=== PATIENT | female | born 1985 | race Hispanic/Latino ===

== ENCOUNTER 2018-12-03 14:50 | Emergency (ER) | payer OTHER ==
[2018-12-03] MEDS ORDERED: KETOROLAC 30 MG/ML INJ ONE (15:43)
[2018-12-03] MEDS ORDERED: DEXAMETHASONE 10 MG/ML VIAL ONE (15:43)
[2018-12-03] MEDS ORDERED: DIAZEPAM 10 MG/2 ML INJ SYRINGE ONE ×2 (15:44→17:55)
--- NOTE | 2018-12-03 17:37 | RAD REPORT ---
EXAM DESCRIPTION: RAD - Lumbar Spine 3 Views - 12/03/2018 4:30 pm CLINICAL HISTORY: Back pain, radiculopathy COMPARISON: January 2010 FINDINGS: A three-view lumbar spine examination was performed. Lumbar bodies are normal in height an d alignment. No fracture or acute bony process seen. No disc space narrowing. No pars defects identif ied. Degenerative changes are present at the T11-12 disc space minimally progressive. Wedging of the T11 b oriana is not new but may have progressed slightly from prior imaging. Lap band is in place. IMPRESSION: No acute finding in the lumbar spine. Wedge compression of T11 may be fractionally progressive from 2010. Degenerative change at T11-12 dis c space has progressed.
--- NOTE | 2018-12-03 17:54 | ER ---
Nurse's Notes [facility] Name: Miranda Pacheco Age: 33 yrs Sex: Female : 1985 Arrival Date: 12/03/2018 Time: 14:52 Bed 28 Private MD: Ken Phillips F Diagnosis: Sciatica;Sprain of ligaments of lumbar spine Presentation: 12/03 14:56 Presenting complaint: Patient states: low back pain after bending down to get something sv off of the floor yesterday. Transition of care: patient was not received from another setting of care. Onset of symptoms was December 02, 2018. Care prior to arrival: Medication(s) given: Aleve taken this morning. 14:56 Method Of Arrival: Wheelchair sv 14:56 Acuity: LUCIAN 4 sv 14:59 Risk Assessment: Do you want to hurt yourself or someone else? Patient reports no tw2 desire to harm self or others. Initial Sepsis Screen: Does the patient meet any 2 criteria? No. Patient's initial sepsis screen is negative. Does the patient have a suspected source of infection? No. Patient's initial sepsis screen is negative. Triage Assessment: 14:57 General: Appears in no apparent distress. uncomfortable, Behavior is calm, cooperative, sv appropriate for age. Pain: Complains of pain in low back area Pain currently is 10 out of 10 on a pain scale. Neuro: Level of Consciousness is awake, alert, obeys commands, Oriented to person, place, time, situation. Respiratory: Respiratory effort is even, unlabored, Respiratory pattern is regular, symmetrical. Musculoskeletal: Range of motion: intact in all extremities. 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 tw2 Historical: - Allergies: 14:57 No Known Allergies; sv - PMHx: 14:57 None; sv - PSHx: 14:57 Hernia repair; lap band; sv - Immunization history:: Flu vaccine is up to date. - Social history:: Smoking status: Patient/guardian denies using tobacco. - Ebola Screening: : No symptoms or risks identified at this time. Screenin:59 Abuse screen: Denies threats or abuse. Nutritional screening: No deficits noted. tw2 Tuberculosis screening: No symptoms or risk factors identified. Fall Risk None identified. Assessment: 14:59 General: Appears in no apparent distress. Behavior is calm, cooperative, appropriate tw2 for age. Pain: Complains of pain in low back area. Neuro: Level of Consciousness is awake, alert, obeys commands, Oriented to person, place, time, situation. Cardiovascular: Patient's skin is warm and dry. Respiratory: Airway is patent Respiratory effort is even, unlabored, Respiratory pattern is regular, symmetrical. GI: No signs and/or symptoms were reported involving the gastrointestinal system. : No signs and/or symptoms were reported regarding the genitourinary system. Musculoskeletal: Reports pain in low back area. 15:55 Reassessment: Patient appears in no apparent distress at this time. Patient and/or tw2 family updated on plan of care and expected duration. Pain level reassessed. Patient is alert, oriented x 3, equal unlabored respirations, skin warm/dry/pink. 16:40 Reassessment: Patient appears in no apparent distress at this time. Patient and/or tw2 family updated on plan of care and expected duration. Pain level reassessed. Patient is alert, oriented x 3, equal unlabored respirations, skin warm/dry/pink. pt now states pain "8-8.5" Patient states symptoms have improved. 17:35 Reassessment: Patient appears in no apparent distress at this time. Patient and/or tw2 family updated on plan of care and expected duration. Pain level reassessed. Patient is alert, oriented x 3, equal unlabored respirations, skin warm/dry/pink. 17:55 Reassessment: Patient appears in no apparent distress at this time. Patient and/or tw2 family updated on plan of care and expected duration. Pain level reassessed. Patient is alert, oriented x 3, equal unlabored respirations, skin warm/dry/pink. 18:32 Reassessment: Patient appears in no apparent distress at this time. Patient and/or tw2 family updated on plan of care and expected duration. Pain level reassessed. Patient is alert, oriented x 3, equal unlabored respirations, skin warm/dry/pink. Patient states feeling better. Patient states symptoms have improved. Vital Signs: 14:57 BP 109 / 53; Pulse 72; Resp 18; Temp 98.8; Pulse Ox 100% ; Weight 73.48 kg; Height 5 sv ft. 9 in. (175.26 cm); Pain 10/10; 15:54 BP 100 / 79; Pulse 63; Resp 17; Pulse Ox 100% on R/A; tw2 16:40 BP 104 / 64; Pulse 60; Resp 18; Pulse Ox 98% on R/A; Pain 8/10; tw2 17:55 BP 103 / 61; Pulse 57; Resp 18; Pulse Ox 99% on R/A; Pain 8/10; tw2 18:17 BP 105 / 69; Pulse 51; Resp 17; Pulse Ox 100% on R/A; tw2 18:32 BP 105 / 62; Pulse 58; Resp 17; Pulse Ox 100% on R/A; Pain 7/10; tw2 14:57 Body Mass Index 23.92 (73.48 kg, 175.26 cm) sv ED Course: 14:52 Patient arrived in ED. as 14:52 Ken Phillips MD is Private Physician. as 14:56 Triage completed. sv 14:57 Arm band placed on Patient placed in an exam room, on a stretcher. sv 14:58 Irma Berger RN is Primary Nurse. tw2 14:59 Bed in low position. Call light in reach. Pulse ox on. NIBP on. tw2 15:00 Agusto Gomez PA is PHCP. [facility] 15:00 Cliff Britton MD is Attending Physician. jmm 15:40 Inserted saline lock: 22 gauge in left forearm, using aseptic technique. tw2 16:25 Lumbar Spine (3 Views) XRAY In Process Unspecified. EDMS 17:54 Giuliano Alvarez DO is Referral Physician. jmm 17:56 Awaiting transportation, Awaiting: and results from provider PRIOR to discharge, pt tw2 unable to drive at this time d/t pain and medication given. 18:16 Awaiting transportation, Awaiting: pt unable to drive at this time, states her mom is tw2 on her way here but it may be another 30 minutes. 18:17 No provider procedures requiring assistance completed. tw2 18:32 IV discontinued, intact, bleeding controlled, No redness/swelling at site. Pressure tw2 dressing applied. Administered Medications: 15:40 Drug: Ketorolac 30 mg Route: IVP; Site: left forearm; tw2 17:43 Follow up: Response: No adverse reaction tw2 15:45 Drug: Valium 2 mg Route: IVP; Site: left forearm; tw2 16:00 Follow up: Response: No adverse reaction; Pain is decreased tw2 15:50 Drug: Decadron - Dexamethasone 10 mg Route: IVP; Site: left forearm; tw2 17:43 Follow up: Response: No adverse reaction tw2 17:45 Drug: Zofran 4 mg Route: IVP; Site: left forearm; tw2 18:32 Follow up: Response: No adverse reaction tw2 17:48 Drug: morphine 4 mg Route: IVP; Site: left forearm; tw2 18:32 Follow up: Response: No adverse reaction; Pain is decreased tw2 17:52 Drug: Valium 2 mg Route: IVP; Site: left forearm; tw2 18:32 Follow up: Response: No adverse reaction tw2 Outcome: 17:54 Discharge ordered by . poornima 18:32 Patient left the ED. tw2 18:32 Discharged to home via wheelchair, with friend. tw2 18:32 Condition: stable 18:32 Discharge instructions given to patient, friend, Instructed on discharge instructions, follow up and referral plans. no drinking with medication, no driving heavy equipment, medication usage, Demonstrated understanding of instructions, follow-up care, medications, Prescriptions given X 2. Signatures: Dispatcher [employer] Mimi Silverio RN Agusto Foreman PA PA jmm Martinez, Amelia as Wise, Tara, RN RN tw2 Corrections: (The following items were deleted from the chart) 18:39 17:35 BP 103 / 61; Pulse 57bpm; Resp 17bpm; Pulse Ox 100% RA; tw2 tw2
--- NOTE | 2018-12-03 17:55 | EDPHYS ---
Physician Documentation [facility] Name: Miranda Pacheco Age: 33 yrs Sex: Female : 1985 Arrival Date: 12/03/2018 Time: 14:52 Bed 28 Private MD: Ken Phillips F ED Physician Cliff Britton HPI: 12/03 15:06 This 33 yrs old Female presents to ER via Wheelchair with complaints of Back jmm Pain. 15:06 The patient presents with pain that is acute. Onset: The symptoms/episode jmm began/occurred acutely, 1 day(s) ago. The pain radiates to the right leg and left leg. Associated signs and symptoms: Pertinent negatives: abdominal pain, fever, hematuria, incontinence, weakness. This is a 33 year old female with a history of scoliosis and chronic back pain that presents to the ED with lower back pain radiating to her legs beginning after bending over yesterday. Patient states the pain radiates down both legs, more so on the left. Patient denies numbness to her legs, denies urinary retention or fecal incontinence. Patient states the pain also radiates up her back. . 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 tw2 Historical: - Allergies: 14:57 No Known Allergies; sv - PMHx: 14:57 None; sv - PSHx: 14:57 Hernia repair; lap band; sv - Immunization history:: Flu vaccine is up to date. - Social history:: Smoking status: Patient/guardian denies using tobacco. - Ebola Screening: : No symptoms or risks identified at this time. ROS: 15:06 Constitutional: Negative for fever, chills, and weight loss, Cardiovascular: Negative jmm for chest pain, palpitations, and edema, Respiratory: Negative for shortness of breath, cough, wheezing, and pleuritic chest pain. 15:06 Back: Positive for pain at rest, pain with movement. 15:06 All other systems are negative. Exam: 15:06 Constitutional: This is a well developed, well nourished patient who is awake, alert, jmm and in no acute distress. Head/Face: atraumatic. Eyes: EOMI, no conjunctival erythema appreciated ENT: Moist Mucus Membranes Neck: Trachea midline, Supple Chest/axilla: Normal chest wall appearance and motion. Cardiovascular: Regular rate and rhythm. No edema appreciated Respiratory: Normal respirations, no respiratory distress appreciated Abdomen/GI: Non distended, soft 15:06 Back: ROM is painful. 15:06 Back: lower lumbar vert pt tenderness is appreciated. 15:06 Musculoskeletal/extremity: ROM: intact in all extremities. 15:06 Neuro: extensor hallucis longus intact bilaterally. 15:06 Psych: Behavior/mood is pleasant, cooperative. Vital Signs: 14:57 BP 109 / 53; Pulse 72; Resp 18; Temp 98.8; Pulse Ox 100% ; Weight 73.48 kg; Height 5 sv ft. 9 in. (175.26 cm); Pain 10/10; 15:54 BP 100 / 79; Pulse 63; Resp 17; Pulse Ox 100% on R/A; tw2 16:40 BP 104 / 64; Pulse 60; Resp 18; Pulse Ox 98% on R/A; Pain 8/10; tw2 17:55 BP 103 / 61; Pulse 57; Resp 18; Pulse Ox 99% on R/A; Pain 8/10; tw2 18:17 BP 105 / 69; Pulse 51; Resp 17; Pulse Ox 100% on R/A; tw2 18:32 BP 105 / 62; Pulse 58; Resp 17; Pulse Ox 100% on R/A; Pain 7/10; tw2 14:57 Body Mass Index 23.92 (73.48 kg, 175.26 cm) sv MDM: 15:06 Patient medically screened. [facility] 17:52 Data reviewed: vital signs, nurses notes. Counseling: I had a detailed discussion with [facility] the patient and/or guardian regarding: the historical points, exam findings, and any diagnostic results supporting the discharge/admit diagnosis, radiology results, the need for outpatient follow up, to return to the emergency department if symptoms worsen or persist or if there are any questions or concerns that arise at home. 17:52 ED course: Imaging studies show no acute findings. Symptoms and PE findings are not [facility] consistent with cauda equina. Patient is advised to follow up with pain management or spine for further evaluation. . 12/03 15:42 Order name: Urine Dipstick--Ancillary (enter results) bd 12/03 15:42 Order name: Urine --Ancillary (enter results) bd 12/03 15:28 Order name: Lumbar Spine (3 Views) XRAY; Complete Time: 17:41 [facility] 12/03 15:28 Order name: Urine Test (obtain specimen); Complete Time: 15:40 [facility] 12/03 15:28 Order name: Saline Lock; Complete Time: 15:54 [facility] Administered Medications: 15:40 Drug: Ketorolac 30 mg Route: IVP; Site: left forearm; tw2 17:43 Follow up: Response: No adverse reaction tw2 15:45 Drug: Valium 2 mg Route: IVP; Site: left forearm; tw2 16:00 Follow up: Response: No adverse reaction; Pain is decreased tw2 15:50 Drug: Decadron - Dexamethasone 10 mg Route: IVP; Site: left forearm; tw2 17:43 Follow up: Response: No adverse reaction tw2 17:45 Drug: Zofran 4 mg Route: IVP; Site: left forearm; tw2 18:32 Follow up: Response: No adverse reaction tw2 17:48 Drug: morphine 4 mg Route: IVP; Site: left forearm; tw2 18:32 Follow up: Response: No adverse reaction; Pain is decreased tw2 17:52 Drug: Valium 2 mg Route: IVP; Site: left forearm; tw2 18:32 Follow up: Response: No adverse reaction tw2 Disposition: 12/03/18 17:54 Discharged to Home. Impression: Sciatica, Sprain of ligaments of lumbar spine. - Condition is Stable. - Discharge Instructions: Back Pain, Adult. - Prescriptions for Ultracet 37.5- 325 mg Oral Tablet - take 1 tablet by ORAL route every 6 hours - for up to 5 days; do not exceed 8 tablets per day.; 20 tablet. Zanaflex 4 mg Oral Tablet - take 1 tablet by ORAL route every 8 hours As needed; 20 tablet. - Medication Reconciliation Form, Thank You Letter, Antibiotic Education, Prescription Opioid Use, Work release form form. - Follow up: Giuliano Alvarez DO; When: 2 - 3 days; Reason: Recheck today's complaints, Continuance of care, Re-evaluation by your physician. Addendum: 12/06/2018 10:17 Co-signature as Attending Physician, Cliff Britton MD. g s Signatures: Dispatcher [employer] Mimi Silverio RN RN sv Agusto Gomez PA PA jmm Wise, Tara, NENA RN tw2 Cliff Britton MD MD gs Corrections: (The following items were deleted from the chart) 12/03 18:32 17:54 12/03/2018 17:54 Discharged to Home. Impression: Sciatica; Sprain of ligaments of tw2 lumbar spine. Condition is Stable. Forms are Work release form, Medication Reconciliation Form, Thank You Letter, Antibiotic Education, Prescription Opioid Use. Follow up: Giuliano Alvarez; When: 2 - 3 days; Reason: Recheck today's complaints, Continuance of care, Re-evaluation by your physician. poornima
[2018-12-03] MEDS ORDERED: MORPHINE 4 MG/ML SYR ONE (17:56)
[2018-12-03] MEDS ORDERED: ONDANSETRON 4 MG/2 ML VIAL ONE (17:56)
[2018-12-03 18:36] VITALS: TEMP 98.8
[2018-12-03 18:43] VITALS: BP 105/69; O2SAT 100
[2018-12-03 19:01] LABS: Urine Blood TRACE (NEG); Urine Glucose NEGATIVE (NEG); Urine Protein NEGATIVE (NEG); Urine pH 5.5 (5.0-7.0)
== END 2018-12-03 18:32 | disposition home or self-care (01) ==
LOC: ER 14:50
DX: M54.30 Sciatica, unspecified side (principal); S13.4XXA Sprain of ligaments of cervical spine, initial encounter
CPT/HCPCS: 72100; 81003; 81025; 96374; 96375; 99284; J1100; J2405; J3360 ×2

== ENCOUNTER 2020-10-23 11:30 | Emergency (ER) | payer OTHER ==
[2012-05-13 11:42] VITALS: BP 117/74
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
--- OUTSIDE RECORDS SUMMARY | 2020-10-23 11:32 | XMS REPORT | Summary of Care ---
:1985 Author Organization [facility] - Health Address [address] [place] [address] Care Team Providers Name Role Phone Pcp, Does Not Have A Primary Care Provider Encounter Details Date Type Department Care Team Description 10/07/2020 Orders Only [facility] Doctor Unassigned, [address] [facility] Name [place] [id number] [place] [address] Allergies No Known Allergiesdocumented as of this [...] Overview: Rule out PTSD ICD10 Diagnosis Term Furnace Process Supervisor Utility Panic disorder without agoraphobia 10/09/2006 documented [...] Influenza Virus Vaccine Quad .5 mL IM 6+ MO 10/04/2019, 10/0 01/201808/24/2019 Influenza Virus Vaccine Quad IM 3+ YRS 09/03/2015 TDAP 01/21/2016 documented as of this encounter Social History Tobacco Use Types Packs/Day Years Used Date Former Smoker Smokeless Tobacco: Never Used Alcohol Use Drinks/Week oz/Week Comments No 0 Standard drinks or equivalent 0.0 social Sex Assigned at Date Recorded Not on file COVID-19 Exposure Response Date Recorded In the last month, have you been in contact with No / Unsure 10/07/2020 10:38 AM CONTOUR PATH 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 documented as of this encounter Last Filed Vital Signs Not on filedocumented in this encounter Plan of Treatment Date Type Specialty Care Team Description 10/07/2020 Office Visit Obstetrics & Gynecology Fernanda Jones PA-C [address] [phone] Health Maintenance Due Date Last Done Comments PNEUMOCOCCAL 0-64 YEARS COMBINED 1991 SERIES (1 of 1 - PPSV23) PAP SMEAR 09/03/2018 09/03/2015, 01/26/2006 INFLUENZA VACCINE (#1) 2020 10/04/2019, 08/24/2018, 09/03/2015 Depression Screening 01/24/2021 01/25/2020 DTaP,Tdap,and Td Vaccines (2 - Td) 01/20/2026 01/21/2016 documented as of this encounter Procedures Procedure Name Priority Date/Time Associated Diagnosis Comme nts ASSIGNMENT OF BENEFITS Routine 10/07/2020 10:39 AM CONTOUR PATH TAPE MILL OPERATOR documented in this encounter Results Not on filedocumented in this encounter Insurance Payer Benefit Plan / Subscriber ID Effective Dates Phone Addre ss Type Group MEDICARE MEDICARE PART [id number] 2009-Presserg [phone] [address] Medicare A & B t 2 [id number] KEN RONQUILLO [id number] [facility] MEDICAID OF [id number] 2014-[place]pr[place] [phone] Medicaid [facility] [id number] [place] [address] documented as of this encounter
--- OUTSIDE RECORDS SUMMARY | 2020-10-23 11:32 | XMS REPORT | Continuity of Care Document ---
:1985 Author Organization [facility] t Address [address] [place] [address] Care Team Providers Name Role Phone Robert QUESADA Attending Clinician Problems This patient has no known problems. Allergies, Adverse Reactions, Alerts This patient has no known allergies or adverse reactions. Medications This patient has no known medications. Procedures This patient has no known procedures. Encounters Start End Encounter Admission Attending Care Care Encounter Source Date/Time Date/Time Type Type Clinicians Facility Department ID 2020-10-08 2020-10-08 Case HELGA Jones [id number] 00:00:00 00:00:00 Management Fernanda Leo [id number] Ana [id number] Profd[address]io [phone] [address] 2020-10-07 2020-10-07 Office HELGA Jones [id number] 10:40:17 11:56:46 Visit Fernanda Leo [id number] Ana [id number] Professio [phone] [address] [facility] Results This patient has no known results.
--- OUTSIDE RECORDS SUMMARY | 2020-10-23 11:33 | XMS REPORT | Summary of Care ---
:1985 Author Organization [facility] Address [address] [place] [address] Care Team Providers Name Role Phone Pcp, Does Not Have A Primary Care Provider Reason for Referral Radiology Services (Routine) Status Reason Specialty Diagnoses / Referred By Referred To Procedures Contact Contact New Request Diagnostic Diagnoses Screening breast examination Lump or mass in breast Vanaphan, Radiology Procedures BI ULTRASOUND BREAST COMPLETE BILATERAL SANGITA [facility] [address] [address] Reason for Visit Reason Comments Well Woman Exam Encounter Details Date Type Department Care Team Description 10/07/2020 Office Visit [facility] Women's Fernanda Jones Well woman exam with routine gynecological exam (Primary Dx); Yolande QUESADA Screening breast examination; [address] Screening examination for ve nereal disease; [address] [place] [address] Screening for human immunodeficiency vir us; Drive, [address] [address] Needs flu shot; [place], [place] Screening for v iral disease; [id number] Lump or mass in breast; [phone] Hair loss; [phone] Acne, unspecifi ed acne type; (Fax) Encounter [...] Overview: Rule out PTSD ICD10 Diagnosis 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 documented as of this encounter Last Filed Vital Signs Vital Sign Reading Time Taken Comments Blood Pressure 107/67 10/07/2020 11:12 AM ULTRASOUND MANAGER Pulse 51 10/07/2020 11:12 AM ULTRASOUND MANAGER Temperature 36.8 C (98.3 F) 10/07/2020 11:12 AM ULTRASOUND MANAGER Respiratory Rate 18 10/07/2020 11:12 AM ULTRASOUND MANAGER Oxygen Saturation - - Inhaled Oxygen Concentration - - Weight 76.7 kg (169 lb) 10/07/2020 11:12 AM ULTRASOUND MANAGER Height 175.3 cm (5' 9") 10/07/2020 11:12 AM ULTRASOUND MANAGER Body Mass Index 24.96 10/07/2020 11:12 AM ULTRASOUND MANAGER documented in this encounter Progress Notes Fernanda [...] N/A 03/29/2016 Surgeon: Dolores Louis MD; Location: [facility] OR Location COLONOSCOPY 2009 [...] file Gets together: Not on file Attends hindu service: Not on file Active member of [...] Feels safe at home Pt states her hindu preference is Confucianism Social History Substance and Sexual Activity Sexual [...] ANTIGEN, HIV 1/2 AG-AB WITH REFLEX, FLU VACC(7868-6148), 6+ MONTHS, IM, QUAD (FLUZONE/FLULAVAL/FLUARIX), PAP Smear-Liquid Based, HIGH RISK HPV-THIN PREP, GC & CHLAMYDIA AMPLIFIED ASSAY, GALV ONLY - VAGINAL PATHOGENS BY NUCLEIC ACID TESTING, CBC WITH DIFF, COMP. METABOLIC PANEL (68180), LIPID PANEL (55748)(TOTAL CHOLESTEROL, TRIGLYCERIDES, HDL), THYROID STIMULATING HORMONE, CANCELED: [...] WITH REFLEX Needs flu shot Plan: FLU VACC(2900-0200), 6+ MONTHS, IM, QUAD (FLUZONE/FLULAVAL/FLUARIX) Screening for viral disease Plan: HEPATITIS B SURFACE ANTIGEN, GALV ONLY - VAGINAL PATHOGENS BY NUCLEIC ACID TESTING Lump or mass in breast Plan: BI ULTRASOUND BREAST COMPLETE BILATERAL Hair loss Plan: CBC WITH DIFF, COMP. METABOLIC PANEL (19614), LIPID PANEL (81618)(TOTAL CHOLESTEROL, TRIGLYCERIDES, HDL), THYROID STIMULATING HORMONE Acne, unspecified acne type Plan: CBC WITH DIFF, COMP. METABOLIC PANEL (04817), LIPID PANEL (90660)(TOTAL CHOLESTEROL, TRIGLYCERIDES, HDL), THYROID STIMULATING HORMONE Encounter for screening for cardiovascular disorders Plan: LIPID PANEL (31593)(TOTAL CHOLESTEROL, TRIGLYCERIDES, HDL) Return to clinic in 1 yr WWE Discussed treatment options. Reviewed patient instructions and provided printed copy. This visit did not involve counseling and coordination that comprised more than 50% of the visit time. 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 exam ACID TESTING Screening examination for [...] Routine Well woman exam wit h Expected: (79739) routine gynecolo gical exam 10/07/2020, Hair loss Expires: 10/07/2021 Acne, unspecified acne type LIPID PANEL LAB Routine Encounter for screening for Expected: ([id number])(TOTAL cardiovascular d isorders 10/07/2020, CHOLESTEROL, Well woman [...] Date/Time Associated Diagnosis Comme nts FLU VACC (2650-7496), Routine 10/07/2020 11:23 AM Well woman e xam with 6+ MONTHS, IM, QUAD ULTRASOUND MANAGER routine gynecological exam Needs flu shot documented [...] Addre ss Type Group MEDICARE MEDICARE PART [id number] 2009-Aditi [phone] [address] [facility] Medicare A & B t 2 [id number] KEN RONQUILLO [address] [facility] MEDICAID OF [id number] 2014-Prese [phone] [address] Medicaid [facility] [address] [place] [address] documented as of this encounter
--- OUTSIDE RECORDS SUMMARY | 2020-10-23 11:33 | XMS REPORT | Summary of Care ---
:1985 Author Organization [facility] Address [address] [place] [address] Care Team Providers Name Role Phone Pcp, Does Not Have A Primary Care Provider Reason for Visit Reason Comments New Medication Encounter Details Date Type Department Care Team Description 10/08/2020 Case Management [facility] Women's Fernanda Jones N ew Medication Healthcare- [facility]-[address], [address] [place] [address] [address] [address] [place] [address] [phone] Allergies No Known Allergiesdocumented as of this encounter (statuses as of 10/08/2020) Medications Medication Sig Dispensed Refills Start Date End Date Status metroNIDAZOLE 500 Take 1 14 tablet 0 10/08/2020 A ctive mg tablet by tabletIndications: mouth every BV (bacterial 12 (twelve) vaginosis) hours. metroNIDAZOLE 500 Take 1 14 tablet 0 10/05/2019 D iscontinued mg tablet by 0 (Patient tabletIndications: mouth every Reported) BV (bacterial 12 (twelve) vaginosis) hours. 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 documented as of this encounter Last Filed Vital Signs Not on filedocumented in this encounter Plan of Treatment Date Type Specialty Care Team Description 10/22/2020 Appointment Radiology Fernanda Jones PA-C [address] [place] [phone] 10/07/2021 Office Visit Obstetrics & Gynecology Fernanda Jones PA-C [address] [place] [phone] Health Maintenance Due Date Last Done Comments PNEUMOCOCCAL 0-64 YEARS COMBINED 1991 SERIES (1 of 1 - PPSV23) PAP SMEAR 09/03/2018 09/03/2015, 01/26/2006 Depression Screening 01/24/2021 01/25/2020 DTaP,Tdap,and Td Vaccines (2 - Td) 01/20/2026 01/21/2016 INFLUENZA VACCINE Completed 10/07/2020, 10/04/2019, 08/24/2018, Additional history exists documented as of this encounter Results Not on filedocumented in this encounter Visit Diagnoses Diagnosis BV (bacterial vaginosis) - Primary Vaginitis and vulvovaginitis, unspecifie d documented in this encounter Insurance Payer Benefit Plan / Subscriber ID Effective Dates Phone Addre ss Type Group MEDICARE MEDICARE PART [id number] 2009-Aditi [phone] [address] Medicare A & B t 2 [id number] K[place] [address] [facility] MEDICAID OF [id number] 2014-Bry [phone] [address] [facility] [id number] [place] [address] documented as of this encounter
[2020-10-23] MEDS ORDERED: DIAZEPAM 5 MG TABLET ONE (12:49)
[2020-10-23] MEDS ORDERED: HYDROCODONE/APAP 10/325 TAB ONE (12:49)
[2020-10-23] MEDS ORDERED: KETOROLAC 30 MG/ML INJ ONE (12:50)
[2020-10-23] MEDS ORDERED: dexAMETHasone 10 MG/ML VIAL ONE (12:50)
[2020-10-23] MEDS ORDERED: FENTANYL CITR 100 MCG/2 ML ONE (14:34)
--- NOTE | 2020-10-23 15:15 | EDPHYS ---
Physician Documentation [facility] Name: Miranad Pacheco Age: 35 yrs Sex: Female : 1985 Arrival Date: 10/23/2020 Time: 11:32 Bed 14 Private MD: Ken Phillips F ED Physician Esvin Puga HPI: 10/23 12:25 This 35 yrs old Female presents to ER via Wheelchair with complaints of Low jmm Back Pain. 12:25 The patient presents with pain that is acute. Onset: The symptoms/episode jmm began/occurred acutely, yesterday. Modifying factors: The patient symptoms are alleviated by lying still, the patient symptoms are aggravated by movement. Associated signs and symptoms: Pertinent negatives: dysuria, headache, hematuria, incontinence, tingling, urinary retention, vomiting, weakness. This is a 35 year old female with no chronic medical conditions that presents to the ED with complaints of lower back pain beginning yesterday while picking up a car seat/stroller attachment. Pain radiates down the left leg. Denies bowel or bladder issues. . 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 - Social history:: Smoking status: Patient/guardian denies using tobacco, the patient reports quitting approximately 8 years ago. ROS: 12:25 Constitutional: Negative for fever, chills, and weight loss, Cardiovascular: Negative jmm for chest pain, palpitations, and edema, Respiratory: Negative for shortness of breath, cough, wheezing, and pleuritic chest pain. 12:25 MS/Extremity: Negative for injury and deformity, Skin: Negative for injury, rash, and discoloration, Neuro: Negative for headache, weakness, numbness, tingling, and seizure, Psych: Negative for depression, anxiety, suicide ideation, homicidal ideation, and hallucinations. 12:25 Back: Positive for pain with movement. 12:25 All other systems are negative. Exam: 12:25 Constitutional: This is a well developed, well nourished patient who is awake, alert, jmm and in no acute distress. Head/Face: atraumatic. Eyes: EOMI, no conjunctival erythema appreciated ENT: Moist Mucus Membranes Neck: Trachea midline, Supple Chest/axilla: Normal chest wall appearance and motion. Cardiovascular: Regular rate and rhythm. No edema appreciated Respiratory: Normal respirations, no respiratory distress appreciated Abdomen/GI: Non distended, soft 12:25 Back: painful rom noted to the left lower lumbar spine, no midline tenderness, from appreciated/painful, . 12:25 Musculoskeletal/extremity: ROM: intact in all extremities. 12:25 Neuro: Orientation: is normal, Mentation: is normal, Memory: is normal. 12:25 Psych: Behavior/mood is pleasant, cooperative. Vital Signs: 12:10 BP 106 / 73; Pulse 76; Resp 18 S; Temp 99.3; Pulse Ox 99% on R/A; Weight 77.11 kg (R); ca1 Height 5 ft. 9 in. (175.26 cm) (R); Pain 9/10; 13:08 BP 97 / 56; Pulse 59; Resp 17 S; Pulse Ox 100% on R/A; jd3 14:29 BP 95 / 46; Pulse 62; Resp 18; Pulse Ox 100% on R/A; zb 12:10 Body Mass Index 25.10 (77.11 kg, 175.26 cm) ca1 MDM: 12:25 Patient medically screened. [facility] 15:11 Data reviewed: vital signs, nurses notes. Counseling: I had a detailed discussion with poornima the patient and/or guardian regarding: the historical points, exam findings, and any diagnostic results supporting the discharge/admit diagnosis, radiology results, the need for outpatient follow up, to return to the emergency department if symptoms worsen or persist or if there are any questions or concerns that arise at home. ED course: Patient is alert and non toxic in appearance in the ED. Pain has decreased in the ED. I do not suspect cord compression or cauda equina. Patient advised to follow up with pcp and otherwise given strict return precautions. Patient understood and agrees with the plan of care. . Administered Medications: 12:46 Drug: Ketorolac 30 mg Route: IM; Site: left gluteus; zb 13:32 Follow up: Response: No adverse reaction; No change in condition zb 12:46 Drug: Decadron 10 mg Route: IM; Site: left gluteus; zb 13:32 Follow up: Response: No adverse reaction; Marked relief of symptoms zb 12:46 Drug: [place] 10 mg-325 mg 1 tabs {Note: RASS 0.} Route: PO; zb 13:32 Follow up: Response: No adverse reaction; RASS: Alert and Calm (0) zb 12:47 Drug: Valium 5 mg Route: PO; zb 13:32 Follow up: Response: No adverse reaction; Marked relief of symptoms zb 14:28 Drug: fentaNYL (PF) 50 mcg Route: IM; Site: left deltoid; zb 15:20 Follow up: Response: No adverse reaction; Pain is decreased; RASS: Alert and Calm (0) zb Disposition: 16:11 Co-signature as Attending Physician, Esvin Puga MD I agree with the assessment and kdr plan of care. Disposition: 10/23/20 15:15 Discharged to Home. Impression: Low back pain. - Condition is Stable. - Discharge Instructions: Back Pain, Adult. - Prescriptions for Ultracet 37.5- 325 mg Oral Tablet - take 1 tablet by ORAL route every 6 hours - for up to 5 days; do not exceed 8 tablets per day.; 12 tablet. orphenadrine citrate 100 mg Oral Tablet Sustained Release - take 1 tablet by ORAL route 2 times per day As needed; 20 tablet. - Medication Reconciliation Form, Thank You Letter, Antibiotic Education, Prescription Opioid Use form. - Follow up: Ken Phillips MD; When: 2 - 3 days; Reason: Recheck today's complaints, Continuance of care, Re-evaluation by your physician. Signatures: Esvin Puga MD MD kdr Mickail, Joel, PA PA jmm Davies, Jonathon, RN RN jd3 Acob, Cheryl, RN RN ca1 Brown, Zipporah, RN RN zb Corrections: (The following items were deleted from the chart) 15:56 15:15 10/23/2020 15:15 Discharged to Home. Impression: Low back pain. Condition is zb Stable. Forms are Medication Reconciliation Form, Thank You Letter, Antibiotic Education, Prescription Opioid Use. Follow up: Ken Phillips; When: 2 - 3 days; Reason: Recheck today's complaints, Continuance of care, Re-evaluation by your physician. poornima
--- NOTE | 2020-10-23 15:15 | ER ---
Nurse's Notes [facility] Name: Miranda Pacheco Age: 35 yrs Sex: Female : 1985 Arrival Date: 10/23/2020 Time: 11:32 Bed 14 Private MD: Ken Phillips F Diagnosis: Low back pain Presentation: 10/23 12:10 Chief complaint: Patient states: Low back pain since 0700 this morning. It started on ca1 the L side, now across. Denies urinary symptoms. Denies fever. Denies injury to the back. Has Hx of mild scoliosis and herniated discs. states, "this kind of pain happens once or twice a year". Coronavirus screen: Client denies travel out of the [place] in the last 14 days. At this time, the client does not indicate any symptoms associated with coronavirus-19. Ebola Screen: Patient negative for fever greater than or equal to 101.5 degrees Fahrenheit, and additional compatible Ebola Virus Disease symptoms Patient denies exposure to infectious person. Patient denies travel to an Ebola-affected area in the 21 days before illness onset. No symptoms or risks identified at this time. Initial Sepsis Screen: Does the patient meet any 2 criteria? No. Patient's initial sepsis screen is negative. Does the patient have a suspected source of infection? No. Patient's initial sepsis screen is negative. Risk Assessment: Do you want to hurt yourself or someone else? Patient reports no desire to harm self or others. Onset of symptoms was October 23, 2020 at 07:00. 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 - Social history:: Smoking status: Patient/guardian denies using tobacco, the patient reports quitting approximately 8 years ago. Screenin:55 Abuse screen: Denies threats or abuse. Denies injuries from another. Nutritional zb screening: No deficits noted. Tuberculosis screening: No symptoms or risk factors identified. Fall Risk None identified. Assessment: 12:47 General: Appears in no apparent distress. uncomfortable, Behavior is calm, cooperative, zb appropriate for age. Pain: Complains of pain in lumbar area, left low back and right low back Pain does not radiate. Pain currently is 10 out of 10 on a pain scale. Quality of pain is described as burning, Pain began Today Is continuous, Alleviated by repositioning. Neuro: Level of Consciousness is awake, obeys commands, Oriented to person, place, time, situation. Cardiovascular: Capillary refill < 3 seconds in bilateral fingers Patient's skin is warm and dry. Respiratory: Airway is patent Respiratory effort is even, unlabored. GI: Abdomen is flat, non-distended. : No signs and/or symptoms were reported regarding the genitourinary system. : Denies burning with urination, urinary frequency. EENT: No signs and/or symptoms were reported regarding the EENT system. Derm: Skin is intact, Skin is normal. Musculoskeletal: Circulation, motion, and sensation intact. Range of motion: limited in bilateral legs. 13:38 Reassessment: Patient appears in no apparent distress at this time. Patient and/or zb family updated on plan of care and expected duration. Pain level reassessed. Patient is alert, oriented x 3, equal unlabored respirations, skin warm/dry/pink. pt was able to ambulate to restroom, with minimal discomfort Patient states feeling better. Patient states symptoms have improved. 14:28 Reassessment: Patient appears in no apparent distress at this time. Patient and/or zb family updated on plan of care and expected duration. Pain level reassessed. Patient is alert, oriented x 3, equal unlabored respirations, skin warm/dry/pink. pt still in pain given medication, reposition to more comfortable position. 15:30 Reassessment: Patient appears in no apparent distress at this time. Patient and/or zb family updated on plan of care and expected duration. Pain level reassessed. Patient is alert, oriented x 3, equal unlabored respirations, skin warm/dry/pink. pt states she is feeling better. appears more comfortable Patient states symptoms have improved. Vital Signs: 12:10 BP 106 / 73; Pulse 76; Resp 18 S; Temp 99.3; Pulse Ox 99% on R/A; Weight 77.11 kg (R); ca1 Height 5 ft. 9 in. (175.26 cm) (R); Pain 9/10; 13:08 BP 97 / 56; Pulse 59; Resp 17 S; Pulse Ox 100% on R/A; jd3 14:29 BP 95 / 46; Pulse 62; Resp 18; Pulse Ox 100% on R/A; zb 12:10 Body Mass Index 25.10 (77.11 kg, 175.26 cm) ca1 ED Course: 11:32 Patient arrived in ED. ag5 11:32 Ken Phillips MD is Private Physician. ag5 12:13 Triage completed. ca1 12:14 Arm band placed on right wrist. ca1 12:17 Agusto Gomez PA is PHCP. jmm 12:17 Esvin Puga MD is Attending Physician. jmm 12:24 Christiana Rene RN is Primary Nurse. zb 12:24 Nurse Practitioner and/or Physician Bench Loom Weaver to see patient. zb 14:00 Patient has correct armband on for positive identification. Call light in reach. zb 15:14 Ken Phillips MD is Referral Physician. jmm 15:55 No provider procedures requiring assistance completed. Patient did not have IV access zb during this emergency room visit. Administered Medications: 12:46 Drug: Ketorolac 30 mg Route: IM; Site: left gluteus; zb 13:32 Follow up: Response: No adverse reaction; No change in condition zb 12:46 Drug: Decadron 10 mg Route: IM; Site: left gluteus; zb 13:32 Follow up: Response: No adverse reaction; Marked relief of symptoms zb 12:46 Drug: [place] 10 mg-325 mg 1 tabs {Note: RASS 0.} Route: PO; zb 13:32 Follow up: Response: No adverse reaction; RASS: Alert and Calm (0) zb 12:47 Drug: Valium 5 mg Route: PO; zb 13:32 Follow up: Response: No adverse reaction; Marked relief of symptoms zb 14:28 Drug: fentaNYL (PF) 50 mcg Route: IM; Site: left deltoid; zb 15:20 Follow up: Response: No adverse reaction; Pain is decreased; RASS: Alert and Calm (0) zb Outcome: 15:15 Discharge ordered by . poornima 15:55 Discharged to home via wheelchair. zb 15:55 Condition: good 15:55 Discharge instructions given to patient, Instructed on discharge instructions, follow up and referral plans. medication usage, Demonstrated understanding of instructions, follow-up care, medications, Prescriptions given X 2. 15:56 Patient left the ED. zb Signatures: Agusto Gomez PA PA jmm Davies, Jonathon, RN RN jd3 Graciela Holley RN RN ca1 Gaskin, Ajare agChristiana Monzon RN RN zyuliana
== END 2020-10-23 15:56 | disposition home or self-care (01) ==
LOC: ER 11:30
DX: M54.5 Low back pain (principal)
CPT/HCPCS: 96372; 99283; J3010; J1100

== ENCOUNTER 2020-11-26 15:51 | Emergency (ER) | payer OTHER ==
--- OUTSIDE RECORDS SUMMARY | 2020-11-26 15:53 | XMS REPORT | Continuity of Care Document ---
:1985 Author Organization [facility] t Address [address] [place] [address] Care Team Providers Name Role Phone Robert QUESADA Attending Clinician Problems This patient has no known problems. Allergies, Adverse Reactions, Alerts This patient has no known allergies or adverse reactions. Medications This patient has no known medications. Procedures This patient has no known procedures. Encounters Start End Encounter Admission Attending Care Care Encounter Source Date/Time Date/Time Type Type Clinicians Facility Department ID 2020-11-19 2020-11-19 [facility] [id number] 10:00:00 23:59:00 Encounter Fernanda Ahmet [id number] [place] [id number] [place] [id number] 2020-10-07 2020-10-07 [facility] [id number] 10:40:17 11:56:46 Visit Fernanda Ahmet [id number] [place] [id number] [place] [id number] [facility] [address] [facility] Results This patient has no known results.
--- OUTSIDE RECORDS SUMMARY | 2020-11-26 15:54 | XMS REPORT | Summary of Care ---
:1985 Author Organization [facility] - Health Address [address] [place] [address] Care Team Providers Name Role Phone Yoel Phillips Primary Care Provider Encounter Details Date Type Department Care Team Description 11/19/2020 Orders Only [facility] Doctor Unassigned, No [address] [facility] [place] [address] [address] [place] [address] Allergies No Known Allergiesdocumented as of this encounter (statuses as of 11/19/2020) Medications Medication Sig Dispensed Refills Start Date End Date Status metroNIDAZOLE 500 mg Take 1 tablet by 14 tablet 0 10/08/2020 Active tabletIndications: BV mouth every 12 (bacterial vaginosis) (twelve) hours. 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 Panic disorder without agoraphobia 10/09/2006 documented as of this encounter (statuses as of 11/19/2020) Resolved Problems Problem Noted Date Resolved Date Active labor at term 03/29/2016 05/06/2016 37 weeks gestation of 03/29/2016 04/03/20 16 Transverse lie of fetus 03/29/2016 04/03/2016 Liveborn , of tapia , born in hospital by 03/29/2016 04/03/2016 delivery [place] breech presentation, fetus 1 03/18/2016 High-risk , third trimester 01/21/2016 High-risk supervision, second trimester 11/26/2015 01/21/2016 Supervision of high-risk with insufficient 015 09/19/2015 care, unspecified trimester History of maternal vaginal laceration, currently 1 04/03/2016 Lactating mother 09/19/2015 03/04/2016 documented as of this encounter (statuses as of 11/19/2020) Immunizations Name Administration Dates Next Due Influenza [...] Assigned at Date Recorded Not on file documented as of this encounter Last Filed Vital Signs Not on filedocumented in this encounter Plan of Treatment Date Type Specialty Care Team Description 10/07/2021 Office Visit Obstetrics & Gynecology Fernanda Jones PA-C [address] [id number] [phone] Health Maintenance Due Date Last Done Comments PNEUMOCOCCAL 0-64 YEARS COMBINED 1991 SERIES (1 of 1 - PPSV23) Depression Screening 01/24/2021 01/25/2020 PAP SMEAR 10/07/2023 10/07/2020, 09/03/2015, 01/26/2006 DTaP,Tdap,and Td Vaccines (2 - Td) 01/20/2026 01/21/2016 INFLUENZA VACCINE Completed 10/07/2020, 10/04/2019, 08/24/2018, Additional history exists documented as of this encounter Procedures Procedure Name Priority Date/Time Associated Diagnosis Comme nts CONSENT/REFUSAL FOR Routine 11/19/2020 10:05 AM DIAGNOSIS AND 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 Medicare A & B t 2 [id number] K[place]O [address] [facility] MEDICAID OF [id number] 2014-Bry [phone] Medicaid [place] 0 [id number] [place] [address] documented as of this encounter
--- OUTSIDE RECORDS SUMMARY | 2020-11-26 15:54 | XMS REPORT | Summary of Care ---
:1985 Author Organization [facility] Address [address] [id number] Care Team Providers Name Role Phone Yoel Phillips Primary Care Provider Reason for Visit Reason Comments LAB WORK Auth/Cert Status Reason Specialty Diagnoses / Procedures Referred By Ese johnson Referred To Contact Phlebotomy Procedures Adc Pob Lab Draw LIPID PANEL Professional Office ([id number])(TOTAL [facility] CHOLESTEROL, [address] [place] [address] pitoh TRIGLYCERIDES, HDL) , [address] [place] [address] Phone: Fax: Encounter Details Date Type Department Care Team Description 11/19/2020 Adjuster Piano Action Visit [facility] Dolores Louis MD [address] [place] [address] [address] [place] [address] Well woman exam with routine gynecologic al exam; Professional Office Pob, Adc Lab Main Screening examination for venereal disea se; [facility] Phlebotomy Screenin g for viral disease; Lab Screening for human immunode ficiency virus; Professional Office Hair los s; [facility] Acne, unspecified acne type; [address] [place] [address] Encounter for screening for cardiovascular disorders , [address] [place] [address] Allergies No Known Allergiesdocumented as of this [...] Overview: Rule out PTSD ICD10 Diagnosis 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 documented as of this encounter Last Filed Vital Signs Not on filedocumented in this encounter Nursing Notes Santos Hidalgo - 11/19/2020 9:45 AM CST Venipuncture collection performed by clean technique on the left anticubitus. Total of 1 attempts were made. Slight pressure and a bandage/dressing were applied to the site(s). The patient experienced no complications. The following specimens were processed according to instructions and sent to [facility] laboratories per lab order on today: LT BLUE SST 2 RED 1 LAV 1 PPT DK GREEN (LiHep) DK GREEN (SodH) BERMEO DK BLUE (K2) DK BLUE (S) ACD Blood Culture NIPT/NTD documented in this encounter Plan of Treatment Date Type Specialty Care Team Description 10/07/2021 Office Visit Obstetrics & Gynecology Fernanda Jones PA-C [address] [place] [address] [phone] Name Type Priority Associated Diagnoses Date/Ti hi ADC OR DANIA ONLY - LAB Routine Well woman exam wit h routine 11/19/2020 10:59 AM RPR gynecological ex am FIRER BOILER Screening examination for venereal disease HCV ANTIBODY LAB Routine Well woman exam with routine 11/19/2020 10:59 AM gynecological ex am FIRER BOILER Screening examination for venereal disease HEPATITIS B SURFACE LAB Routine Well woman exam with routine 11/19/2020 10:59 AM ANTIGEN gynecological ex am FIRER BOILER Screening examination for venereal disease Screening for viral disease HIV 1/2 AG-AB WITH LAB Routine Well woman exam with r outine 11/19/2020 10:59 AM REFLEX gynecological ex am FIRER BOILER Screening examination for venereal disease Screening for human immunodeficiency virus CBC WITH DIFF LAB Routine Well woman exam with routin e 11/19/2020 10:59 AM gynecological ex am FIRER BOILER Hair loss Acne, unspecified acne type COMP. METABOLIC PANEL LAB Routine Well woman exam wit h routine 11/19/2020 10:59 AM ([id number]) gynecological ex am FIRER BOILER Hair loss Acne, unspecified acne type LIPID PANEL LAB Routine Encounter for screening for 11/19/2020 10:59 AM ([id number])(TOTAL cardiovascular d isorders FIRER BOILER CHOLESTEROL, Well woman exam with routine TRIGLYCERIDES, HDL) gynecologica l exam Hair loss Acne, unspecified acne type THYROID STIMULATING LAB Routine Well woman exam with routine 11/19/2020 10:59 AM HORMONE gynecological ex am FIRER BOILER Hair loss Acne, unspecified acne type Health Maintenance Due [...] woman exam with routine gynecologic al exam Routine gynecological examination Screening examination for venereal disea se Screening for viral disease Special screening examination for unspec ified viral disease Screening for human immunodeficiency vir us Special screening examination for other specified viral diseases Hair loss Alopecia, unspecified Acne, unspecified acne type Encounter for screening for cardiovascul ar disorders Screening for other and unspecified card iovascular conditions documented in this encounter Insurance Payer Benefit Plan / Subscriber ID Effective Dates Phone Addre ss Type Group MEDICARE MEDICARE PART [id number] 2009-Presen [phone] Medicare A & B t 2 [id number] [place] [id number] [facility] MEDICAID OF [id number] 2014-Prese [phone] Medicaid [facility] [id number] [place] [address] documented as of this encounter
--- OUTSIDE RECORDS SUMMARY | 2020-11-26 15:54 | XMS REPORT | Summary of Care ---
:1985 Author Organization [facility] Address [address] [place] [address] Care Team Providers Name Role Phone Pcp, Does Not Have A Primary Care Provider Yoel Phillips Primary Care Provider Reason for Referral Radiology Services (Routine) Status Reason Specialty Diagnoses / Referred By Referred To Procedures Contact Contact New Request Diagnostic Diagnoses Mastodynia Screening breast examination Lump or mass in breast Edgaraphkimberlyn, Radiology Procedures BI DIAGNOSTIC MAMMOGRAM BILATERAL SANGITA Michael [address] [facility] [address] [place] [address] Radiology Services (Routine) Status Reason Specialty Diagnoses / Referred By Referred To Procedures Contact Contact Authorized Diagnostic Diagnoses Screening breast examination Lump or mass in breast Fernanda Jones, Radiology Procedures BI ULTRASOUND BREAST COMPLETE BILATERAL PA-C [facility] [address] [place] [address] Reason for Visit Reason Comments Well Woman Exam Encounter Details Date Type Department Care Team Description 10/07/2020 Office Visit [facility] Women's Fernanda Jones Well woman exam with routine gynecological exam (Primary Dx); Healthcare- PA-C Screening breast examination; [address] Screening examination for ve nereal disease; 146 [facility] Screening for human immunodeficiency vir us; Drive, [address] Needs flu shot; [place], [place] Screening for v iral disease; [phone] Lump or mass in breast; [phone] Hair loss; [phone] Acne, unspecifi ed acne type; (Fax) Encounter for s creening for cardiovascular disorders ; Mastodynia Allergies No Known Allergiesdocumented as of this [...] Overview: Rule out PTSD ICD10 Diagnosis Term Medical Records Director Utility Panic disorder without agoraphobia 10/09/2006 documented [...] with No / Unsure 11/19/2020 10:06 AM RADIOLOGY SERVICES MANAGER someone who was confirmed or suspected to have Coronavirus / COVID-19? documented as of this encounter Last Filed Vital Signs Vital Sign Reading Time Taken Comments Blood Pressure 107/67 10/07/2020 11:12 AM RADIOLOGY SERVICES MANAGER Pulse 51 10/07/2020 11:12 AM RADIOLOGY SERVICES MANAGER Temperature 36.8 C (98.3 F) 10/07/2020 11:12 AM RADIOLOGY SERVICES MANAGER Respiratory Rate 18 10/07/2020 11:12 AM RADIOLOGY SERVICES MANAGER Oxygen Saturation - - Inhaled Oxygen Concentration - - Weight 76.7 kg (169 lb) 10/07/2020 11:12 AM RADIOLOGY SERVICES MANAGER Height 175.3 cm (5' 9") 10/07/2020 11:12 AM RADIOLOGY SERVICES MANAGER Body Mass Index 24.96 10/07/2020 11:12 AM RADIOLOGY SERVICES MANAGER documented in this encounter Progress Notes [...] N/A 03/29/2016 Surgeon: Dolores Louis MD; Location: [facility] Delivery OR Location COLONOSCOPY [...] file Gets together: Not on file Attends adventism service: Not on file Active member of [...] Feels safe at home Pt states her adventism preference is Jew Social History Substance and Sexual Activity Sexual [...] ANTIGEN, HIV 1/2 AG-AB WITH REFLEX, FLU VACC(), 6+ MONTHS, IM, QUAD (FLUZONE/FLULAVAL/FLUARIX), PAP Smear-Liquid Based, HIGH RISK HPV-THIN PREP, GC & CHLAMYDIA AMPLIFIED ASSAY, GALV ONLY - VAGINAL PATHOGENS BY NUCLEIC ACID TESTING, CBC WITH DIFF, COMP. METABOLIC PANEL (18559), LIPID PANEL (27906)(TOTAL CHOLESTEROL, TRIGLYCERIDES, HDL), THYROID STIMULATING HORMONE, CANCELED: [...] WITH REFLEX Needs flu shot Plan: FLU VACC(), 6+ MONTHS, IM, QUAD (FLUZONE/FLULAVAL/FLUARIX) Screening for viral disease Plan: HEPATITIS B SURFACE ANTIGEN, GALV ONLY - VAGINAL PATHOGENS BY NUCLEIC ACID TESTING Lump or mass in breast Plan: BI ULTRASOUND BREAST COMPLETE BILATERAL Hair loss Plan: CBC WITH DIFF, COMP. METABOLIC PANEL (69083), LIPID PANEL (16457)(TOTAL CHOLESTEROL, TRIGLYCERIDES, HDL), THYROID STIMULATING HORMONE Acne, unspecified acne type Plan: CBC WITH DIFF, COMP. METABOLIC PANEL (96515), LIPID PANEL (95485)(TOTAL CHOLESTEROL, TRIGLYCERIDES, HDL), THYROID STIMULATING HORMONE Encounter for screening for cardiovascular disorders Plan: LIPID PANEL (34234)(TOTAL CHOLESTEROL, TRIGLYCERIDES, HDL) Return to clinic in 1 yr WWE Discussed treatment options. Reviewed patient instructions and provided printed copy. This visit did not involve counseling and coordination that comprised more than 50% of the visit time. Fernanda Jones PA-C 10/07/2020 2:02 PM OLOGY SERVICES MANAGER documented in this encounter Miscellaneous Notes Addendum Note - Fernanda Jones PA-C - 10/07/2020 1:30 PM RADIOLOGY SERVICES MANAGER Addended by: FERNANDA JONES on: 11/19/2020 01:09 PM Modules accepted: Orders OLOGY SERVICES MANAGER documented in this encounter Plan of Treatment Date Type Specialty Care Team Description 10/07/2021 Office Visit Obstetrics & Gynecology Fernanda Jones PA-C [address] [place] [address] [phone] Name Type Priority Associated Diagnoses Date/Ti me ADC OR DANIA ONLY - LAB Routine Well woman exam wit h 11/19/2020 10:59 AM RPR routine gynecolo gical exam RADIOLOGY SERVICES MANAGER Screening examination for venereal disease HCV ANTIBODY LAB Routine Well woman exam with 10:59 AM routine gynecolo gical exam RADIOLOGY SERVICES MANAGER Screening examination for venereal disease HEPATITIS B SURFACE LAB Routine Well woman exam with 11/19/2020 10:59 AM ANTIGEN routine gynecolo gical exam RADIOLOGY SERVICES MANAGER Screening examination for venereal disease Screening for viral disease Name Type Priority Associated Diagnoses Order S chedule ADC OR DANIA ONLY - LAB Routine Well woman exam wit h Expected: RPR routine gynecological 2019, Expires: exam 01/07/2021 Screening examination for venereal disease HCV ANTIBODY LAB Routine Well woman exam with Expecte d: routine gynecological 2019, Expires: exam 01/07/2021 Screening examination for venereal disease HEPATITIS B SURFACE LAB Routine Well woman exam with Expected: ANTIGEN routine gynecological 2019, Expires: exam 01/07/2021 Screening examination for venereal disease Screening for viral disease BI ULTRASOUND BREAST IMAGING Routine Screening breast Exp ected: COMPLETE BILATERAL examination 10/07/2020, Expires: Lump or mass in breast 12/07 BI DIAGNOSTIC MAMMOGRAM IMAGING Routine Mastodyn ia Expected: BILATERAL Screening breast 11/19/2020, Expires: examination 01/19/2022 Lump or mass in breast Health Maintenance Due Date Last Done Comments PNEUMOCOCCAL 0-64 YEARS COMBINED 1991 SERIES (1 of 1 - PPSV23) Depression Screening 01/24/2021 01/25/2020 PAP SMEAR 10/07/2023 10/07/2020, 09/03/2015, 01/26/2006 DTaP,Tdap,and Td Vaccines (2 - Td) 01/20/2026 01/21/2016 INFLUENZA VACCINE Completed 10/07/2020, 10/04/2019, 08/24/2018, Additional history exists documented as of this encounter Procedures Procedure Name Priority Date/Time Associated Diagnosis Comme nts GALV ONLY - Routine 10/07/2020 11:53 Well woman exam with Res ults for this VAGINAL PATHOGENS AM RADIOLOGY SERVICES MANAGER routine gynecological p rocedure are in BY NUCLEIC ACID exam the results TESTING Screening examination sectio n. for venereal dis ease Screening for viral disease PAP SMEAR-LIQUID Routine 10/07/2020 11:52 Well woman exam with BASED-CP AM RADIOLOGY SERVICES MANAGER routine gynecological exam HIGH RISK HPV-THIN Routine 10/07/2020 11:52 Well woman exam wi th Results for this PREP AM RADIOLOGY SERVICES MANAGER routine gynecological proced ure are in exam the results section. LAB ONLY PAP Routine 10/07/2020 11:52 Well woman exam with Res ults for this SMEAR-LIQUID BASED AM RADIOLOGY SERVICES MANAGER routine gynecological procedure are in exam the results section. GC & CHLAMYDIA Routine 10/07/2020 11:52 Well woman exam with R esults for this AMPLIFIED ASSAY AM RADIOLOGY SERVICES MANAGER routine gynecological pro cedure are in exam the results Screening examination sectio n. for venereal disease FLU VACC Routine 10/07/2020 11:23 Well woman exam with ([id number]), 6+ AM RADIOLOGY SERVICES MANAGER routine gynecological MONTHS, IM, QUAD exam Needs flu shot documented in this encounter Results THYROID STIMULATING HORMONE (11/19/2020 10:59 AM RADIOLOGY SERVICES MANAGER) Pathologist Sig nature TSH 1.98 0.45 - 4.70 mIU/L [facility] Specimen Blood Performing Organization Address City/[facility]/Zipcode Phone Number [facility] CLIA: [id number] [place] [address] LABORATORY [address] [facility] LIPID PANEL (57656)(TOTAL CHOLESTEROL, TRIGLYCERIDES, HDL) (11/19/2020 10:59 AM RADIOLOGY SERVICES MANAGER) Pathologist Sig nature CHOL 161 120 - 200 mg/dL [facility] HDL 55 >50 mg/dL [facility] HDLC RATIO 2.9 <=4.5 [facility] TRIG 81 30 - 170 mg/dL [facility] LDL CHOL 90 <=160 mg/dL [facility] VLDL 16 5 - 60 mg/dL [facility] Specimen Blood Performing Organization Address [facility] Phone Number [facility] CLIA: [id number] [place] [address] LABORATORY [address] [facility] COMP. METABOLIC PANEL (86966) (11/19/2020 10:59 AM RADIOLOGY SERVICES MANAGER) Pathologist Sig nature NA 139 135 - 145 mmol/L [facility] K 4.3 3.5 - 5.0 mmol/L [facility] CL 105 98 - 108 mmol/L [facility] CO2 TOTAL 27 23 - 31 mmol/L [facility] AGAP 7 2 - 16 [facility] BUN 8 7 - 23 mg/dL [facility] GLUCOSE 83 70 - 110 mg/dL [facility] CREATININE 0.61 0.50 - 1.04 [facility] mg/ HOSPITAL LABORATORY TOTAL BILI 0.6 0.1 - 1.1 mg/dL [facility] CALCIUM 9.1 8.6 - 10.6 mg/dL [facility] T PROTEIN 7.1 6.3 - 8.2 g/dL [facility] ALBUMIN 4.2 3.5 - 5.0 g/dL [facility]ORY ALK PHOS 43 34 - 122 U/L [facility] ALTv 9 5 - 35 U/L [facility] AST(SGOT) 25 13 - 40 U/L [facility] eGFR Calculation 111.6 mL/min/1.73m2 [facility] (Non-) [facility] Y eGFR Calculation 135.3 mL/min/1.73m2 [facility] () [facility] Specimen Blood Narrative Performed At Association of Glomerular Filtration Rate (GFR) [facility] and Staging of Kidney Disease* + + +- + | GFR (mL/min/1.73 m2) | With Kidney Damage | Without Kidney Damage + + +- + | >90 | Stage one | Normal + + +- + | 60-89 | Stage two | Decreased GFR + + +- + | 30-59 | Stage three | Stage three + + +- + | 15-29 | Stage four | Stage four + + +- + | <15 (or dialysis) | Stage five | Stage five + + +- + *Each stage assumes the associated GFR level has been in effect for at least three months. Stages 1 to 5, with or without kidney disease, indicate chronic kidney disease. Notes: Determination of stages one and two (with eGFR >59mL/min/1.73 m2) requires estimation of kidney damage for at least three months as defined by structural or functional abnormalities of the kidney, manifested by either: Pathological abnormalities or Markers of kidney damage (including abnormalities in the composition of the blood or urine or abnormalities in imaging tests). Performing Organization Address City/State/Zipcode Phone Number [facility] CLIA: [id number] [place] [address] CBC WITH DIFF (11/19/2020 10:59 AM RADIOLOGY SERVICES MANAGER) Pathologist Sig nature WBC 5.10 4.30 - 11.10 [facility] 10*3/L [facility] RBC 4.45 3.93 - 5.25 [facility] 10*6/L [facility] HGB 12.7 11.6 - 15.0 [facility] g/dL [facility] HCT 38.2 35.7 - 45.2 % [facility]ORY MCV 85.8 80.6 - 95.5 fL [facility]ORY MCH 28.5 25.9 - 32.8 pg [facility] MCHC 33.2 31.6 - 35.1 [facility] g/dL [facility] RDW-SD 40.5 39.0 - 49.9 fL [facility]ORY RDW-CV 13.0 12.0 - 15.5 % [facility]OR[facility]ORY PLT 339 166 - 358 [facility] 10*3/L HOSPITAL LABORATORY MPV 9.8 9.5 - 12.9 fL [facility] NRBC/100 WBC 0.0 0.0 - 10.0 /100 [facility] WBCs [facility] NRBC x10^3 <0.01 10*3/L [facility]ORY GRAN MAT (NEUT) % 69.8 % [facility] IMM GRAN % 0.20 % [facility] LYMPH % 20.8 % [facility] LAB[facility] MONO % 4.7 % [facility] EOS % 3.9 % [facility] LABOR[facility]ORY BASO % 0.6 % [facility]ORY GRAN MAT x10^3(ANC) 3.56 1.88 - 7.09 [facility] 10*3/uL [facility] IMM GRAN x10^3 <0.03 0.00 - 0.06 [facility] 10*3/uL [facility] LYMPH x10^3 1.06 (L) 1.32 - 3.29 [facility] 10*3/uL [facility] MONO x10^3 0.24 (L) 0.33 - 0.92 [facility] 10*3/uL [facility] EOS x10^3 0.20 0.03 - 0.39 [facility] 10*3/uL [facility] BASO x10^3 0.03 0.01 - 0.07 [facility] 10*3/uL [facility] Specimen Blood Performing Organization Address City/State/Zipcode Phone Number [facility] CLIA: [id number] [place] [address] HIV 1/2 AG-AB WITH REFLEX (11/19/2020 10:59 AM RADIOLOGY SERVICES MANAGER) Pathologist Sig nature HIV 1/2 Ag-Ab with Negative Negative [facility] HOSPITAL LABORATORY HIV Semi-quantitative 0.16 [facility] Specimen Blood Narrative Performed At Non-reactive for HIV-1 antigen and HIV-1/HIV-2 [facility] LAB[facility] antibodies. No laboratory evidence of HIV infection. Repeat in 2-4 weeks if acute HIV infection is suspected. Performing Organization Address City/State/Zipcode Phone Number [facility] CLIA: [id number] [place] [address] [place] [address] Drive DO ONLY - VAGINAL PATHOGENS BY NUCLEIC ACID TESTING (10/07/2020 11:53 AM RADIOLOGY SERVICES MANAGER) Pathologist Sig nature Trichomonas vaginalis Negative Negative [facility] Susy species Negative Negative [facility] Susy glabrata Negative Negative [facility] Bacterial Vaginosis Positive (A) Negative [facility] SERVICES Specimen Fluid - VAGINA Narrative Performed At [facility] results are dependent on adequate specimen [facility] SERVICES collection. This test detects Trichomonas vaginalis, Susy glabr jimy, and other Susy species (C. albicans, C. parapsilosi s, C. dubliniensis, and C. tropicalis). The assay does not differentiate among organisms in the [place] dida species group. The Bacterial Vaginosis result is determined based on relative amounts of the following target organisms: Lactobacillus (L. gasseri, L. crispatus, and L. moore ii), Gardnerella vaginalis, and Atopobium vaginae. A sing le qualitative result is generated. This assay does not report individual organisms. A positive result obtained from a patient after therap eutic treatment cannot be interpreted as indicating the pres ence of viable organisms. For patients on whom a false po sitive result may have adverse psychosocial impact, retesting is advised. Indeterminate: Unable to generate a valid test result on this specimen. Please submit a new specimen for repe at testing if clinically indicated. This testing has not been validated for medico-legal purposes (sexual abuse in [place]rica-pubertal and pre-pubert al children, sexual assault, and legal case s). Results from this testing should be interpreted in conjunction with other laboratory and clinical data available to the clinician. Performing Organization Address City/State/Zipcode Phone Number [facility] CLIA: [id number] [place] [address] [place] [address] LAB ONLY PAP SMEAR-LIQUID BASED (10/07/2020 11:52 AM RADIOLOGY SERVICES MANAGER) Case Report Gynecologic Cytology Case: [id number] [facility] Authorizing Provider: Fernanda Truong PA-C Collected: 10/07/2020 1152 SERVICES Ordering Location: [facility] Women[facility] Received: 10/08/2020 0145 [facility] First Screen: Fredi Kala C Specimen: Liquid Based Pap Preparation, CERVIX Clinical Information History of +HPV >10 [facility] RY years ago SERVICES Specimen Adequacy Satisfactory for [facility] Evaluation(Endocervic SERVICES al/Transformation Zone Component Present) Interpretation Negative for [facility] Electronic ally intraepithelial SERVICES signed by Miguel wers, lesion or malignancy Kala Mulligan on 10/21/2020 at 2:28 PM Comments [facility] SERVICES Performed and verified by Cy totechnologist at [facility], [address] [place] [address], [place] [address] LMP LMP (specify date in [facility] Comments)Comment: SERVICES 09/27/2020 Educational Note Cervical cytology [facility] (Pap Test) is a SERVICES screening test primarily for squamous cancers and precursors. The test has an inherent, but low, probability of false-negative and false-positive results. Regular sampling and follow-up of unexplained clinical signs and symptoms are recommended to minimize the effect of false negative results. Your patient should be reminded to consult you immediately if she experiences any unexplained clinical signs and symptoms, regardless of any Pap Test result. Embedded Images [facility] SERVICES Specimen Swab - CERVIX Performing Organization Address City/State/Zipcode Phone Number [facility] CLIA: [id number] [place] [address] [place] [address] GC & CHLAMYDIA AMPLIFIED ASSAY (10/07/2020 11:52 AM RADIOLOGY SERVICES MANAGER) Pathologist Sig nature C. trachomatis Nucleic Negative Negative [facility] Acid SERVICES N. gonorrhoeae Nucleic Negative Negative [facility] Acid SERVICES Specimen Swab - CERVIX Narrative Performed At [facility] results are dependent on adequate specimen [facility] SERVICES collection. A positive result obtained from a patient after therap eutic treatment cannot be interpreted as indicating the pres ence of viable organisms. For patients on whom a false po sitive result may have adverse psychosocial impact, retesting is advised. Indeterminate: Unable to generate a valid test result on this specimen. Please submit a new specimen for repe at testing if clinically indicated. Chlamydia trachomatis/Neisseria gonorrhoeae nucleic ac id amplification testing (NAAT) has not been validated fo r medico-legal specimens (sexual abuse in [place]-pubertal and pre-pubertal children, sexual assault, and legal cases ). Culture for Chlamydia trachomatis and/or Neisseria gonorrhoeae from clinically appropriate sites is the m ethod of choice in these cases. Results from this testing should be interpreted in conjunction with other laboratory and clinical data available to the clinician. Performing Organization Address City/State/Zipcode Phone Number [facility] CLIA: [id number] [place] [address] [place] [address] HIGH RISK HPV-THIN PREP (10/07/2020 11:52 AM RADIOLOGY SERVICES MANAGER) Pathologist Sig nature High Risk HPV Negative Negative [facility] SERVICES Specimen Swab - CERVIX Narrative Performed At A positive result indicates the presence of viral mess enger [facility] SERVICES RNA (mRNA) from 14 high-risk types of human papillomav irus (HPV Genotype 16, 18, 31, 33, 35, 39, 45, 51, 52, 56, 58, 59, 66, 68). False-positive results may occur with t his test when mRNA of low-risk HPV genotypes 26, 67, 70, a nd 82 is present. A negative result of this assay does not exclude the possibility of cytologic abnormalities or of future or underlying CIN2-3, or cancer. Sensitivity of this te st may be affected by specimen collection methods, stage of infection, and the presence of interfering substances. Results should be interpreted in conjunction with ot her available laboratory and clinical data. Performing Organization Address City/[facility] Phone Number [facility] CLIA: [id number] [place] [address] [place] [address] PAP Smear-Liquid Based (10/07/2020 11:52 AM RADIOLOGY SERVICES MANAGER) Specimen Swab - CERVIX Performing Organization Address City/State/Zipcode Phone Number [facility] CLIA: [id number] [place] [address] [place] [address] documented in this encounter Visit Diagnoses Diagnosis Well [...] for other and unspecified card iovascular conditions Mastodynia Mastodynia documented in this encounter Insurance Payer Benefit Plan / Subscriber ID Effective Dates Phone Addre ss Type Group MEDICARE MEDICARE PART [id number] 2009-Aditi [phone] Medicare A & B t 2 [id number] [place] [address] [employer] MEDICAID OF [id number] 2014-Bry [phone] Medicaid [place] 0 [id number] [place] [address] documented as of this encounter
--- OUTSIDE RECORDS SUMMARY | 2020-11-26 15:54 | XMS REPORT | Summary of Care ---
:1985 Author Organization [facility] Address [address] [place] [id number] Care Team Providers Name Role Phone Yoel Phillips Primary Care Provider Reason for Referral Radiology Services (Routine) Status Reason Specialty Diagnoses / Referred By Referred To Procedures Contact Contact Authorized Diagnostic Diagnoses Screening breast examination Lump or mass in breast Fernanda Jones, Radiology Procedures BI ULTRASOUND BREAST COMPLETE BILATERAL PA-[facility] [address] [place] [address] Reason for Visit Auth/Cert Status Reason Specialty Diagnoses / Procedures Referred By C ontact Referred To Contact Phlebotomy Procedures Adc Pob Lab Draw LIPID PANEL Professional Office ([id number])([facility] CHOLESTEROL, [address], HDL) , [address] [place] [address] Phone: Fax: Encounter Details Date Type Department Care Team Description 11/19/2020 Hospital Encounter [facility] Fernanda Jones Cance led (SCHEDULE [facility] PA-C ORDER ERROR) [facility] [address] [facility] [address] [place] [phone] Allergies No Known Allergiesdocumented as of this encounter (statuses as of 11/20/2020) Medications Medication Sig Dispensed Refills Start Date End Date Status metroNIDAZOLE 500 mg Take 1 tablet by 14 tablet 0 10/08/2020 Active tabletIndications: BV mouth every 12 (bacterial vaginosis) (twelve) hours. documented as of this encounter (statuses as of 11/20/2020) Active Problems Problem Noted Date History of [...] Overview: Rule out PTSD ICD10 Diagnosis Term Wedding Planner Utility Panic disorder without agoraphobia 10/09/2006 documented as of this encounter (statuses as of 11/20/2020) Resolved Problems Problem Noted Date Resolved Date [...] as of this encounter (statuses as of 11/20/2020) Immunizations Name Administration Dates Next Due Influenza [...] with No / Unsure 11/19/2020 10:06 AM ANDROID PROGRAMMER someone who was confirmed or suspected to have Coronavirus / COVID-19? documented as of this encounter Last Filed Vital Signs Not on filedocumented in this encounter Plan of Treatment Date Type Specialty Care Team Description 10/07/2021 Office Visit Obstetrics & Gynecology Fernanda Jones PA-C [address] [place], [place] [id number] [phone] Name Type Priority Associated Diagnoses Order S chedule BI ULTRASOUND BREAST IMAGING Routine Screening breast ONC E for 1 Occurrences COMPLETE BILATERAL examination starting 11/19/2020 Lump or mass in breast until 11/19/2020 Health Maintenance Due Date Last Done Comments PNEUMOCOCCAL 0-64 YEARS COMBINED 1991 SERIES (1 of 1 - PPSV23) Depression Screening 01/24/2021 01/25/2020 PAP SMEAR 10/07/2023 10/07/2020, 09/03/2015, 01/26/2006 DTaP,Tdap,and Td Vaccines (2 - Td) 01/20/2026 01/21/2016 INFLUENZA VACCINE Completed 10/07/2020, 10/04/2019, 08/24/2018, Additional history exists documented as of this encounter Results Not on filedocumented in this encounter Visit Diagnoses Diagnosis Screening breast examination Other screening breast examination Lump or mass in breast documented in this encounter Insurance Payer Benefit Plan / Subscriber ID Effective Dates Phone Addre ss Type Group MEDICARE MEDICARE PART [id number] 2009-Aditi [phone] Medicare A & B t 2 [id number] K[place] RONQU[place]O [phone] [facility] MEDICAID OF [id number] 2014-Bry [phone] [address] Medicaid [facility] [id number] [place] [address] documented as of this encounter
[2020-11-26] MEDS ORDERED: KETOROLAC 30 MG/ML INJ ONE (17:43)
[2020-11-26] MEDS ORDERED: dexAMETHasone 10 MG/ML VIAL ONE (17:43)
[2020-11-26] MEDS ORDERED: LIDOCAINE 4% PATCH ONE (17:43)
[2020-11-26] MEDS ORDERED: FENTANYL CITR 100 MCG/2 ML ONE (18:49)
[2020-11-26] MEDS ORDERED: HYDROCODONE/APAP 10/325 TAB ONE (18:49)
--- NOTE | 2020-11-26 19:08 | ER ---
Nurse's Notes [facility] Name: Miranda Pacheco Age: 35 yrs Sex: Female : 1985 Arrival Date: 11/26/2020 Time: 15:53 Bed 24 Private MD: Diagnosis: Low back pain Presentation: 11/26 16:30 Chief complaint: Patient states: my back hurts, about 11 am today my lower middle back tw2 hurts, i was closing the refrigerator door. Coronavirus screen: At this time, the client does not indicate any symptoms associated with coronavirus-19. Ebola Screen: Patient denies travel to an Ebola-affected area in the 21 days before illness onset. Initial Sepsis Screen: Does the patient meet any 2 criteria? No. Patient's initial sepsis screen is negative. Does the patient have a suspected source of infection? No. Patient's initial sepsis screen is negative. Risk Assessment: Do you want to hurt yourself or someone else? Patient reports no desire to harm self or others. Onset of symptoms was November 26, 2020. 16:30 Method Of Arrival: Wheelchair tw2 16:30 Acuity: LUCIAN 4 tw2 Triage Assessment: 16:31 General: Appears in no apparent distress. uncomfortable, Behavior is calm, cooperative, tw2 appropriate for age. Pain: Complains of pain in back. Musculoskeletal: Circulation, motion, and sensation intact. 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 - Social history:: Smoking status: . Screenin:50 Abuse screen: Denies threats or abuse. Denies injuries from another. Nutritional zb screening: No deficits noted. Tuberculosis screening: No symptoms or risk factors identified. Fall Risk None identified. Assessment: 16:30 General: Appears in no apparent distress. uncomfortable, Behavior is calm, cooperative, zb appropriate for age. Pain: Complains of pain in back Pain radiates to bilateral legs Pain currently is 10 out of 10 on a pain scale. Quality of pain is described as sharp, throbbing, Pain began today at 1100 Is continuous. Neuro: Level of Consciousness is awake, alert, obeys commands, Oriented to person, place, time, situation. Cardiovascular: Capillary refill < 3 seconds in bilateral fingers Patient's skin is warm and dry. Pulses are all present. Respiratory: Airway is patent Respiratory effort is even, unlabored, Respiratory pattern is regular, symmetrical. GI: Abdomen is flat, non-distended, Bowel sounds present X 4 quads. : No signs and/or symptoms were reported regarding the genitourinary system. EENT: No signs and/or symptoms were reported regarding the EENT system. Derm: Skin is intact, is healthy with good turgor, Skin is dry, Skin is normal, Skin temperature is warm. Musculoskeletal: Circulation, motion, and sensation intact. Capillary refill < 3 seconds, in bilateral fingers. Range of motion: intact in all extremities. 17:30 Reassessment: Patient appears in no apparent distress at this time. Patient and/or zb family updated on plan of care and expected duration. Pain level reassessed. Patient is alert, oriented x 3, equal unlabored respirations, skin warm/dry/pink. pt unrelieved notified ECP. 18:30 Reassessment: Patient appears in no apparent distress at this time. Patient and/or zb family updated on plan of care and expected duration. Pain level reassessed. Patient is alert, oriented x 3, equal unlabored respirations, skin warm/dry/pink. pain medication given at this time. lying in bed. Vital Signs: 16:30 BP 120 / 57; Pulse 66; Resp 18; Temp 98.4(TE); Pulse Ox 99% on R/A; Weight 74.84 kg tw2 (R); Height 5 ft. 9 in. (175.26 cm); Pain 10/10; 17:30 BP 116 / 53; Pulse 57; Resp 18; Pulse Ox 100% on R/A; zb 18:30 BP 110 / 62; Pulse 59; Resp 16; Pulse Ox 100% on R/A; zb 16:30 Body Mass Index 24.37 (74.84 kg, 175.26 cm) tw2 ED Course: 15:53 Patient arrived in ED. ag3 16:31 Triage completed. tw2 16:31 Arm band placed on. tw2 16:50 Patient has correct armband on for positive identification. Bed in low position. Call zb light in reach. Side rails up X 1. Pulse ox on. NIBP on. Door closed. Noise minimized. Warm blanket given. 17:11 Roberto Martini NP is PHCP. pm1 17:11 Alfredo Keyes MD is Attending Physician. pm1 17:25 Christiana Rene RN is Primary Nurse. zb 18:51 No provider procedures requiring assistance completed. zb 19:29 Patient did not have IV access during this emergency room visit. zb Administered Medications: 17:30 Drug: Ketorolac 60 mg Route: IM; Site: left gluteus; zb 17:30 Drug: Decadron 10 mg Route: IM; Site: left gluteus; zb 17:30 Drug: Lidoderm 5 % (700 mg/patch) 1 patches Route: Topical; Site: affected area; zb 18:41 Drug: fentaNYL (PF) 50 mcg {Note: RASS0.} Route: IM; Site: right deltoid; zb 18:43 Drug: [place] 10 mg-325 mg 1 tabs {Note: RASS 0.} Route: PO; zb Outcome: 19:07 Discharge ordered by MD. pm1 19:29 Discharged to home via wheelchair. zb 19:29 Condition: stable 19:29 Discharge instructions given to patient, Instructed on discharge instructions, follow up and referral plans. medication usage, Demonstrated understanding of instructions, follow-up care, medications, Prescriptions given X 3. 19:29 Patient left the ED. zb Signatures: Roberto Martini NP FORENSIC DOCUMENT EXAMINER pm1 Irma Berger RN RN tw2 Helena Winter ag3 Christiana Rene RN RN zb Corrections: (The following items were deleted from the chart) 18:43 18:41 fentaNYL (PF) 50 mcg IM in right deltoid zb zb 18:44 18:43 [place] 10 mg-325 mg 1 tabs PO zb zb
--- NOTE | 2020-11-26 19:08 | EDPHYS ---
Physician Documentation [facility] Name: Miranda Pacheco Age: 35 yrs Sex: Female : 1985 Arrival Date: 11/26/2020 Time: 15:53 Bed 24 Private MD: ED Physician Alfredo Keyes HPI: 11/26 17:42 This 35 yrs old Female presents to ER via Wheelchair with complaints of Back pm1 Pain. 17:42 The patient presents with pain that is acute. The symptoms are located in the low back. pm1 Onset: The symptoms/episode began/occurred this morning. The pain does not radiate. Associated signs and symptoms: Pertinent negatives: abdominal pain, dysuria, fever, headache, incontinence, nausea, numbness, tingling, vomiting. The problem was sustained cooking breakfast. Modifying factors: The patient symptoms are alleviated by remaining still, specific position, the patient symptoms are aggravated by movement. Severity of symptoms: in the emergency department the symptoms are unchanged. The patient has experienced similar episodes in the past, multiple times, and the symptoms today are exactly the same, Patient with a bad back due to scoliosis. Goes to chiropractor for adjustments typically but he is currently out with covid. 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 - Social history:: Smoking status: . ROS: 17:48 Constitutional: Negative for fever, chills, and weight loss. pm1 20:54 Cardiovascular: Negative for chest pain, palpitations, and edema, Respiratory: Negative pm1 for shortness of breath, cough, wheezing, and pleuritic chest pain, Abdomen/GI: Negative for abdominal pain, nausea, vomiting, diarrhea, and constipation. 20:54 : Negative for injury, bleeding, discharge, and swelling, MS/Extremity: Negative for injury and deformity, Skin: Negative for injury, rash, and discoloration, Neuro: Negative for headache, weakness, numbness, tingling, and seizure. 20:54 Back: Positive for of the low back area, pain. Exam: 20:54 Constitutional: This is a well developed, well nourished patient who is awake, alert, pm1 and in no acute distress. Head/Face: Normocephalic, atraumatic. 20:54 Neck: Trachea midline, no thyromegaly or masses palpated, and no cervical lymphadenopathy. Supple, full range of motion without nuchal rigidity, or vertebral point tenderness. No Meningismus. 20:54 Skin: Warm, dry with normal turgor. Normal color with no rashes, no lesions, and no evidence of cellulitis. MS/ Extremity: Pulses equal, no cyanosis. Neurovascular intact. Full, normal range of motion. 20:54 Cardiovascular: Exam negative for acute changes, Rate: normal, Rhythm: regular, Pulses: no pulse deficits are appreciated. 20:54 Respiratory: Exam negative for acute changes, respiratory distress, shortness of breath. 20:54 Back: scoliosis muscle spasm, is appreciated in the left low back and right low back. 20:54 Neuro: Exam negative for acute changes, Orientation: is normal, Mentation: is normal, Motor: is normal, moves all fours, Sensation: is normal, no obvious gross deficits. Vital Signs: 16:30 BP 120 / 57; Pulse 66; Resp 18; Temp 98.4(TE); Pulse Ox 99% on R/A; Weight 74.84 kg tw2 (R); Height 5 ft. 9 in. (175.26 cm); Pain 10/10; 17:30 BP 116 / 53; Pulse 57; Resp 18; Pulse Ox 100% on R/A; zb 18:30 BP 110 / 62; Pulse 59; Resp 16; Pulse Ox 100% on R/A; zb 16:30 Body Mass Index 24.37 (74.84 kg, 175.26 cm) tw2 MDM: 17:19 Patient medically screened. pm1 17:42 Data reviewed: vital signs. pm1 19:06 Counseling: I had a detailed discussion with the patient and/or guardian regarding: the pm1 historical points, exam findings, and any diagnostic results supporting the discharge/admit diagnosis, the need for outpatient follow up, to return to the emergency department if symptoms worsen or persist or if there are any questions or concerns that arise at home. Administered Medications: 17:30 Drug: Ketorolac 60 mg Route: IM; Site: left gluteus; zb 17:30 Drug: Decadron 10 mg Route: IM; Site: left gluteus; zb 17:30 Drug: Lidoderm 5 % (700 mg/patch) 1 patches Route: Topical; Site: affected area; zb 18:41 Drug: fentaNYL (PF) 50 mcg {Note: RASS0.} Route: IM; Site: right deltoid; zb 18:43 Drug: [place] 10 mg-325 mg 1 tabs {Note: RASS 0.} Route: PO; zb Disposition: 11/27 06:54 Co-signature as Attending Physician, Alfredo Keyes MD I agree with the assessment and ambika plan of care. Disposition: 11/26/20 19:07 Discharged to Home. Impression: Low back pain. - Condition is Stable. - Discharge Instructions: Back Pain, Adult, Back Injury Prevention, [id number]. - Prescriptions for Lidoderm 5 % Topical adhesive patch,medicated - apply 1 patch by TRANSDERMAL route once daily As needed; 30 Transdermal Patch. Tylenol- Codeine #3 300-30 mg Oral Tablet - take 2 tablets by ORAL route every 6 hours As needed; 20 tablet. Cyclobenzaprine 10 mg Oral Tablet - take 1 tablet by ORAL route every 8 hours As needed; 30 tablet. - Medication Reconciliation Form, Thank You Letter, Antibiotic Education, Prescription Opioid Use form. - Follow up: Emergency Department; When: As needed; Reason: Worsening of condition. Follow up: Private Physician; When: 2 - 3 days; Reason: Recheck today's complaints, Continuance of care, Re-evaluation by your physician. - Problem is new. - Symptoms have improved. Signatures: Alfredo Keyes MD MD cha Marinas, Patrick, NP DATA REPORTING ANALYST pm1 Irma Berger RN RN tw2 Christiana Rene RN RN zb Corrections: (The following items were deleted from the chart) 11/26 19:29 19:07 11/26/2020 19:07 Discharged to Home. Impression: Low back pain. Condition is zb Stable. Forms are Medication Reconciliation Form, Thank You Letter, Antibiotic Education, Prescription Opioid Use. Follow up: Emergency Department; When: As needed; Reason: Worsening of condition. Follow up: Private Physician; When: 2 - 3 days; Reason: Recheck today's complaints, Continuance of care, Re-evaluation by your physician. Problem is new. Symptoms have improved. pm1
[2020-11-26 19:46] VITALS: TEMP 98.4
[2020-11-26 19:47] VITALS: O2SAT 100
[2020-11-26 19:48] VITALS: BP 110/62
[2020-12-10] MEDS ORDERED: MEPERIDINE HCL 50 MG/ML ONE (23:54)
[2020-12-12] MEDS ORDERED: LIDOCAINE VISCOUS 2% SOLN 15 ML UDC ONE (05:44)
== END 2020-11-26 19:29 | disposition home or self-care (01) ==
LOC: ER 15:51
DX: M54.5 Low back pain (principal)
CPT/HCPCS: 96372; 99283; J3010; J1100

== ENCOUNTER 2022-02-02 23:00 | Emergency (ER) | payer OTHER ==
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
[2022-02-03] MEDS ORDERED: MORPHINE 4 MG/ML SYR ONE (00:53)
[2022-02-03] MEDS ORDERED: METHOCARBAMOL 1,000 MG/10 ML VIAL IV ONE (00:53)
[2022-02-03] MEDS ORDERED: dexAMETHasone 10 MG/ML VIAL ONE (00:53)
[2022-02-03] MEDS ORDERED: NA CHLORIDE 0.9% 100 ML IV ONE (00:54)
[2022-02-03] MEDS ORDERED: ONDANSETRON 4 MG/2 ML VIAL ONE (00:54)
[2022-02-03] MEDS ORDERED: KETOROLAC 30 MG/ML INJ ONE (00:54)
--- NOTE | 2022-02-03 02:50 | EDPHYS ---
Physician Documentation [facility] Name: Miranda Pacheco Age: 36 yrs Sex: Female : 1985 Arrival Date: 02/02/2022 Time: 23:05 Bed 13 Private MD: ED Physician Luis Alberto Becerra HPI: 02/03 00:47 This 36 yrs old Female presents to ER via Wheelchair with complaints of Back jr8 Injury, Back Pain. 00:47 The patient presents with pain that is acute. The symptoms are located in the low back. jr8 Onset: The symptoms/episode began/occurred acutely, today. The pain does not radiate. Associated signs and symptoms: The patient has no apparent associated signs or symptoms. The problem was sustained from unknown cause. Modifying factors: The patient symptoms are alleviated by nothing, the patient symptoms are aggravated by any movement. Severity of symptoms: At their worst the symptoms were moderate, in the emergency department the symptoms are unchanged. The patient has experienced similar episodes in the past, a few times. The patient has not recently seen a physician. Patient stated that she has history of scoliosis and every so often throws her back out. Stated that she started with pain the other day and then had immediate pain today when preparing to grill. 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 - Social history:: Smoking status: Patient denies any tobacco usage or history of. ROS: 02/03 00:53 Eyes: Negative for injury, pain, redness, and discharge, ENT: Negative for injury, jr8 pain, and discharge, Neck: Negative for injury, pain, and swelling, Cardiovascular: Negative for chest pain, palpitations, and edema, Respiratory: Negative for shortness of breath, cough, wheezing, and pleuritic chest pain, Abdomen/GI: Negative for abdominal pain, nausea, vomiting, diarrhea, and constipation, MS/Extremity: Negative for injury and deformity, Skin: Negative for injury, rash, and discoloration, Neuro: Negative for headache, weakness, numbness, tingling, and seizure. Back: Positive for decreased range of motion, pain at rest, pain with movement, Negative for radiated pain. Exam: 00:53 Constitutional: This is a well developed, well nourished patient who is awake, alert, jr8 and in no acute distress. Cardiovascular: Regular rate and rhythm with a normal S1 and S2. No gallops, murmurs, or rubs. Normal PMI, no JVD. No pulse deficits. Respiratory: Lungs have equal breath sounds bilaterally, clear to auscultation and percussion. No rales, rhonchi or wheezes noted. No increased work of breathing, no retractions or nasal flaring. Abdomen/GI: Soft, non-tender, with normal bowel sounds. No distension or tympany. No guarding or rebound. No evidence of tenderness throughout. Skin: Warm, dry with normal turgor. Normal color with no rashes, no lesions, and no evidence of cellulitis. MS/ Extremity: Pulses equal, no cyanosis. Neurovascular intact. Full, normal range of motion. Neuro: Awake and alert, GCS 15, oriented to person, place, time, and situation. Cranial nerves II-XII grossly intact. Motor strength 5/5 in all extremities. Sensory grossly intact. 00:53 Back: pain, that is moderate, of the low back area, ROM is painful, normal spinal alignment noted. Vital Signs: 02/02 23:39 BP 101 / 55; Pulse 78; Resp 18 S; Temp 98.8(TE); Pulse Ox 100% on R/A; Weight 92.99 kg as6 (R); Height 5 ft. 9 in. (175.26 cm) (R); Pain 08/31; 02/03 01:40 BP 118 / 72; Pulse 70; Resp 16 S; Pulse Ox 100% on R/A; lg3 03:11 BP 116 / 68; Pulse 72; Resp 17 S; Pulse Ox 100% on R/A; lg3 02/02 23:39 Body Mass Index 30.27 (92.99 kg, 175.26 cm) as6 MDM: 00:25 Patient medically screened. jr8 02:48 Data reviewed: vital signs, nurses notes, and as a result, I will discharge patient. jr8 Data interpreted: Pulse oximetry: on room air is 100 %. Interpretation: normal. Counseling: I had a detailed discussion with the patient and/or guardian regarding: the historical points, exam findings, and any diagnostic results supporting the discharge/admit diagnosis, the need for outpatient follow up, a family practitioner, to return to the emergency department if symptoms worsen or persist or if there are any questions or concerns that arise at home. Response to treatment: the patient's symptoms have mildly improved after treatment. ED course: Patient able to walk but with pain. No saddle anesthesia or radicular pain. No focal weakness or hyporeflexia. Will d/c home on meds and to continue to rest for next several days. If worse to come back to ED. Patient good with plan at this time . 02/03 00:42 Order name: IV; Complete Time: 01:12 jr8 Administered Medications: 01:11 Drug: Robaxin (methocarbamol) 1 grams Route: IVPB; Rate: 100 ml/hr; Infused Over: 1 lg3 hrs; Site: right hand; 03:13 Follow up: Response: No adverse reaction; IV Status: Completed infusion; IV Intake: lg3 100ml 01:11 Drug: morphine 4 mg Route: IVP; Site: right hand; lg3 01:11 Follow up: Response: No adverse reaction; RASS: Alert and Calm (0) lg3 01:11 Drug: Zofran (Ondansetron) 4 mg Route: IVP; Site: right hand; lg3 01:11 Follow up: Response: No adverse reaction lg3 01:12 Drug: Decadron - Dexamethasone 10 mg Route: IVP; Site: right hand; lg3 01:12 Follow up: Response: No adverse reaction lg3 01:12 Drug: Ketorolac 30 mg Route: IVP; Site: right hand; lg3 01:12 Follow up: Response: No adverse reaction lg3 03:09 Drug: Dilaudid (HYDROmorphone) 0.5 mg Route: IVP; Site: right hand; lg3 03:09 Follow up: Response: No adverse reaction; RASS: Alert and Calm (0) lg3 Disposition: 06:00 Co-signature as Attending Physician, Luis Alberto Becerra MD. 7 Disposition Summary: 02/03/22 02:49 Discharge Ordered Location: Home jr8 Problem: new jr8 Symptoms: have improved jr8 Condition: Stable jr8 Diagnosis - Low back pain jr8 Followup: jr8 - With: Private Physician - When: 2 - 3 days - Reason: Recheck today's complaints, Continuance of care, Re-evaluation by your physician Discharge Instructions: - Discharge Summary Sheet jr8 - Acute Back Pain, Adult jr8 - Musculoskeletal Pain jr8 - Heat Therapy jr8 Forms: - Medication Reconciliation Form jr8 - Thank You Letter jr8 - Antibiotic Education jr8 - Prescription Opioid Use jr8 Prescriptions: - Ibuprofen 800 mg Oral Tablet - take 1 tablet by ORAL route every 12 hours As needed take with food; 20 tablet; jr8 Refills: 0, Product Selection Permitted - Lidoderm 5 % Topical adhesive patch,medicated - apply 2 patch by TRANSDERMAL route once daily; 10 patch; Refills: 0, Product jr8 Selection Permitted - Zanaflex 4 mg Oral Tablet - take 1 tablet by ORAL route every 8 hours As needed; 20 tablet; Refills: 0, jr8 Product Selection Permitted - Medrol (Tad) 4 mg Oral Tablets, Dose Pack - take 1 tablet by ORAL route as directed - follow package instructions; 1 jr8 packet; Refills: 0, Product Selection Permitted Signatures: Richard De La Garza PA PA jr8 Ligia Cisneros RN RN lg3 Luis Alberto Becerra MD MD 7 Nacho Esparza RN RN as6 Corrections: (The following items were deleted from the chart) 00:53 00:47 The problem was sustained when lifting jr8 jr8 00:53 00:47 Patient stated that she has history of scoliosis and every so often throws her jr8 back out. Stated that she started with pain the other day and then picked up object today causing immediate pain . jr8
--- NOTE | 2022-02-03 02:50 | ER ---
Nurse's Notes [facility] Name: Miranda Pacheco Age: 36 yrs Sex: Female : 1985 Arrival Date: 02/02/2022 Time: 23:05 Bed 13 Private MD: Diagnosis: Low back pain Presentation: 02/02 23:39 Chief complaint: Patient states: "I threw my back out. I walked a lot on Wednesday and as6 on Wednesday I was sore. then today I was getting ready to grill and I just felt a shooting pain and fell to the ground. This happens about once a year. I have a bad back". Coronavirus screen: At this time, the client does not indicate any symptoms associated with coronavirus-19. Ebola Screen: No symptoms or risks identified at this time. Initial Sepsis Screen: Does the patient meet any 2 criteria? No. Patient's initial sepsis screen is negative. Does the patient have a suspected source of infection? No. Patient's initial sepsis screen is negative. Risk Assessment: Do you want to hurt yourself or someone else? Patient reports no desire to harm self or others. Onset of symptoms was January 31, 2022. 23:39 Method Of Arrival: Wheelchair as6 23:39 Acuity: LUCIAN 3 as6 Triage Assessment: 23:48 General: Appears uncomfortable, Behavior is cooperative, quiet. Pain: Complains of pain as6 in back. PHD INTERNSHIP: 23:48 LMP 02/01/2022 as6 Historical: - Allergies: 23:44 No Known Allergies; as6 - Home Meds: 23:44 Prozac Oral 2 times per day [Active]; lithium carbonate 300 mg oral tab 1 tab 2 times as6 per day [Active]; Lamictal Oral once daily [Active]; Omeprazole Oral once daily [Active]; - PMHx: 23:44 gerd; Depressive disorder; Anxiety; as6 - PSHx: 23:44 lap band; section; hernia; as6 - Immunization history:: Client reports having NOT received the Covid vaccine. - Social history:: Smoking status: Patient denies any tobacco usage or history of. Screenin/15 00:34 Abuse screen: Denies threats or abuse. Denies injuries from another. Nutritional lg3 screening: No deficits noted. Tuberculosis screening: No symptoms or risk factors identified. Fall Risk None identified. Assessment: 00:33 General: Appears in no apparent distress. uncomfortable, Behavior is calm, cooperative. lg3 Pain: Complains of pain in back Pain radiates to left leg. Neuro: No deficits noted. Level of Consciousness is awake, alert, obeys commands, Oriented to person, place, time, situation. Cardiovascular: No deficits noted. Denies chest pain, shortness of breath. Respiratory: No deficits noted. Airway is patent Trachea midline Respiratory effort is even, unlabored, Respiratory pattern is regular, symmetrical. GI: No deficits noted. No signs and/or symptoms were reported involving the gastrointestinal system. Abdomen is round non-distended. : No deficits noted. No signs and/or symptoms were reported regarding the genitourinary system. EENT: No deficits noted. No signs and/or symptoms were reported regarding the EENT system. Derm: No deficits noted. No signs and/or symptoms reported regarding the dermatologic system. Skin is intact, is healthy with good turgor, Skin is dry. Musculoskeletal: Circulation, motion, and sensation intact. Range of motion: intact in all extremities, Reports weakness in left leg. 02:04 Reassessment: Patient appears in no apparent distress at this time. Patient and/or lg3 family updated on plan of care and expected duration. Pain level reassessed. Patient is alert, oriented x 3, equal unlabored respirations, skin warm/dry/pink. Patient states symptoms have improved. Vital Signs: 02/02 23:39 BP 101 / 55; Pulse 78; Resp 18 S; Temp 98.8(TE); Pulse Ox 100% on R/A; Weight 92.99 kg as6 (R); Height 5 ft. 9 in. (175.26 cm) (R); Pain 10; 02/03 01:40 BP 118 / 72; Pulse 70; Resp 16 S; Pulse Ox 100% on R/A; lg3 03:11 BP 116 / 68; Pulse 72; Resp 17 S; Pulse Ox 100% on R/A; lg3 02/02 23:39 Body Mass Index 30.27 (92.99 kg, 175.26 cm) as6 ED Course: 02/02 23:05 Patient arrived in ED. jj6 23:44 Triage completed. as6 23:48 Arm band placed on. as6 03 00:24 [facility] jr8 00:24 Luis Alberto Becerra MD is Attending Physician. jr8 00:32 Ligia Cisneros, NENA is Primary Nurse. lg3 00:34 Patient has correct armband on for positive identification. Bed in low position. Call lg3 light in reach. Side rails up X 1. Pulse ox on. NIBP on. Door closed. Noise minimized. Warm blanket given. 01:12 Inserted saline lock: 20 gauge in right hand, using aseptic technique. lg3 03:10 No provider procedures requiring assistance completed. IV discontinued, intact, lg3 bleeding controlled, No redness/swelling at site. Pressure dressing applied. Administered Medications: 01:11 Drug: Robaxin (methocarbamol) 1 grams Route: IVPB; Rate: 100 ml/hr; Infused Over: 1 lg3 hrs; Site: right hand; 03:13 Follow up: Response: No adverse reaction; IV Status: Completed infusion; IV Intake: lg3 100ml 01:11 Drug: morphine 4 mg Route: IVP; Site: right hand; lg3 01:11 Follow up: Response: No adverse reaction; RASS: Alert and Calm (0) lg3 01:11 Drug: Zofran (Ondansetron) 4 mg Route: IVP; Site: right hand; lg3 01:11 Follow up: Response: No adverse reaction lg3 01:12 Drug: Decadron - Dexamethasone 10 mg Route: IVP; Site: right hand; lg3 01:12 Follow up: Response: No adverse reaction lg3 01:12 Drug: Ketorolac 30 mg Route: IVP; Site: right hand; lg3 01:12 Follow up: Response: No adverse reaction lg3 03:09 Drug: Dilaudid (HYDROmorphone) 0.5 mg Route: IVP; Site: right hand; lg3 03:09 Follow up: Response: No adverse reaction; RASS: Alert and Calm (0) lg3 Intake: 03:13 IV: 100ml; Total: 100ml. lg3 Outcome: 02:49 Discharge ordered by . jr8 03:10 Discharged to home ambulatory. lg3 03:10 Condition: stable 03:10 Discharge instructions given to patient, Instructed on discharge instructions, follow up and referral plans. medication usage, Demonstrated understanding of instructions, medications, Prescriptions given X 4. 03:14 Patient left the ED. lg3 Signatures: Richard De La Garza PA PA jr8 Ligia Cisneros, RN RN lg3 Mirta Huerta jj6 Nacho Esparza RN RN as6
[2022-02-03] MEDS ORDERED: HYDROMORPHONE HCL 0.5 MG/0.5 ML INJ ONE (02:58)
[2022-02-03 03:30] VITALS: TEMP 98.8; O2SAT 100
[2022-02-03 03:32] VITALS: BP 116/68
== END 2022-02-03 03:14 | disposition home or self-care (01) ==
LOC: ER 23:00
DX: M54.50 Low back pain, unspecified (principal); K21.9 Gastro-esophageal reflux disease without esophagitis; F32.A Depression, unspecified
CPT/HCPCS: 96365; 96375; 99284; 96366; J1100; J1170; J2405; J2800

== ENCOUNTER 2022-05-27 00:09 | Emergency (ER) | payer OTHER ==
[2022-05-27] MEDS ORDERED: IBUPROFEN 400 MG TAB ONE (00:41)
[2022-05-27] MEDS ORDERED: HYDROCODONE/APAP 10/325 TAB ONE (00:41)
--- NOTE | 2022-05-27 03:20 | EDPHYS ---
Physician Documentation [facility] Name: Miranda Pacheco Age: 37 yrs Sex: Female : 1985 Arrival Date: 05/27/2022 Time: 00:12 Bed 5 Private MD: ED Physician Niles Baker HPI: 05/27 00:34 This 37 yrs old Female presents to ER via Ambulatory with complaints of Toe rn Injury. 00:34 The patient presents with an injury, pain. The complaints affect the right foot. Onset: rn The symptoms/episode began/occurred just prior to arrival. Modifying factors: The symptoms are alleviated by nothing, the symptoms are aggravated by weight bearing, movement. Associated signs and symptoms: Pertinent negatives: warmth, weakness. Severity of symptoms: At their worst the symptoms were moderate, in the emergency department the symptoms are unchanged. The patient has not experienced similar symptoms in the past. The patient has not recently seen a physician. Pt reports cooking barefoot, wooden rolling pin fell on right 1st toe. Reports pain is throbbing and not letting her sleep. No other injury. . Historical: - Allergies: 00:19 No Known Allergies; jb4 - PMHx: 00:19 Anxiety; depressive disorder; GERD; jb4 - PSHx: 00:19 section; hernia; lap band; jb4 - Immunization history:: Adult Immunizations up to date. - Social history:: Smoking status: Patient reports the use of cigarette tobacco products, denies chronic smoking, but will smoke occasionally. - Family history:: not pertinent. - Hospitalizations: : No recent hospitalization is reported. ROS: 00:34 Constitutional: Negative for fever, chills, and weight loss, MS/Extremity: + right rn great toe injury and pain Skin: Negative for injury, rash, and discoloration. Exam: 00:34 Constitutional: This is a well developed, well nourished patient who is awake, alert, rn and in no acute distress. MS/ Extremity: Pulses equal, no cyanosis. Neurovascular intact. + tenderness to distal 1st toe of right foot with subungual hematoma that is only about 20% of nail. No open wounds. Vital Signs: 00:17 BP 119 / 74; Pulse 79; Resp 16; Temp 98.2(TE); Pulse Ox 100% ; Weight 89.81 kg (R); jb4 Height 5 ft. 9 in. (175.26 cm) (R); Pain 9/10; 02:02 BP 108 / 61; Pulse 51; Resp 16 S; Pulse Ox 100% on R/A; as6 03:19 BP 95 / 68; Pulse 59; Resp 16 S; Pulse Ox 100% on R/A; as6 00:17 Body Mass Index 29.24 (89.81 kg, 175.26 cm) jb4 MDM: 00:17 Patient medically screened. rn 03:18 Differential diagnosis: fracture, contusion, subungual hematoma. Data reviewed: vital rn signs, nurses notes, radiologic studies, plain films, and as a result, I will discharge patient. Counseling: I had a detailed discussion with the patient and/or guardian regarding: the historical points, exam findings, and any diagnostic results supporting the discharge/admit diagnosis, radiology results, the need for outpatient follow up, to return to the emergency department if symptoms worsen or persist or if there are any questions or concerns that arise at home. Response to treatment: the patient's symptoms have mildly improved after treatment, and as a result, I will discharge patient. Special discussion: I discussed with the patient/guardian in detail that at this point there is no indication for admission to the hospital. It is understood, however, that if the symptoms persist or worsen the patient needs to return immediately for re-evaluation. ED course: Small subungual hematoma, < 1/3 of nail, no fracture on xray, will dc home with return precautions.. 05/27 00:30 Order name: XRAY Foot RIGHT 3 View rn Administered Medications: 00:37 Drug: Hydrocodone-Acetaminophen (10 mg-500 mg) 1 tabs Route: PO; as6 03:19 Follow up: Response: No adverse reaction; RASS: Alert and Calm (0) as6 00:37 Drug: Motrin (ibuprofen) 800 mg Route: PO; as6 03:20 Follow up: Response: No adverse reaction as6 Disposition Summary: 05/27/22 03:19 Discharge Ordered Location: Home rn Problem: new rn Symptoms: have improved rn Condition: Stable rn Diagnosis - Displaced fracture of distal phalanx of right great toe, initial encounter for rn closed fracture Followup: rn - With: Private Physician - When: As needed - Reason: Recheck today's complaints, Re-evaluation by your physician Discharge Instructions: - Discharge Summary Sheet rn - Subungual Hematoma rn Forms: - Medication Reconciliation Form rn - Thank You Letter rn - 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
--- NOTE | 2022-05-27 03:20 | ER ---
Nurse's Notes [facility] Name: Miranda Pacheco Age: 37 yrs Sex: Female : 1985 Arrival Date: 05/27/2022 Time: 00:12 Bed 5 Private MD: Diagnosis: Displaced fracture of distal phalanx of right great toe, initial encounter for closed fracture Presentation: 05/27 00:17 Chief complaint: Patient states: I was cooking and a rolling pin fell from the top jb4 shelf about 10-12 feet and fell on my big toe on my right foot. Coronavirus screen: At this time, the client does not indicate any symptoms associated with coronavirus-19. Ebola Screen: No symptoms or risks identified at this time. Initial Sepsis Screen: Does the patient meet any 2 criteria? No. Patient's initial sepsis screen is negative. Does the patient have a suspected source of infection? No. Patient's initial sepsis screen is negative. Risk Assessment: Do you want to hurt yourself or someone else? Patient reports no desire to harm self or others. Onset of symptoms was May 27, 2022. Transition of care: patient was not received from another setting of care. 00:17 Method Of Arrival: Ambulatory jb4 00:17 Acuity: LUCIAN 4 jb4 Historical: - Allergies: 00:19 No Known Allergies; jb4 - PMHx: 00:19 Anxiety; depressive disorder; GERD; jb4 - PSHx: 00:19 section; hernia; lap band; jb4 - Immunization history:: Adult Immunizations up to date. - Social history:: Smoking status: Patient reports the use of cigarette tobacco products, denies chronic smoking, but will smoke occasionally. - Family history:: not pertinent. - Hospitalizations: : No recent hospitalization is reported. Screenin:01 Abuse screen: Denies threats or abuse. Denies injuries from another. Nutritional as6 screening: No deficits noted. Tuberculosis screening: No symptoms or risk factors identified. Fall Risk None identified. Assessment: 00:30 General: Appears in no apparent distress. Behavior is calm, cooperative. Pain: as6 Complains of pain in right first toe. Neuro: Level of Consciousness is awake, alert. Respiratory: Respiratory effort is even, unlabored. Musculoskeletal: Swelling present in right first toe Reports pain in right first toe. Vital Signs: 00:17 BP 119 / 74; Pulse 79; Resp 16; Temp 98.2(TE); Pulse Ox 100% ; Weight 89.81 kg (R); jb4 Height 5 ft. 9 in. (175.26 cm) (R); Pain 9/10; 02:02 BP 108 / 61; Pulse 51; Resp 16 S; Pulse Ox 100% on R/A; as6 03:19 BP 95 / 68; Pulse 59; Resp 16 S; Pulse Ox 100% on R/A; as6 00:17 Body Mass Index 29.24 (89.81 kg, 175.26 cm) jb4 ED Course: 00:12 Patient arrived in ED. ag3 00:17 Niles Baker MD is Attending Physician. rn 00:19 Triage completed. jb4 00:19 Arm band placed on right wrist. jb4 00:28 Nacho Esparza, NENA is Primary Nurse. as6 01:00 XRAY Foot RIGHT 3 View In Process Unspecified. EDMS 02:01 Bed in low position. Call light in reach. Side rails up X2. as6 03:20 No provider procedures requiring assistance completed. Patient did not have IV access as6 during this emergency room visit. Administered Medications: 00:37 Drug: Hydrocodone-Acetaminophen (10 mg-500 mg) 1 tabs Route: PO; as6 03:19 Follow up: Response: No adverse reaction; RASS: Alert and Calm (0) as6 00:37 Drug: Motrin (ibuprofen) 800 mg Route: PO; as6 03:20 Follow up: Response: No adverse reaction as6 Medication: 03:20 VIS not applicable for this client. as6 Outcome: 03:19 Discharge ordered by . rn 03:20 Condition: stable as6 03:32 Discharged to home ambulatory. as6 03:32 Discharge instructions given to patient. 03:32 Patient left the ED. as6 Signatures: Dispatcher [employer] EDMS Niles Baker MD MD rn Bryson, James, RN RN 4 Helena Winter ag3 Nacho Esparza, NENA RN as6 Corrections: (The following items were deleted from the chart) 00:20 00:17 Pulse 79bpm; Resp 16bpm; Pulse Ox 100%; Temp 98.2F Temporal; 89.81 kg Reported; jb4 Height 5 ft. 9 in. Reported; BMI: 29.2; Pain 08/01; jb4
[2022-05-27 03:38] VITALS: TEMP 98.2; O2SAT 100
[2022-05-27 03:41] VITALS: BP 95/68
--- NOTE | 2022-05-27 09:55 | RAD REPORT ---
EXAM DESCRIPTION: RAD - Foot Right 3 View - 05/27/2022 12:58 am CLINICAL HISTORY: 37 years Female 1st toe injury, possible fracture TECHNIQUE: Three x-ray views of the right foot were performed on 05/27/2022 at 12:53 AM. COMPARISON: None FINDINGS: There is no evidence of fracture or dislocation. There is no significant arthritis or dege nerative change. No focal lytic or sclerotic bone lesions are seen. There is a small plantar calcan eal spur. Bone mineralization is normal. No acute soft tissue abnormalities are identified. IMPRESSION: No evidence of acute osseous injury involving the right foot. There is a small plantar c alcaneal spur. Electronically signed by: Chastity Copeland DO 05/27/2022 3:06 AM CDT Due to temporary technical issues with the PACS/Fluency reporting system, reports are being signed by the in house radiologists without review as a courtesy to insure prompt reporting. The interpreting radiologist is fully responsible for the content of the report.
== END 2022-05-27 03:32 | disposition home or self-care (01) ==
LOC: ER 00:09
DX: S92.421A Displaced fracture of distal phalanx of right great toe, initial encounter for closed fracture (principal); F17.210 Nicotine dependence, cigarettes, uncomplicated

== ENCOUNTER 2022-09-15 17:00 | Emergency (ER) | payer OTHER ==
--- OUTSIDE RECORDS SUMMARY | 2022-09-15 17:07 | XMS REPORT | Continuity of Care Document ---
:1985 Author Organization [facility] t Address [address] [place] [address] Care Team Providers Name Role Phone ATUL HICKS Primary Care Physician Unavailable GIULIANO ALEMAN Attending Clinician Unavailable ANTHONY MCKEE Attending Clinician Unavailable MAX FORD Attending Clinician Unavailable Only, Oscar Db Test Attending Clinician Unavailable Unknown, Attending Attending Clinician Unavailable Inder Conrad MD Attending Clinician Only, Pcp Test Attending Clinician Unavailable Bala Phelan MD Attending Clinician BALA PHELAN Attending Clinician Unavailable Brown Correa RN Attending Clinician Unavailable Only, Adc Test Attending Clinician Unavailable Giuliano Aleman MD Attending Clinician Doctor Unassigned, [place] Attending Clinician Unavailable DINORAH TURNER Attending Clinician Unavailable Remedios Steiner MD Attending Clinician Dinorah Estrada Attending Clinician Pob, Adc Lab Main Attending Clinician Unavailable Randell Chávez MD Attending Clinician RANDELL CHÁVEZ Attending Clinician Unavailable Leon Ya MD Attending Clinician Lab, Ang - Db Attending Clinician Unavailable Fernanda Madden PA-C Attending Clinician FERNANDA MADDEN Attending Clinician Unavailable Andrea Kasper CRNA Attending Clinician Thomas MD, Bryan S Attending Clinician Gigi Bonner DO Attending Clinician Heriberto LOPEZ, Dolores Das Attending Clinician GIULIANO ALEMAN Admitting Clinician Unavailable Giuliano Aleman MD Admitting Clinician Payers Payer Name Policy Type Policy Number Effective Date Expiration Date Koby degroot MEDICARE PART A \T\ [id number] 2009 B 00:00:00 FORMERLY [facility] [id number] 2022 MEDICAID 00:00:00 MEDICAID [facility] [id number] Problems Condition Condition Condition Status Onset Resolution Last Treating Co mments Source Name Details Category Date Date Treatment Clinician Date History of History of Disease Active U nivers classical classical 6-15 ity of 00:00: [place] section section 00 [facility] Family Family Disease Active Univers history of history of 6-15 it y of blood blood 00:00: [place] clots clots [facility] Bad odor Bad odor Disease Active Unive rs of urine of urine 6-15 ity of 00:00: [place] 00 [facility] Dry scalp Dry scalp Disease Active 2014-11 Uni vers 2-04 ity of 00:00: [place] 00 [facility] 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 0-29 it y of nt asthma nt asthma 00:[place] without without 00 Medical complicati complicati Br anch on on Nausea and Nausea and Disease Active 2014-11 U nivers vomiting vomiting 0-29 ity of during during 00:00: [place] 00 Medi jacqueline prior to prior to Branch 22 weeks 22 weeks gestation gestation Endometrio Endometrio Disease Active 2014-11 U nivers sis sis 0-29 ity of 00:00: [place] 00 Medical Branch History of History of Disease Active 2014-11 U nivers abuse abuse 0-29 ity of 00:00: [place] 00 [facility] History of History of Disease Active 2014-11 U nivers laparoscop laparoscop 0-29 it y of ic ic 00:00: [place] adjustable adjustable 00 Me dical gastric gastric Branch banding banding History of History of Disease Active 2014-11 U nivers inguinal inguinal 0-29 ity of hernia hernia 00:00: [place] repair repair 00 [facility] 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 Rule out [id number] Diagnosis Term Tso Utility Panic Panic Disease Active 2005-11 Univers disorder disorder -18 ity of without without 00:00: [place] agoraphobi agoraphobi 00 Me dical a a Branch No known No known Disease Metho di active active st problems problems Hospit a l Allergies, Adverse Reactions, Alerts Allergy Allergy Status Severity Reaction(s) Onset Inactive Treating Comm ents Source Name Type Date Date Clinician NO KNOWN Drug Active Univers ALLERGIE Class ity of S [facility] Family History Family Member Diagnosis Comments Start Date Stop Date Source Natural father No Known Problems Met [facility] Maternal grandfather Diabetes [facility] Maternal grandfather Hypertension [facility] Maternal grandmother Liver cancer [facility] Natural mother Arthritis [facility] Natural mother Hypertension [facility] Paternal grandfather [facility] Paternal grandmother [facility] Natural sister Diabetes [facility] Social History Social Habit Start Date Stop Date Quantity Comments Source History of tobacco Current smoker [facility] Exposure to 2022-07-10 2022-07-20 Not sure University of SARS-CoV-2 (event) 00:00:00 15:48:00 [facility] Alcohol intake 2022-05-18 2022-05-18 Current drinker Metho dist 00:00:00 00:00:00 of alcohol Hospital (finding) Cigarettes smoked 2021-10-20 2021-10-[address] current (pack per 00:00:00 00:00:00 Hospita l day) - Reported Cigarette 2021-10-20 2021-10-20 [facility] pack-years 00:00:00 00:00:00 Hospital Tobacco use and 2021-10-20 2021-10-20 Smokeless [facility] exposure 00:00:00 00:00:00 tobacco non-user Hospital Alcohol Comment 2021-08-11 2021-08-[address] 00:00:00 00:00:00 week Hospital History SDOH 2020-10-07 2020-10-07 99 University o f Alcohol Frequency 00:00:00 00:00:00 [place] M edical Branch History [facility] 2020-10-07 2020-10-07 99 [place] o f Alcohol Std Drinks 00:00:00 00:00:00 [place] [facility] History SDKS 2020-10-07 2020-10-07 99 [place] o f Alcohol Binge 00:00:00 00:00:00 [facility] al Branch Sex [birth year] At [birth year] [facility] 00:00:00 00:00:00 Hospital Smoking Status Start Date Stop Date Source Ex-smoker 2021-10-20 00:00:00 2021-10-20 00:00:00 [facility] Medications Ordered Filled Start Stop Current Ordering Indication Dosage Frequency Signature Comments Components Source Medication Medication Date Date Medication? Clinician (SIG) Name Name lithium 150 Yes 150mg Q.5D Take 150 M ethodi MG capsule 5-[address] 10:34: mouth 2 Hospita 32 (two) l times a day with meals. docosahexae Yes Take by Met hodi noic 5-[address] acid/epa 10:34: Hospita (FISH OIL 32 l ORAL) multivit-mi Yes Take by Met hodi nerals/foli 5-[address] c acid 10:34: Hospita (ADULT 32 l MULTIVITAMI N GUMMIES ORAL) FLUoxetine Yes 10mg QD Take 10 mg M ethodi (PROzac) 10 5-[address] MG capsule 10:34: daily. Hospi ta 32 l multivitami Yes 1{tbl} QD Take 1 Me thodi n tablet 5-[address] 10:34: mouth Hospita 32 daily. l calcium Yes 1{tbl} QD Take 1 Method i citrate/vit 5-[address] [place] D3 10:34: mouth Hospita (CITRACAL + 32 daily. l D ORAL) triamcinolo Yes PRN, Univer s ne 03-09 Starting ity of acetonide 12:16: on Wed (KENALOG) 00 03/09/22 at [facility] jacqueline injection 0716, Branch Until Discontinu ed, Routine, Intra-op triamcinolo 2022-0 2022- No PRN, Unive rs ne 03-09 Starting ity of acetonide 12:16: 15:33 on [facility] (KENALOG) 00 :08 03/09/22 at [facility] injection 0716, Branch Until Wed03/09/22 at 1033, Routine, Intra-op lidocaine Yes PRN, Univers 1% 03-09 Starting ity of (XYLOCAINE) 12:11: [place] 10 mg/mL (1 00 03/09/22 at Id dical %) 710, Branch injection Until Discontinu ed, Routine, Intra-op iohexoL Yes PRN, Univers (OMNIPAQUE 18 Starting ity o f 300-50 mL)) 12:11: on Wed [place] injection 00 03/09/22 at [facility] 0711, Branch Until Discontinu ed, Routine, Intra-op bupivacaine Yes PRN, Univer s (preserv 18 Starting ity of free) 12:11: on [facility] (SENSORCAIN 00 03/09/22 at Id dicar E MPF) 0.25 0711, Branch % (2.5 Until mg/mL) Discontinu injection ed, Routine, Intra-op lidocaine 2021- No PRN, Univers 1% 03-09 Starting ity of (XYLOCAINE) 12:11: 15:33 on Wed [place] 10 mg/mL (1 00 :08 03/09/22 at Id dical %) 710, Branch injection Until Wed03/09/22 at 1033, Routine, Intra-op iohexoL 2021-2021- No PRN, Univers (OMNIPAQUE 03-09 Starting ity of 300-50 mL)) 12:11: 15:33 on [facility] Antoine as injection 00 :08 03/09/22 at [facility] 0711, Branch Until Wed03/09/22 at 1033, Routine, Intra-op bupivacaine 2021-0 2021- No PRN, Unive rs (preserv 03-0918 Starting ity of free) 12:11: 15:33 on [facility] (SENSORCAIN 00 :08 03/09/22 at Id dical E MPF) 0.25 0711, Branch % (2.5 Until Mon mg/mL) 4/18/22 at injection 1033, Routine, Intra-op lactated 2021-0 2021- No 1000mL at 42 Unive rs ringers IV 4-18 04-18 mL/hr, ity of infusion 12:00: 11:59 1,000 mL, [place] 1,000 mL 00 :00 IV Medical Infusion, Branch ONCE, 1 dose, On Wed03/09/22 at 0700, Routine, DSU Pre-op lactated 2021-0 2022- No 1000mL at 42 Unive rs ringers IV 4-18 04-18 mL/hr, ity of infusion 12:00: 11:59 1,000 mL, [place] 1,000 mL 00 :00 IV Medical Infusion, Branch ONCE, 1 dose, On Wed03/09/22 at 0700, Routine, DSU Pre-op FLUoxetine 2021-0 Yes 10mg Take 10 mg U nivers 10 mg 4-18 by mouth 2 ity of capsule 08:33: (two) [place] 08 times Medical daily. Branch multivitami 2021-0 Yes 1{tbl} Take 1 Un padmini n tablet 4-18 tablet by ity of 08:33: mouth [place] 08 every Medical morning. Branch FLUoxetine 2-0 Yes 10mg Take 10 mg U nivers 10 mg 4-18 by mouth 2 ity of capsule 08:33: (two) [place] 08 times Medical daily. Branch multivitami 2021-0 Yes 1{tbl} Take 1 Un padmini n tablet 4-18 tablet by ity of 08:33: mouth [place] 08 every Medical morning. Branch FLUoxetine 2-0 Yes 10mg Take 10 mg U nivers 10 mg 4-18 by mouth 2 ity of capsule 08:33: (two) [place] 08 times Medical daily. Branch multivitami 2022-0 Yes 1{tbl} Take 1 Un padmini n tablet 4-18 tablet by ity of 08:33: mouth [place] 08 every Medical morning. Branch FLUoxetine 2022-0 Yes 10mg Take 10 mg U nivers 10 mg 4-18 by mouth 2 ity of capsule 08:33: (two) [place] 08 times Medical daily. Branch multivitami 2022-0 Yes 1{tbl} Take 1 Un padmini n tablet 4-18 tablet by ity of 08:33: mouth [place] 08 every Medical morning. Branch FLUoxetine 2022-0 Yes 10mg Take 10 mg U nivers 10 mg 4-18 by mouth 2 ity of capsule 08:33: (two) [place] 08 times Medical daily. Branch multivitami 2022-0 Yes 1{tbl} Take 1 Un padmini n tablet 4-18 tablet by ity of 08:33: mouth [place] 08 every Medical morning. Branch FLUoxetine 2022-0 Yes 10mg Take 10 mg U nivers 10 mg 4-18 by mouth 2 ity of capsule 08:33: (two) [place] 08 times Medical daily. Branch multivitami 2022-0 Yes 1{tbl} Take 1 Un padmini n tablet 4-18 tablet by ity of 08:33: mouth [place] 08 every Medical morning. Branch FLUoxetine 2022-0 Yes 10mg Take 10 mg U nivers 10 mg 4-18 by mouth 2 ity of capsule 08:33: (two) [place] 08 times Medical daily. Branch multivitami 2022-0 Yes 1{tbl} Take 1 Un padmini n tablet 4-18 tablet by ity of 08:33: mouth [place] 08 every Medical morning. Branch FLUoxetine 2-0 Yes 10mg Take 10 mg U nivers 10 mg 4-18 by mouth 2 ity of capsule 08:33: (two) [place] 08 times Medical daily. Branch multivitami 2021-0 Yes 1{tbl} Take 1 Un padmini n tablet 4-18 tablet by ity of 08:33: mouth [place] 08 every Medical morning. Branch FLUoxetine 2022-0 Yes 10mg Take 10 mg U nivers 10 mg 4-12 by mouth 2 ity of capsule 15:46: (two) [place] 22 times Medical daily. Branch multivitami 202-0 Yes 1{tbl} Take 1 Un padmini n tablet 4-12 tablet by ity of 15:46: mouth [place] 22 every Medical morning. Branch FLUoxetine 2022-0 Yes 10mg Take 10 mg U nivers 10 mg 4-12 by mouth 2 ity of capsule 15:46: (two) [place] 22 times Medical daily. Branch multivitami 2022-0 Yes 1{tbl} Take 1 Un padmini n tablet 4-12 tablet by ity of 15:46: mouth [place] 22 every Medical morning. Branch bromphenira 2022-0 Yes [id number] 5mL Take 5 mL Univers mine-pseudo 4-11 by mouth 4 it y of ephedrine-D 00:00: (four) [place] M (BROMFED 00 times Medical DM) 2-30-10 daily as Bran ch mg/5 mL needed for syrup Congestion /Allergies . bromphenira 2021-0 Yes [id number] 5mL Take 5 mL Univers mine-pseudo 4-11 by mouth 4 it y of ephedrine-D 00:00: (four) [place] M (BROMFED 00 times Medical DM) 2-30-10 daily as Bran ch mg/5 mL needed for syrup Congestion /Allergies . bromphenira 2021-0 Yes [id number] 5mL Take 5 mL Univers mine-pseudo 4-11 by mouth 4 it y of ephedrine-D 00:00: (four) [place] M (BROMFED 00 times Medical DM) 2-30-10 daily as Bran ch mg/5 mL needed for syrup Congestion /Allergies . bromphenira 2021-0 Yes [id number] 5mL Take 5 mL Univers mine-pseudo 4-11 by mouth 4 it y of ephedrine-D 00:00: (four) [place] M (BROMFED 00 times Medical DM) 2-30-10 daily as Bran ch mg/5 mL needed for syrup Congestion /Allergies . bromphenira 2021-0 Yes [id number] 5mL Take 5 mL Univers mine-pseudo 4-11 by mouth 4 it y of ephedrine-D 00:00: (four) [place] M (BROMFED 00 times Medical DM) 2-30-10 daily as Bran ch mg/5 mL needed for syrup Congestion /Allergies . bromphenira 2021-0 Yes [id number] 5mL Take 5 mL Univers mine-pseudo 4-11 by mouth 4 it y of ephedrine-D 00:00: (four) [place] M (BROMFED 00 times Medical DM) 2-30-10 daily as Bran ch mg/5 mL needed for syrup Congestion /Allergies . bromphenira 2021-0 Yes [id number] 5mL Take 5 mL Univers mine-pseudo 4-11 by mouth 4 it y of ephedrine-D 00:00: (four) [place] M (BROMFED 00 times Medical DM) 2-30-10 daily as Bran ch mg/5 mL needed for syrup Congestion /Allergies . bromphenira 0 Yes [id number] 5mL Take 5 mL Univers mine-pseudo 4-11 by mouth 4 it y of ephedrine-D 00:00: (four) [place] M (BROMFED 00 times Medical DM) 2-30-10 daily as Bran ch mg/5 mL needed for syrup Congestion /Allergies . bromphenira 0 Yes [id number] 5mL Take 5 mL Univers mine-pseudo 4-11 by mouth 4 it y of ephedrine-D 00:00: (four) [place] M (BROMFED 00 times Medical DM) 2-30-10 daily as Bran ch mg/5 mL needed for syrup Congestion /Allergies . oseltamivir 2021- No [id number] 75mg Take 1 Univers 75 mg 4-11 04-17 capsule by ity of capsule 00:00: 04:59 mouth 2 [place] 00 :00 (two) Medical times Bowler daily for 5 days. oseltamivir 2021- No [id number] 75mg Take 1 Univers 75 mg 4-11 04-17 capsule by ity of capsule 00:00: 04:59 mouth 2 [place] 00 :00 (two) Medical times [place] daily for 5 days. oseltamivir 0 2021- No [id number] 75mg Take 1 Univers 75 mg 4-11 04-17 capsule by ity of capsule 00:00: 04:59 mouth 2 [place] 00 :00 (two) Medical times [place] daily for 5 days. FLUoxetine Yes 10mg Take 10 mg U nivers 10 mg 4-05 by mouth 2 ity of capsule 21:42: (two) [place] 05 times Medical daily. Branch multivitami Yes 1{tbl} Take 1 Un padmini n tablet 4-05 tablet by ity of 21:42: mouth [place] 05 every Medical morning. Branch lactated Yes 1000mL at 50 Univer s ringers IV 4-04 mL/hr, ity of infusion 14:00: 1,000 mL, [place] 1,000 mL 00 IV Medical Infusion, Branch CONTINUOUS , Starting on Wed02/23/22 at 0900, Until Discontinu ed, Routine, PACU lactated 2021- No 1000mL at 50 Unive rs ringers IV 4-04 04-04 mL/hr, ity of infusion 14:00: 17:17 1,000 mL, [place] as 1,000 mL 00 :04 IV Medical Infusion, Branch CONTINUOUS , Starting on Wed02/23/22 at 0900, Until Wed02/23/22 at 1217, Routine, PACU ondansetron 2022-0 Yes 4mg 4 mg, Slow Univers (ZOFRAN 4-04 IV Push, ity of (PF)) 13:46: PRN, 1 [place] injection 4 43 dose, Medical mg Starting Branch on Wed02/23/22 at 0846, Until Discontinu ed, Routine, Nausea and Vomiting (N/V), PACU ondansetron 2021-0 2022- No 4mg 4 mg, Slow Univers (ZOFRAN 4-04 04-04 IV Push, ity of (PF)) 13:46: 17:17 PRN, 1 [place] injection 4 43 :04 dose, Medical mg Starting Branch on Wed02/23/22 at 0846, Until Wed02/23/22 at 1217, Routine, Nausea and Vomiting (N/V), PACU lidocaine 2022-0 Yes PRN, Univers 1% 4-04 Starting ity of (XYLOCAINE) 13:05: on Wed [place] 10 mg/mL (1 02/23/22 at Med ical %) 0805, Branch injection Until Discontinu ed, Routine, Intra-op lidocaine 2022-0 2022- No PRN, Univers 1% 4-04 04-04 Starting ity of (XYLOCAINE) 13:05: 17:17 on Wed [place] 10 mg/mL (1 00 :04 02/23/22 at Med ical %) 0805, Branch injection Until Wed02/23/22 at 1217, Routine, Intra-op triamcinolo 2022-0 Yes PRN, Univer s ne 4-04 Starting ity of acetonide 13:04: on Wed [place] (KENALOG) 00 02/23/22 at Medic al injection 0804, Branch Until Discontinu ed, Routine, Intra-op iohexoL 2022-0 Yes PRN, Univers (OMNIPAQUE 4-04 Starting ity o f 300-50 mL)) 13:04: on Wed [place] injection 00 02/23/22 at Medic al 0804, Branch Until Discontinu ed, Routine, Intra-op bupivacaine Yes PRN, Univer s (preserv 4-04 Starting ity of free) 13:04: on [facility] (SENSORCAIN 00 02/23/22 at [facility]) 0.25 0804, Branch % (2.5 Until mg/mL) Discontinu injection ed, Routine, Intra-op triamcinolo 2021- No PRN, Unive rs ne 02-23 Starting ity of acetonide 13:04: 17:17 on [facility] (KENALOG) 00 :04 02/23/22 at Medic al injection 0804, Branch Until Wed02/23/22 at 1217, Routine, Intra-op iohexoL 2021- No PRN, Univers (OMNIPAQUE 02-23 Starting ity of 300-50 mL)) 13:04: 17:17 on Wed [place] as injection 00 :04 02/23/22 at Medic al 0804, Branch Until Wed02/23/22 at 1217, Routine, Intra-op bupivacaine 2021- No PRN, Unive rs (preserv 02-23 Starting ity of free) 13:04: 17:17 on [facility] (SENSORCAIN 00 :04 02/23/22 at [facility]) 0.25 0804, Branch % (2.5 Until Mon mg/mL) 02/23/22 at injection 1217, Routine, Intra-op lactated 2021- No 1000mL at 42 [facility] rs ringers IV 02-23 04-04 mL/hr, ity of infusion 12:15: 13:05 1,000 mL, [place] as 1,000 mL 00 :00 IV Medical Infusion, Branch ONCE, 1 dose, On Wed02/23/22 at 0715, Routine, DSU Pre-op lactated 2021- No 1000mL at 42 [facility] rs ringers IV - 04-04 mL/hr, ity of infusion 12:15: 13:05 1,000 mL, [place] as 1,000 mL 00 :00 IV Medical Infusion, Branch ONCE, 1 dose, On Wed02/23/22 at 0715, Routine, DSU Pre-op ceFAZolin 2021-0 Yes 1000mg 1,000 mg, U nivers (ANCEF) 4-04 Intravenou ity of injection 12:07: s, ONCE [place] 1,000 mg 15 INTRA Medical PROCEDURE, Branch Starting on Wed02/23/22 at 0707, Until Discontinu ed, Intra-op<b r>Reason for Anti-Infec tive: Surgical Prophylaxi s
Surgi jacqueline Prophylaxi s: Other (see Comments)< br>Duratio n of therapy: within 24 hours of surgery ceFAZolin 2-0 202- No 1000mg 1,000 mg, Univers (ANCEF) 4-04 04-04 Intravenou ity o f injection 12:07: 17:17 s, ONCE [place] 1,000 mg 15 :04 INTRA Medical PROCEDURE, Branch Starting on Wed02/23/22 at 0707, Until Wed02/23/22 at 1217, Intra-op<b r>Reason for Anti-Infec tive: Surgical Prophylaxi s
Surgi jacqueline Prophylaxi s: Other (see Comments)< br>Duratio n of therapy: within 24 hours of surgery FLUoxetine 2021-0 Yes 10mg Take 10 mg U nivers 10 mg 4-04 by mouth 2 ity of capsule 10:11: (two) [place] 57 times Medical daily. Branch multivitami 2021-0 Yes 1{tbl} Take 1 Un padmini n tablet 4-04 tablet by ity of 10:11: mouth [place] 57 every Medical morning. Branch FLUoxetine 2021-0 Yes 10mg Take 10 mg U nivers 10 mg 4-04 by mouth 2 ity of capsule 10:11: (two) [place] 57 times Medical daily. Branch multivitami 2021-0 Yes 1{tbl} Take 1 Un padmini n tablet 4-04 tablet by ity of 10:11: mouth [place] 57 every Medical morning. Branch FLUoxetine 2022-0 Yes 10mg Take 10 mg U nivers 10 mg 4-04 by mouth 2 ity of capsule 10:11: (two) [place] 57 times Medical daily. Branch multivitami 2021-0 Yes 1{tbl} Take 1 Un padmini n tablet 4-04 tablet by ity of 10:11: mouth [place] 57 every Medical morning. Branch FLUoxetine Yes 10mg Take 10 mg U nivers 10 mg 3-31 by mouth 2 ity of capsule 15:31: (two) [place] 56 times Medical daily. Branch multivitami Yes 1{tbl} Take 1 Un padmini n tablet 3-31 tablet by ity of 15:31: mouth [place] 56 every Medical morning. Branch FLUoxetine Yes 10mg Take 10 mg U nivers 10 mg 3-31 by mouth 2 ity of capsule 15:31: (two) [place] 56 times Medical daily. Branch multivitami Yes 1{tbl} Take 1 Un padmini n tablet 3-31 tablet by ity of 15:31: mouth [place] 56 every Medical morning. Branch prazosin Yes 1{capsu Take 1 Un padmini mg capsule 3-29 le} capsule by ity of 00:00: mouth [place] 00 daily. Medical Branch lithium Yes 1{capsu Take 1 Unive rs carbonate 3-29 le} capsule by ity of 300 mg 00:00: mouth 2 [place] capsule 00 (two) Medical times Branch daily. prazosin Yes 1{capsu Take 1 Un padmini mg capsule 3-29 le} capsule by ity of 00:00: mouth [place] 00 daily. Medical Branch lithium Yes 1{capsu Take 1 Unive rs carbonate 3-29 le} capsule by ity of 300 mg 00:00: mouth 2 [place] capsule 00 (two) Medical times Branch daily. prazosin Yes 1{capsu Take 1 Un padmini mg capsule 3-29 le} capsule by ity of 00:00: mouth [place] 00 daily. Medical Branch lithium Yes 1{capsu Take 1 Unive rs carbonate 3-29 le} capsule by ity of 300 mg 00:00: mouth [place] capsule 00 daily. Medical Branch prazosin Yes 1{capsu Take 1 Un padmini mg capsule 3-29 le} capsule by ity of 00:00: mouth [place] 00 daily. Medical Branch lithium Yes 1{capsu Take 1 Unive rs carbonate 3-29 le} capsule by ity of 300 mg 00:00: mouth [place] capsule 00 daily. Medical Branch prazosin Yes 1{capsu Take 1 Un padmini mg capsule 3-29 le} capsule by ity of 00:00: mouth [place] 00 daily. Medical Branch lithium Yes 1{capsu Take 1 Unive rs carbonate 3-29 le} capsule by ity of 300 mg 00:00: mouth [place] capsule 00 daily. Medical Branch prazosin Yes 1{capsu Take 1 Un padmini mg capsule 3-29 le} capsule by ity of 00:00: mouth [place] 00 daily. Medical Branch lithium Yes 1{capsu Take 1 Unive rs carbonate 3-29 le} capsule by ity of 300 mg 00:00: mouth [place] capsule 00 daily. Medical Branch prazosin Yes 1{capsu Take 1 Un padmini mg capsule 3-29 le} capsule by ity of 00:00: mouth [place] 00 daily. Medical Branch lithium Yes 1{capsu Take 1 Unive rs carbonate 3-29 le} capsule by ity of 300 mg 00:00: mouth [place] capsule 00 daily. Medical Branch prazosin Yes 1{capsu Take 1 Un padmini mg capsule 3-29 le} capsule by ity of 00:00: mouth [place] 00 daily. Medical Branch lithium Yes 1{capsu Take 1 Unive rs carbonate 3-29 le} capsule by ity of 300 mg 00:00: mouth [place] capsule 00 daily. Medical Branch prazosin Yes 1{capsu Take 1 Un padmini mg capsule 3-29 le} capsule by ity of 00:00: mouth [place] 00 daily. Medical Branch lithium Yes 1{capsu Take 1 Unive rs carbonate 3-29 le} capsule by ity of 300 mg 00:00: mouth 2 [place] capsule 00 (two) Medical times Branch daily. prazosin Yes 1{capsu Take 1 Un padmini mg capsule 3-29 le} capsule by ity of 00:00: mouth [place] 00 daily. Medical Branch lithium Yes 1{capsu Take 1 Unive rs carbonate 3-29 le} capsule by ity of 300 mg 00:00: mouth 2 [place] capsule 00 (two) Medical times Branch daily. prazosin Yes 1{capsu Take 1 Un padmini mg capsule 3-29 le} capsule by ity of 00:00: mouth [place] 00 daily. Medical Branch lithium Yes 1{capsu Take 1 Unive rs carbonate 3-29 le} capsule by ity of 300 mg 00:00: mouth 2 [place] capsule 00 (two) Medical times Branch daily. prazosin 1 Yes 1{capsu Take 1 Un padmini mg capsule 3-29 le} capsule by ity of 00:00: mouth [place] 00 daily. Medical Branch lithium Yes 1{capsu Take 1 Unive rs carbonate 3-29 le} capsule by ity of 300 mg 00:00: mouth 2 [place] capsule 00 (two) Medical times Branch daily. prazosin 1 Yes 1{capsu Take 1 Un padmini mg capsule 3-29 le} capsule by ity of 00:00: mouth [place] 00 daily. Medical Branch lithium Yes 1{capsu Take 1 Unive rs carbonate 3-29 le} capsule by ity of 300 mg 00:00: mouth 2 [place] capsule 00 (two) Medical times Branch daily. prazosin 1 Yes 1{capsu Take 1 Un padmini mg capsule 3-29 le} capsule by ity of 00:00: mouth [place] 00 daily. Medical Branch lithium Yes 1{capsu Take 1 Unive rs carbonate 3-29 le} capsule by ity of 300 mg 00:00: mouth 2 [place] capsule 00 (two) Medical times Branch daily. prazosin 1 Yes 1{capsu Take 1 Un padmini mg capsule 3-29 le} capsule by ity of 00:00: mouth [place] 00 daily. Medical Branch lithium Yes 1{capsu Take 1 Unive rs carbonate 3-29 le} capsule by ity of 300 mg 00:00: mouth 2 [place] capsule 00 (two) Medical times Branch daily. prazosin 1 Yes 1{capsu Take 1 Un padmini mg capsule 3-29 le} capsule by ity of 00:00: mouth [place] 00 daily. [facility] lithium Yes 1{capsu Take 1 Unive rs carbonate 3-29 le} capsule by ity of 300 mg 00:00: mouth 2 [place] capsule 00 (two) Medical times Branch daily. minocycline 2022-0 Yes 1{capsu Take 1 U nivers 100 mg 3-22 le} capsule by ity of capsule 00:00: mouth [place] 00 daily. [facility] minocycline 2022-0 Yes 1{capsu Take 1 U nivers 100 mg 3-22 le} capsule by ity of capsule 00:00: mouth [place] 00 daily. [facility] minocycline 2022-0 Yes 1{capsu Take 1 U nivers 100 mg 3-22 le} capsule by ity of capsule 00:00: mouth [place] 00 daily. [facility] minocycline 2-0 Yes 1{capsu Take 1 U nivers 100 mg 3-22 le} capsule by ity of capsule 00:00: mouth [place] 00 daily. [facility] minocycline 2-0 Yes 1{capsu Take 1 U nivers 100 mg 3-22 le} capsule by ity of capsule 00:00: mouth [place] 00 daily. [facility] minocycline 2022-0 Yes 1{capsu Take 1 U nivers 100 mg 3-22 le} capsule by ity of capsule 00:00: mouth [place] 00 daily. [facility] minocycline 2-0 Yes 1{capsu Take 1 U nivers 100 mg 3-22 le} capsule by ity of capsule 00:00: mouth [place] 00 daily. [facility] minocycline 2022-0 Yes 1{capsu Take 1 U nivers 100 mg 3-22 le} capsule by ity of capsule 00:00: mouth [place] 00 daily. [facility] minocycline 2022-0 Yes 1{capsu Take 1 U nivers 100 mg 3-22 le} capsule by ity of capsule 00:00: mouth [place] 00 daily. [facility] minocycline 2022-0 Yes 1{capsu Take 1 U nivers 100 mg 3-22 le} capsule by ity of capsule 00:00: mouth [place] 00 daily. [facility] minocycline 2022-0 Yes 1{capsu Take 1 U nivers 100 mg 3-22 le} capsule by ity of capsule 00:00: mouth [place] 00 daily. [facility] minocycline 2022-0 Yes 1{capsu Take 1 U nivers 100 mg 3-22 le} capsule by ity of capsule 00:00: mouth [place] 00 daily. [facility] minocycline 2022-0 Yes 1{capsu Take 1 U nivers 100 mg 3-22 le} capsule by ity of capsule 00:00: mouth [place] 00 daily. [facility] minocycline 2022-0 Yes 1{capsu Take 1 U nivers 100 mg 3-22 le} capsule by ity of capsule 00:00: mouth [place] 00 daily. [facility] minocycline 2022-0 Yes 1{capsu Take 1 U nivers 100 mg 3-22 le} capsule by ity of capsule 00:00: mouth [place] 00 daily. [facility] minocycline 2022-0 Yes 1{capsu Take 1 U nivers 100 mg 3-22 le} capsule by ity of capsule 00:00: mouth [place] 00 daily. [facility] tiZANidine 2022-0 Yes 4{tbl} Take 4 Uni vers 4 mg tablet 3-19 tablets by it y of 00:00: mouth as [place] 00 needed. [facility] ibuprofen 2022-0 Yes 800mg Take 800 Uni vers 800 mg 3-19 mg by ity of tablet 00:00: mouth as [place] 00 needed. [facility] tiZANidine 2022-0 Yes 4{tbl} Take 4 [facility] vers 4 mg tablet 3-19 tablets by it y of 00:00: mouth as [place] 00 needed. [facility] ibuprofen 2022-0 Yes 800mg Take 800 Uni vers 800 mg 3-19 mg by ity of tablet 00:00: mouth as [place] 00 needed. [facility] tiZANidine 2-0 Yes 4{tbl} Take 4 Uni vers 4 mg tablet 3-19 tablets by it y of 00:00: mouth as [place] 00 needed. [facility] ibuprofen 2022-0 Yes 800mg Take 800 [facility] vers 800 mg 3-19 mg by ity of tablet 00:00: mouth as [place] 00 needed. [facility] tiZANidine 2022-0 Yes 4{tbl} Take 4 [facility] vers 4 mg tablet 3-19 tablets by it y of 00:00: mouth as [place] 00 needed. [facility] ibuprofen 2022-0 Yes 800mg Take 800 [facility] vers 800 mg 3-19 mg by ity of tablet 00:00: mouth as [place] 00 needed. [facility] tiZANidine 2022-0 Yes 4{tbl} Take 4 [facility] vers 4 mg tablet 3-19 tablets by it y of 00:00: mouth as [place] 00 needed. [facility] ibuprofen 2022-0 Yes 800mg Take 800 [facility] vers 800 mg 3-19 mg by ity of tablet 00:00: mouth as [place] 00 needed. [facility] tiZANidine 2022-0 Yes 4{tbl} Take 4 Uni vers 4 mg tablet 3-19 tablets by it y of 00:00: mouth as [place] 00 needed. [facility] ibuprofen 2022-0 Yes 800mg Take 800 Uni vers 800 mg 3-19 mg by ity of tablet 00:00: mouth as [place] 00 needed. [facility] tiZANidine 2022-0 Yes 4{tbl} Take 4 [facility] vers 4 mg tablet 3-19 tablets by it y of 00:00: mouth as [place] 00 needed. [facility] ibuprofen 2022-0 Yes 800mg Take 800 [facility] vers 800 mg 3-19 mg by ity of tablet 00:00: mouth as [place] 00 needed. [facility] tiZANidine 2022-0 Yes 4{tbl} Take 4 Uni vers 4 mg tablet 3-19 tablets by it y of 00:00: mouth as [place] 00 needed. [facility] ibuprofen 2022-0 Yes 800mg Take 800 Uni vers 800 mg 3-19 mg by ity of tablet 00:00: mouth as [place] 00 needed. [facility] tiZANidine 2022-0 Yes 4{tbl} Take 4 Uni vers 4 mg tablet 3-19 tablets by it y of 00:00: mouth as [place] 00 needed. [facility] ibuprofen 2022-0 Yes 800mg Take 800 Uni vers 800 mg 3-19 mg by ity of tablet 00:00: mouth as [place] 00 needed. [facility] tiZANidine 2022-0 Yes 4{tbl} Take 4 Uni vers 4 mg tablet 3-19 tablets by it y of 00:00: mouth as [place] 00 needed. [facility] ibuprofen 2022-0 Yes 800mg Take 800 Uni vers 800 mg 3-19 mg by ity of tablet 00:00: mouth as [place] 00 needed. [facility] tiZANidine 2022-0 Yes 4{tbl} Take 4 Uni vers 4 mg tablet 3-19 tablets by it y of 00:00: mouth as [place] 00 needed. [facility] ibuprofen 2022-0 Yes 800mg Take 800 Uni vers 800 mg 3-19 mg by ity of tablet 00:00: mouth as [place] 00 needed. [facility] tiZANidine 2022-0 Yes 4{tbl} Take 4 [facility] vers 4 mg tablet 3-19 tablets by it y of 00:00: mouth as [place] 00 needed. [facility] ibuprofen 2022-0 Yes 800mg Take 800 Uni vers 800 mg 3-19 mg by ity of tablet 00:00: mouth as [place] 00 needed. [facility] tiZANidine 2-0 Yes 4{tbl} Take 4 Uni vers 4 mg tablet 3-19 tablets by it y of 00:00: mouth as [place] 00 needed. [facility] ibuprofen 2-0 Yes 800mg Take 800 Uni vers 800 mg 3-19 mg by ity of tablet 00:00: mouth as [place] 00 needed. [facility] tiZANidine 2-0 Yes 4{tbl} Take 4 Uni vers 4 mg tablet 3-19 tablets by it y of 00:00: mouth as [place] 00 needed. [facility] ibuprofen 2-0 Yes 800mg Take 800 Uni vers 800 mg 3-19 mg by ity of tablet 00:00: mouth as [place] 00 needed. [facility] tiZANidine 2-0 Yes 4{tbl} Take 4 Uni vers 4 mg tablet 3-19 tablets by it y of 00:00: mouth as [place] 00 needed. [facility] ibuprofen 2-0 Yes 800mg Take 800 Uni vers 800 mg 3-19 mg by ity of tablet 00:00: mouth as [place] 00 needed. [facility] tiZANidine 2-0 Yes 4{tbl} Take 4 Uni vers 4 mg tablet 3-19 tablets by it y of 00:00: mouth as [place] 00 needed. [facility] ibuprofen 2-0 Yes 800mg Take 800 Uni vers 800 mg 3-19 mg by ity of tablet 00:00: mouth as [place] 00 needed. [facility] omeprazole 2021-2021- No 40mg QD Take 40 mg [facility] (PriLOSEC) 2-28 - by mouth [facility] 40 MG 10:21: 00:00 [facility] capsule 01 :00 l omeprazole 2021-2021- No 40mg QD Take 1 Meth [facility] (PriLOSEC) 12-[address] 40 MG 00:00: 04:59 (40 mg [facility] capsule 00 :00 total) by l mouth daily for 180 days. venlafaxine 2020-11- No 75mg QD Take 75 mg [facility] XR 12-[address] (EFFEXOR-XR 10:04: 00:00 daily. [facility] ) 75 MG 24 44 :00 l hr capsule lithium 150 2020- Yes 300mg 300 mg. Un padmini mg capsule 11-23 ity of 00:00: [facility] lithium 150 2020- Yes Univer s mg capsule 11-23 ity of 00:00: [facility] lithium 150 2020- Yes Univer s mg capsule 11-23 ity of 00:00: [facility] lithium 150 2020- Yes Univer s mg capsule 11-23 ity of 00:00: [facility] lithium 150 2020- Yes Univer s mg capsule 11-23 ity of 00:00: [facility] lithium 150 2020- Yes 300mg 300 mg. Un padmini mg capsule 11-23 ity of 00:00: [facility] lithium 150 2020- Yes 300mg 300 mg. Un padmini mg capsule 11-23 ity of 00:00: [facility] lithium 150 2020- Yes 300mg 300 mg. Un padmini mg capsule 11-23 ity of 00:00: [facility] lithium 150 2020- Yes 300mg 300 mg. Un padmini mg capsule 11-23 ity of 00:00: [place] [facility] lithium 150 2020- Yes 300mg 300 mg. Un padmini mg capsule 11-23 ity of 00:00: [place] [facility] lithium 150 2020- Yes 300mg 300 mg. Un padmini mg capsule 11-23 ity of 00:00: [place] [facility] lithium 150 2020- Yes 300mg 300 mg. Un padmini mg capsule 11-23 ity of 00:00: [facility] lithium 150 2020- Yes 300mg 300 mg. Un padmini mg capsule 11-23 ity of 00:00: [place] [facility] lithium 150 2020- Yes 300mg 300 mg. Un padmini mg capsule 11-23 ity of 00:00: [facility] Branch lithium 150 2020- Yes 300mg 300 mg. Un padmini mg capsule 11-23 ity of 00:00: [place] [facility] lithium 150 2020- Yes 300mg 300 mg. Un padmini mg capsule 11-23 ity of 00:00: [facility] lithium 150 2020- Yes 300mg 300 mg. Un padmini mg capsule 11-23 ity of 00:00: [place] [facility] lithium 150 2020- Yes 300mg 300 mg. Un padmini mg capsule 11-23 ity of 00:00: [place] [facility] lithium 150 2020-11 Yes 300mg 300 mg. Un padmini mg capsule 11-23 ity of 00:00: [place] [facility] lithium 150 2020- Yes 300mg 300 mg. Un padmini mg capsule 11-23 ity of 00:00: [place] [facility] lamoTRIgine 2020-11 Yes [facility] ([facility]) 11-23 [facility] 100 MG 00:00: [facility] tablet 00 l lamoTRIgine 0 Yes 200mg Take 200 U nivers 100 mg 9-29 mg by ity of tablet 00:00: mouth daily. Medical Branch lamoTRIgine 2020-0 Yes Univer s 100 mg 9-29 ity of tablet 00:00: [place] 00 [facility] lamoTRIgine 2020-0 Yes Univer s 100 mg 9-29 ity of tablet 00:00: [place] [facility] lamoTRIgine 2020-0 Yes Univer s 100 mg 9-29 ity of tablet 00:00: [place] [facility] lamoTRIgine 2020-0 Yes Univer s 100 mg 9-29 ity of tablet 00:00: [place] 00 [facility] lamoTRIgine 2020-0 Yes Univer s 100 mg 9-29 ity of tablet 00:00: [place] 00 [facility] lamoTRIgine 2020-0 Yes Univer s 100 mg 9-29 ity of tablet 00:00: [place] 00 [facility] lamoTRIgine 2020-0 Yes Univer s 100 mg 9-29 ity of tablet 00:00: [place] 00 [facility] lamoTRIgine 2020-0 Yes Univer s 100 mg 9-29 ity of tablet 00:00: [place] 00 [facility] lamoTRIgine 2020-0 Yes Univer s 100 mg 9-29 ity of tablet 00:00: [place] 00 [facility] lamoTRIgine 2020-0 Yes Univer s 100 mg 9-29 ity of tablet 00:00: [place] 00 [facility] lamoTRIgine 2020-0 Yes 200mg Take 200 U nivers 100 mg 9-29 mg by ity of tablet 00:00: mouth [place] 00 daily. Medical Branch lamoTRIgine 2021-0 Yes 200mg Take 200 U nivers 100 mg 9-29 mg by ity of tablet 00:00: mouth 00 daily. Medical Branch lamoTRIgine 2021-0 Yes 200mg Take 200 U nivers 100 mg 9-29 mg by ity of tablet 00:00: mouth 00 daily. Medical Branch lamoTRIgine 2021-0 Yes 200mg Take 200 U nivers 100 mg 9-29 mg by ity of tablet 00:00: mouth 00 daily. Medical Branch lamoTRIgine 2021-0 Yes 200mg Take 200 U nivers 100 mg 9-29 mg by ity of tablet 00:00: mouth 00 daily. Medical Branch lamoTRIgine 1-0 Yes 200mg Take 200 U nivers 100 mg 9-29 mg by ity of tablet 00:00: mouth 00 daily. Medical Branch lamoTRIgine 1-0 Yes 200mg Take 200 U nivers 100 mg 9-29 mg by ity of tablet 00:00: mouth 00 daily. Medical Branch lamoTRIgine 1-0 Yes 200mg Take 200 U nivers 100 mg 9-29 mg by ity of tablet 00:00: mouth 00 daily. Medical Branch lamoTRIgine 2021-0 Yes 200mg Take 200 U nivers 100 mg 9-29 mg by ity of tablet 00:00: mouth [place] 00 daily. [facility] Branch omeprazole 2021-0 Yes Univers 40 mg 8-19 ity of capsule 00:00: [place] 00 [facility] omeprazole 2021-0 Yes Univers 40 mg 8-19 ity of capsule 00:00: [place] 00 [facility] omeprazole 2021-0 Yes Univers 40 mg 8-19 ity of capsule 00:00: [place] 00 [facility] omeprazole 2021-0 Yes Univers 40 mg 8-19 ity of capsule 00:00: [place] 00 [facility] omeprazole 2021-0 Yes Univers 40 mg 8-19 ity of capsule 00:00: [place] 00 [facility] omeprazole 2021-0 Yes Univers 40 mg 8-19 ity of capsule 00:00: [place] 00 [facility] omeprazole 2021-0 Yes Univers 40 mg 8-19 ity of capsule 00:00: [place] 00 [facility] omeprazole 2021-0 Yes Univers 40 mg 8-19 ity of capsule 00:00: [place] 00 [facility] omeprazole 2021-0 Yes Univers 40 mg 8-19 ity of capsule 00:00: [place] 00 [facility] omeprazole 2021-0 Yes Univers 40 mg 8-19 ity of capsule 00:00: [place] 00 [facility] omeprazole 2021-0 Yes Univers 40 mg 8-19 ity of capsule 00:00: [place] 00 [facility] omeprazole 2021-0 Yes Univers 40 mg 8-19 ity of capsule 00:00: [place] 00 [facility] omeprazole 2021-0 Yes Univers 40 mg 8-19 ity of capsule 00:00: [place] 00 [facility] omeprazole 2021-0 Yes Univers 40 mg 8-19 ity of capsule 00:00: [place] 00 [facility] omeprazole 2021-0 Yes Univers 40 mg 8-19 ity of capsule 00:00: [place] [facility] omeprazole 2021-0 Yes Univers 40 mg 8-19 ity of capsule 00:00: [place] 00 [facility] omeprazole 2021-0 Yes Univers 40 mg 8-19 ity of capsule 00:00: [place] 00 [facility] omeprazole 2021-0 Yes Univers 40 mg 8-19 ity of capsule 00:00: [place] 00 [facility] omeprazole 2021-0 Yes Univers 40 mg 8-19 ity of capsule 00:00: [place] 00 [facility] omeprazole 2021-0 Yes Univers 40 mg 8-19 ity of capsule 00:00: [place] 00 [facility] Branch metroNIDAZO 2020-1 Yes [id number] 500mg Take 1 Univers LE 500 mg 1-17 tablet by ity o f tablet 00:00: mouth [place] 00 every 12 Medical (twelve) Branch hours. metroNIDAZO 2020- Yes [id number] 500mg Take 1 Univers LE 500 mg 1-17 tablet by ity o f tablet 00:00: mouth [place] 00 every 12 Medical (twelve) Branch hours. metroNIDAZO 2020- Yes [id number] 500mg Take 1 Univers LE 500 mg 1-17 tablet by ity o f tablet 00:00: mouth [place] 00 every 12 Medical (twelve) Branch hours. metroNIDAZO 2020- Yes [id number] 500mg Take 1 Univers LE 500 mg 1-17 tablet by ity o f tablet 00:00: mouth [place] 00 every 12 Medical (twelve) Branch hours. metroNIDAZO 2020- Yes [id number] 500mg Take 1 Univers LE 500 mg 1-17 tablet by ity o f tablet 00:00: mouth [place] 00 every 12 Medical (twelve) Branch hours. metroNIDAZO 2020- Yes [id number] 500mg Take 1 Univers LE 500 mg 1-17 tablet by ity o f tablet 00:00: mouth [place] 00 every 12 Medical (twelve) Branch hours. metroNIDAZO 2019- Yes [id number] 500mg Take 1 Univers LE 500 mg 1-17 tablet by ity o f tablet 00:00: mouth [place] 00 every 12 Medical (twelve) Branch hours. metroNIDAZO 2019-11 Yes [id number] 500mg Take 1 Univers LE 500 mg 1-17 tablet by ity o f tablet 00:00: mouth [place] 00 every 12 Medical (twelve) Branch hours. metroNIDAZO 2019- Yes [id number] 500mg Take 1 Univers LE 500 mg 1-17 tablet by ity o f tablet 00:00: mouth [place] 00 every 12 Medical (twelve) Branch hours. metroNIDAZO 2019- Yes [id number] 500mg Take 1 Univers LE 500 mg 1-17 tablet by ity o f tablet 00:00: mouth [place] 00 every 12 Medical (twelve) Branch hours. metroNIDAZO 2019- Yes [id number] 500mg Take 1 Univers LE 500 mg 1-17 tablet by ity o f tablet 00:00: mouth [place] 00 every 12 Medical (twelve) Branch hours. metroNIDAZO 2019- Yes [id number] 500mg Take 1 Univers LE 500 mg 1-17 tablet by ity o f tablet 00:00: mouth [place] 00 every 12 Medical (twelve) Branch hours. metroNIDAZO 2019- Yes [id number] 500mg Take 1 Univers LE 500 mg 1-17 tablet by ity o f tablet 00:00: mouth [place] 00 every 12 Medical (twelve) Branch hours. metroNIDAZO 2019- Yes [id number] 500mg Take 1 Univers LE 500 mg 1-17 tablet by ity o f tablet 00:00: mouth [place] 00 every 12 Medical (twelve) Branch hours. metroNIDAZO 2020- Yes [id number] 500mg Take 1 Univers LE 500 mg 1-17 tablet by ity o f tablet 00:00: mouth [place] 00 every 12 Medical (twelve) Branch hours. metroNIDAZO 2019- Yes [id number] 500mg Take 1 [facility] LE 500 mg 1-17 tablet by ity o f tablet 00:00: mouth [place] 00 every 12 Medical (twelve) Branch hours. metroNIDAZO 2020- Yes [id number] 500mg Take 1 [facility] LE 500 mg 1-17 tablet by ity o f tablet 00:00: mouth [place] 00 every 12 Medical (twelve) Branch hours. metroNIDAZO 2020- Yes [id number] 500mg Take 1 [facility] LE 500 mg 1-17 tablet by ity o f tablet 00:00: mouth [place] 00 every 12 Medical (twelve) Branch hours. metroNIDAZO 2020- Yes [id number] 500mg Take 1 [facility] LE 500 mg 1-17 tablet by ity o f tablet 00:00: mouth [place] 00 every 12 Medical (twelve) Branch hours. metroNIDAZO 2020- Yes [id number] 500mg Take 1 Univers LE 500 mg 1-17 tablet by ity o f tablet 00:00: mouth [place] 00 every 12 Medical (twelve) Branch hours. Immunizations Ordered Filled Immunization Date Status Comments [facility] e Immunization Name Name Influenza Virus 2020-10-07 Completed [facility] y of Vaccine Quad .5 mL 00:00:00 [place] [facility] IM 6+ MO Branch Influenza Virus 2020-10-07 Completed [facility] y of Vaccine Quad .5 mL 00:00:00 [place] [facility] IM 6+ MO Branch Influenza Virus 2020-10-07 Completed [facility]it y of Vaccine Quad .5 mL 00:00:00 [place] [facility] IM 6+ MO Branch Influenza Virus 2020-10-07 Completed [facility]it y of Vaccine Quad .5 mL 00:00:00 [place] [facility] IM 6+ MO Branch Influenza Virus 2020-10-07 Completed Universit y of Vaccine Quad .5 mL 00:00:00 [place] [facility] IM 6+ MO Branch Influenza Virus 2020-10-07 Completed Universit y of Vaccine Quad .5 mL 00:00:00 [place] [facility] IM 6+ MO Branch Influenza Virus 2020-10-07 Completed Universit y of Vaccine Quad .5 mL 00:00:00 [place] [facility] IM 6+ MO Branch Influenza Virus 2020-10-07 Completed Universit y of Vaccine Quad .5 mL 00:00:00 [place] [facility] IM 6+ MO Branch Influenza Virus 2020-10-07 Completed Universit y of Vaccine Quad .5 mL 00:00:00 [place] [facility] IM 6+ MO Branch Influenza Virus 2020-10-07 Completed Universit y of Vaccine Quad .5 mL 00:00:00 [place] [facility] IM 6+ MO Branch Influenza Virus 2020-10-07 Completed Universit y of Vaccine Quad .5 mL 00:00:00 [place] [facility] IM 6+ MO Branch Influenza Virus 2020-10-07 Completed Universit y of Vaccine Quad .5 mL 00:00:00 [place] [facility] IM 6+ MO Branch Influenza Virus 2020-10-07 Completed Universit y of Vaccine Quad .5 mL 00:00:00 [place] [facility] IM 6+ MO Branch Influenza Virus 2020-10-07 Completed Universit y of Vaccine Quad .5 mL 00:00:00 [place] [facility] IM 6+ MO Branch Influenza Virus 2020-10-07 Completed Universit y of Vaccine Quad .5 mL 00:00:00 [place] [facility] IM 6+ MO Branch Influenza Virus 2020-10-07 Completed Universit y of Vaccine Quad .5 mL 00:00:00 [place] [facility] IM 6+ MO Branch Influenza Virus 2020-10-07 Completed Universit y of Vaccine Quad .5 mL 00:00:00 [place] [facility] IM 6+ MO Branch Influenza Virus 2020-10-07 Completed Universit y of Vaccine Quad .5 mL 00:00:00 [place] [facility] IM 6+ MO Branch Influenza Virus 2020-10-07 Completed [facility] y of Vaccine Quad .5 mL 00:00:00 [place] [facility] IM 6+ MO Branch Influenza Virus 2020-10-07 Completed [facility] y of Vaccine Quad .5 mL 00:00:00 [place] [facility] IM 6+ MO Branch Influenza Virus 2019-10-04 Completed [facility] y of Vaccine Quad .5 mL 00:00:00 [place] [facility] IM 6+ MO Branch Influenza Virus 2019-10-04 Completed [facility] y of Vaccine Quad .5 mL 00:00:00 [place] [facility] IM 6+ MO Branch Influenza Virus 2019-10-04 Completed Universit y of Vaccine Quad .5 mL 00:00:00 [place] [facility] IM 6+ MO Branch Influenza Virus 2019-10-04 Completed Universit y of Vaccine Quad .5 mL 00:00:00 [place] [facility] IM 6+ MO Branch Influenza Virus 2019-10-04 Completed [facility]it y of Vaccine Quad .5 mL 00:00:00 [place] [facility] IM 6+ MO Branch Influenza Virus 2019-10-04 Completed Universit y of Vaccine Quad .5 mL 00:00:00 [place] [facility] IM 6+ MO Branch Influenza Virus 2019-10-04 Completed Universit y of Vaccine Quad .5 mL 00:00:00 [place] [facility] IM 6+ MO Branch Influenza Virus 2019-10-04 Completed Universit y of Vaccine Quad .5 mL 00:00:00 [place] [facility] IM 6+ MO Branch Influenza Virus 2019-10-04 Completed Universit y of Vaccine Quad .5 mL 00:00:00 [place] [facility] IM 6+ MO Branch Influenza Virus 2019-10-04 Completed [facility]it y of Vaccine Quad .5 mL 00:00:00 [place] [facility] IM 6+ MO Branch Influenza Virus 2019-10-04 Completed Universit y of Vaccine Quad .5 mL 00:00:00 [place] [facility] IM 6+ MO Branch Influenza Virus 2019-10-04 Completed Universit y of Vaccine Quad .5 mL 00:00:00 [place] [facility] IM 6+ MO Branch Influenza Virus 2019-10-04 Completed [facility]it y of Vaccine Quad .5 mL 00:00:00 [place] [facility] IM 6+ MO Branch Influenza Virus 2019-10-04 Completed Universit y of Vaccine Quad .5 mL 00:00:00 [place] [facility] IM 6+ MO Branch Influenza Virus 2019-10-04 Completed Universit y of Vaccine Quad .5 mL 00:00:00 [place] [facility] IM 6+ MO Branch Influenza Virus 2019-10-04 Completed [facility]it y of Vaccine Quad .5 mL 00:00:00 [place] [facility] IM 6+ MO Branch Influenza Virus 2019-10-04 Completed [facility]it y of Vaccine Quad .5 mL 00:00:00 [place] [facility] IM 6+ MO Branch Influenza Virus 2019-10-04 Completed [facility]it y of Vaccine Quad .5 mL 00:00:00 [place] [facility] IM 6+ MO Branch Influenza Virus 2019-10-04 Completed Universit y of Vaccine Quad .5 mL 00:00:00 [place] [facility] IM 6+ MO Branch Influenza Virus 2019-10-04 Completed Universit y of Vaccine Quad .5 mL 00:00:00 [place] [facility] IM 6+ MO Branch Influenza Virus 2018-08-24 Completed Universit y of Vaccine Quad .5 mL 00:00:00 [place] [facility] IM 6+ MO Branch Influenza Virus 2018-08-24 Completed [facility]it y of Vaccine Quad .5 mL 00:00:00 [place] [facility] IM 6+ MO Branch Influenza Virus 2018-08-24 Completed [facility]it y of Vaccine Quad .5 mL 00:00:00 [place] [facility] IM 6+ MO Branch Influenza Virus 2018-08-24 Completed [facility]it y of Vaccine Quad .5 mL 00:00:00 [place] [facility] IM 6+ MO Branch Influenza Virus 2018-08-24 Completed [facility]it y of Vaccine Quad .5 mL 00:00:00 [place] [facility] IM 6+ MO Branch Influenza Virus 2018-08-24 Completed Universit y of Vaccine Quad .5 mL 00:00:00 [place] [facility] IM 6+ MO Branch Influenza Virus 2018-08-24 Completed [facility]it y of Vaccine Quad .5 mL 00:00:00 [place] [facility] IM 6+ MO Branch Influenza Virus 2018-08-24 Completed [facility]it y of Vaccine Quad .5 mL 00:00:00 [place] [facility] IM 6+ MO Branch Influenza Virus 2018-08-24 Completed [facility]it y of Vaccine Quad .5 mL 00:00:00 [place] [facility] IM 6+ MO Branch Influenza Virus 2018-08-24 Completed Universit y of Vaccine Quad .5 mL 00:00:00 [place] [facility] IM 6+ MO Branch Influenza Virus 2018-08-24 Completed Universit y of Vaccine Quad .5 mL 00:00:00 [place] [facility] IM 6+ MO Branch Influenza Virus 2018-08-24 Completed [facility] y of Vaccine Quad .5 mL 00:00:00 [place] [facility] IM 6+ MO Branch Influenza Virus 2018-08-24 Completed [facility] y of Vaccine Quad .5 mL 00:00:00 [place] [facility] IM 6+ MO Branch Influenza Virus 2018-08-24 Completed [facility] y of Vaccine Quad .5 mL 00:00:00 [place] [facility] IM 6+ MO Branch Influenza Virus 2018-08-24 Completed [facility] y of Vaccine Quad .5 mL 00:00:00 [place] [facility] IM 6+ MO Branch Influenza Virus 2018-08-24 Completed [facility] y of Vaccine Quad .5 mL 00:00:00 [place] [facility] IM 6+ MO Branch Influenza Virus 2018-08-24 Completed [facility] y of Vaccine Quad .5 mL 00:00:00 [place] [facility] IM 6+ MO Branch Influenza Virus 2018-08-24 Completed [facility]it y of Vaccine Quad .5 mL 00:00:00 [place] [facility] IM 6+ MO Branch Influenza Virus 2018-08-24 Completed [facility] y of Vaccine Quad .5 mL 00:00:00 [place] [facility] IM 6+ MO Branch Influenza Virus 2018-08-24 Completed [facility]it y of Vaccine Quad .5 mL 00:00:00 [place] [facility] IM 6+ MO Branch TDAP 2016-01-21 Completed University of 00:00:00 [facility] TDAP 2016-01-21 Completed University of 00:00:00 [facility] TDAP 2016-01-21 Completed University of 00:00:00 [facility] TDAP 2016-01-21 Completed University of 00:00:00 [facility] TDAP 2016-01-21 Completed University of 00:00:00 [facility] TDAP 2016-01-21 Completed University of 00:00:00 [facility] TDAP 2016-01-21 Completed University of 00:00:00 [facility] TDAP 2016-01-21 Completed University of 00:00:00 [facility] TDAP 2016-01-21 Completed University of 00:00:00 [facility] TDAP 2016-01-21 Completed University of 00:00:00 [facility] TDAP 2016-01-21 Completed University of 00:00:00 [facility] TDAP 2016-01-21 Completed University of 00:00:00 [facility] TDAP 2016-01-21 Completed University of 00:00:00 [facility] TDAP 2016-01-21 Completed University of 00:00:00 [facility] TDAP 2016-01-21 Completed University of 00:00:00 [facility] TDAP 2016-01-21 Completed [facility] of 00:00:00 [facility] TDAP 2016-01-21 Completed [facility] 00:00:00 [facility] TDAP 2016-01-21 Completed [facility] 00:00:00 [facility] TDAP 2016-01-21 Completed [facility] 00:00:00 [facility] TDAP 2016-01-21 Completed [facility] of 00:00:00 [facility] Influenza Virus 2015-09-03 Completed Universit y of Vaccine Quad IM 3+ 00:00:00 [facility] Influenza Virus 2015-09-03 Completed Universit y of Vaccine Quad IM 3+ 00:00:00 [facility] Influenza Virus 2015-09-03 Completed Universit y of Vaccine Quad IM 3+ 00:00:00 [facility] Influenza Virus 2015-09-03 Completed Universit y of Vaccine Quad IM 3+ 00:00:00 [facility] Influenza Virus 2015-09-03 Completed Universit y of Vaccine Quad IM 3+ 00:00:00 [facility] Influenza Virus 2015-09-03 Completed Universit y of Vaccine Quad IM 3+ 00:00:00 [facility] Influenza Virus 2015-09-03 Completed Universit y of Vaccine Quad IM 3+ 00:00:00 [facility] Influenza Virus 2015-09-03 Completed Universit y of Vaccine Quad IM 3+ 00:00:00 [facility] Influenza Virus 2015-09-03 Completed Universit y of Vaccine Quad IM 3+ 00:00:00 [facility] Influenza Virus 2015-09-03 Completed Universit y of Vaccine Quad IM 3+ 00:00:00 [facility] Influenza Virus 2015-09-03 Completed Universit y of Vaccine Quad IM 3+ 00:00:00 [facility] Influenza Virus 2015-09-03 Completed Universit y of Vaccine Quad IM 3+ 00:00:00 [facility] Influenza Virus 2015-09-03 Completed Universit y of Vaccine Quad IM 3+ 00:00:00 [facility] Influenza Virus 2015-09-03 Completed Universit y of Vaccine Quad IM 3+ 00:00:00 [facility] Influenza Virus 2015-09-03 Completed Universit y of Vaccine Quad IM 3+ 00:00:00 [facility] Influenza Virus 2015-09-03 Completed Universit y of Vaccine Quad IM 3+ 00:00:00 [facility] Influenza Virus 2015-09-03 Completed Universit y of Vaccine Quad IM 3+ 00:00:00 [facility] Influenza Virus 2015-09-03 Completed Universit y of Vaccine Quad IM 3+ 00:00:00 [facility] Influenza Virus 2015-09-03 Completed Universit y of Vaccine Quad IM 3+ 00:00:00 [facility] Influenza Virus 2015-09-03 Completed Universit y of Vaccine Quad IM 3+ 00:00:00 [facility] Vital Signs Vital Name Observation Time Observation Value Comments Source Systolic blood 2022 13:14:00 106 mm[Hg] Univer sity of pressure [facility] Diastolic blood 2022 13:14:00 66 mm[Hg] Unive rsity of pressure [facility] Heart rate 2022 13:14:00 75 /min [facility] Respiratory rate 2022 13:14:00 21 /min [facility] Oxygen saturation in 2022 13:14:00 99 /min [facility] Arterial blood by [facility] Pulse oximetry Branch Body temperature 2022 12:48:[address] [facility] Body height 2022 11:53:00 175.3 cm [facility] Body weight 2022 11:53:00 93.895 kg [facility] BMI 2022 11:53:00 30.57 kg/m2 [facility] Systolic blood 2022 12:50:00 96 mm[Hg] Univer sity of pressure [facility] Diastolic blood 2022 12:50:00 54 mm[Hg] Unive rsity of pressure [facility] Heart rate 2022 12:50:00 70 /min [facility] Respiratory rate 2022 12:50:00 15 /min Univ [facility] Oxygen saturation in 2022 12:50:00 96 /min University Arterial blood by [facility] Pulse oximetry Branch Body temperature 2022 12:48:00 36.56 Zulma [facility] Body height 2022 11:53:00 175.3 cm [facility] Body weight 2022 11:53:00 93.895 kg [facility] BMI 2022 11:53:00 30.57 kg/m2 [facility] Systolic blood 2022-03-03 00:45:00 108 mm[Hg] Univer sity of pressure [facility] Diastolic blood 2022-03-03 00:45:00 60 mm[Hg] Unive rsity of pressure [facility] Heart rate 2022-03-03 00:45:00 76 /min [facility] Body temperature 2022-03-03 00:45:00 36.94 Zulma Univ ersity of [facility] Respiratory rate 2022-03-03 00:45:00 16 /min Univ [facility] Body height 2022-03-03 00:45:00 175.3 cm [facility] Body weight 2022-03-03 00:45:00 94.303 kg [facility] BMI 2022-03-03 00:45:00 30.68 kg/m2 [facility] Oxygen saturation in 2022-03-03 00:45:00 98 /min University of Arterial blood by [place] [employer] jacqueline Pulse oximetry Branch Systolic blood 2022-02-23 14:16:00 111 mm[Hg] Univer sity of pressure [facility] Diastolic blood 2022-02-23 14:16:00 57 mm[Hg] Unive rsity of pressure [facility] Heart rate 2022-02-23 14:16:00 60 /min [facility] Respiratory rate 2022-02-23 14:16:00 15 /min Univ [facility] Oxygen saturation in 2022-02-23 14:16:00 97 /min University of Arterial blood by [place] [employer] [facility] Pulse oximetry Branch Body temperature 2022-02-23 13:52:00 36.44 Zulma Univ [facility] Body height 2022-02-19 14:47:00 175.3 cm [facility] Body weight 2022-02-19 14:47:00 83.7 kg [facility] BMI 2022-02-19 14:47:00 27.24 kg/m2 [facility] Body height 2022-02-19 14:47:00 175.3 cm [facility] Body weight 2022-02-19 14:47:00 83.7 kg [facility] BMI 2022-02-19 14:47:00 27.24 kg/m2 [facility] Systolic blood 2021-10-07 15:39:00 106 mm[Hg] Univer sity of pressure [facility] Diastolic blood 2021-10-07 15:39:00 72 mm[Hg] Unive rsity of pressure [facility] Heart rate 2021-10-07 15:39:00 68 /min [facility] Respiratory rate 2021-10-07 15:39:00 18 /min Univ [facility] Body height 2021-10-07 15:39:00 175.3 cm [facility] Body weight 2021-10-07 15:39:00 83.66 kg [facility] BMI 2021-10-07 15:39:00 27.24 kg/m2 [facility] Oxygen saturation in 2021-10-07 15:39:00 98 /min University Arterial blood by [facility] Pulse oximetry Branch Systolic blood 2022-05-20 15:53:00 122 mm[Hg] [facility] pressure Diastolic blood 2022-05-20 15:53:00 86 mm[Hg[facility] pressure Heart rate 2022-05-20 15:53:00 80 /min [facility] Body temperature 2022-05-20 15:53:00 36.33 Zulma [facility] Respiratory rate 2022-05-20 15:53:00 16 /min [facility] Body height 2022-05-20 15:53:00 175.3 cm [facility] Body weight 2022-05-20 15:53:00 87.091 kg [facility] BMI 2022-05-20 15:53:00 28.35 kg/m2 [facility] Oxygen saturation in 2022-05-20 15:53:00 100 /min [facility] Arterial blood by Pulse oximetry Procedures Procedure Date / Time Performed Performing Clinician [facility] e ASSIGNMENT OF BENEFITS 2022-03-27 14:16:25 Doctor Unassigned, No [facility] FL TIME OR 2022 12:50:32 Giuliano Aleman [facility] (NON-REPORTABLE) [facility] FL TIME OR 2022 12:50:32 Love Giuliano [facility] (NON-REPORTABLE) [facility] BLOCK EPIDURAL 2022 12:25:00 Giuliano Aleman [facility] POCT TEST 2022 11:53:00 [facility] POCT TEST 2022 11:53:00 [facility] DAY SURGERY - ADC 2022 05:01:00 Doctor Unassigned, No [facility] ASSIGNMENT OF BENEFITS 2022-03-06 18:20:09 Doctor Unassigned, No [facility] POCT MOLECULAR FLU 2022-03-03 00:48:00 Johnny, Dinorah [facility] Branch FL TIME OR 2022-02-23 13:52:55 Giuliano Aleman [facility] (NON-REPORTABLE) Medical Branch FL TIME OR 2022-02-23 13:52:55 Giuliano Aleman [facility] (NON-REPORTABLE) Medical Branch BLOCK EPIDURAL 2022-02-23 13:25:00 Giuliano Aleman [facility] Medical Bowler POCT GLUCOSE 2022-02-23 12:26:00 Giuliano Aleman [facility] (AUTOMATED) Medical Branch POCT GLUCOSE 2022-02-23 12:26:00 Giuliano Aleman [facility] (AUTOMATED) Medical Branch POCT TEST 2022-02-23 12:23:00 Andrea Kasper [facility] POCT TEST 2022-02-23 12:23:00 Andrea Kasper [facility] DAY SURGERY - ADC 2022-02-23 05:01:00 Doctor Unassigned, No [facility] COVID-19 (ID NOW RAPID 2022-02-20 17:04:00 [facility] Medical Branch CONSENT/REFUSAL FOR 2022-02-20 16:47:17 Doctor Unassigned, No Un iversity [facility] DIAGNOSIS AND Name Medical Branch TREATMENT ASSIGNMENT OF BENEFITS 2022-02-20 16:47:01 Doctor Unassigned, No [facility] CBC WITH DIFF 2022-02-19 17:02:00 Giuliano Aleman [facility] ASSIGNMENT OF BENEFITS 2022-02-19 16:44:13 Doctor Unassigned, No [facility] Medical Branch EXTERNAL PROVIDER 2022-02-18 05:01:00 Doctor Unassigned, No Univ ersity [facility] RECORDS Name Medical Branch EXTERNAL PROVIDER 2022-02-18 05:01:00 Doctor Unassigned, No Univ ersity [facility] RECORDS Name Medical Branch ECG 12-LEAD 2021-10-09 00:00:00 Provider, Historical [facility] CV ECHO EXTERNAL STUDY 2021-10-09 00:00:00 Provider, Historical [facility] FL UGI W AIR HD BA W 2021-10-03 17:25:[address] [facility] OR WO KUB Plan of Care Planned Activity Planned Date Details Comments Source Future Scheduled 2022-07-21 HEPATITIS B [facility] 14:20:56 VACCINES (1 of 3 - 3-dose series) [code = HEPATITIS B VACCINES (1 of 3 - 3-dose series)] Future Scheduled 2022-07-21 COVID-[address] [facility] Test 14:20:56 (#1) [code = COVID-19 VACCINE (#1)] Future Scheduled 2022-07-21 Hepatitis C [facility] Test 14:20:56 screening (procedure) [code = 767289569] Future Scheduled 2022-07-21 Screening for [facility] Test 14:20:56 malignant neoplasm of cervix (procedure) [code = 740126987] Future Scheduled 2022-07-21 INFLUENZA VACCINE [facility] Test 14:20:56 [code = INFLUENZA VACCINE] Encounters Start End Encounter Admission Attending Care Care Encounter Source Date/Time Date/Time Type Type Clinicians Facility Department ID 2022-03-23 Outpatient R LOVE [facility] ANS [id number] Univers 10:41:57 [facility] 2021-09-21 Outpatient R [facility] ANS [id number] Univers 13:55:59 [facility] 2021-09-21 Outpatient R LOVE [facility] ANS [id number] Univers 09:55:10 [facility] 2021-09-21 Outpatient R LOVE [facility] ANS [id number] Univers 09:54:58 GIULIANO [facility] 2022-10-08 2022-10-08 Outpatient R ANTHONY MCKEE [facility] [id number] Univers 09:00[facility] 2022-10-08 2022-10-08 Outpatient R ANTHONY MCKEE [facility] [id number] Univers 09:00:00 09:00:00 [facility] 2022-07-20 2022-07-20 Outpatient R LILIANA [facility] [id number] Univers 15:30:00 15:59:45 RANIA ity [facility] 2022-07-20 2022-07-20 Laboratory Only, Ang Db Test [facility] 1.2.8 40.114 [id number] Univers 15:30:00 15:45:00 Only Unknown, Attending HEALTH 350.1.13.10 ity of [place] 4.2.7.2.686 Antoine as NANI?BLEA [id number] [facility] [address] MEDICAL OFFICE BUILDING 2022-05-20 2022-05-20 Office Anamaria, 1.2.840.1 [id number] 2099 [id number] Methodi 10:30:00 12:00:34 Visit Inder 12152.1.[address] 3.430.2.7 Hospit a .3.689779 l .8 2022-05-20 2022-05-20 Outpatient ANAMARIA [facility] [id number] [place] 00:00:00 00:00:00 INDER [address] 2022-05-20 2022-05-20 Travel 1.2.840.1 1.2.543.027 2310 [id number] Methodi 00:00:00 00:00:[address] 3.430.2.7 0.2.7.3.698 Ho spita .3.031606 084.8 l .8 2022-05-18 2022-05-18 Office Anamaria, 1.2.840.8 [id number] 2099 [id number] Methodi 10:45:00 12:10:50 Visit Inder 28186.1.[address] 3.430.2.7 Hospit a .3.693888 l .8 2022-05-18 2022-05-18 Outpatient [facility]IA [facility] [id number] Riner 00:00:00 00:00:00 INDER [address] 2022-05-18 2022-05-18 Travel 1.2.840.1 1.2.728.029 8768 [id number] Methodi 00:00:00 00:00:[address] 3.430.2.7 0.2.7.3.698 Ho spita .3.996762 084.8 l .8 2022-04-26 2022-04-26 Laboratory Only, Pcp Test [place] 1.2.840. 114 [id number] [facility] 09:30:00 09:45:00 Only Bala Phelan Dottie [facility] 350.1.13.10 it[place] [id number] [address] 2022-04-26 2022-04-26 Outpatient R YUSEF [facility] [id number] [facility] 09:30:00 09:30:00 BALA mccallum [facility] 2022-04-26 2022-04-26 Telephone OJEL Correa 1.2.412.513 [id number] [facility] 00:00:00 00:00:00 Brown REBOLLEDO 350.1.13.10 ity of [facility] 4.2.7.2.686 Antoine as [id number] [address] 2022-04-13 2022-04-13 Office Conrad, 1.2.840.4 [id number] 2100 [id number] Methodi 09:45:00 12:00:30 Visit Inder 66846.1.[address] 3.430.2.7 Hospit a .3.804515 l .8 2022-04-13 2022-04-13 [facility] [id number] Riner 00:00:00 00:00:00 INDER [address] 2022-04-13 2022-04-13 Travel 1.2.840.1 1.2.432.656 4474 [id number] Methodi 00:00:00 00:00:[address] 3.430.2.7 0.2.7.3.698 Ho spita .3.404373 084.8 l .8 2022-03-27 2022-03-27 Laboratory Only, Adc Test [facility] 1.2.840. 114 [id number] [facility] 09:45:00 10:00:00 Only Giuliano Aleman 350.1.13.1 0 it[place] [id number] [facility] 353 Branch 2022-03-27 2022-03-27 Outpatient Daniele ALEMAN [facility] [id number] Univers 09:45:00 09:45:00 [facility] 2022-03-27 2022-03-27 Orders Doctor JOEL 1.2.840.114 [id number] Univers 00:00:00 00:00:00 Only Unassigned, KESHA 350.1.13.10 ity of [place] [facility] 4.2.7.2.686 Antoine as [id number] [facility] 009 Branch 2022-03-16 2022-03-16 Office Anamaria .2.840.1 [id number] 2100 [id number] Methodi 10:00:00 10:42:23 Visit Inder 85000.1.[address] 3.430.2.7 Hospit a .3.433797 l .8 2022-03-16 2022-03-16 Outpatient [facility] [id number] R[place] 00:00:00 00:00:[address] INDER [address] 2022-03-16 2022-03-16 Travel 1.2.840.1 1.2.749.082 4494 [id number] Methodi 00:00:00 00:00:[address] 3.430.2.7 0.2.7.3.698 spita .3.677393 084.8 l .8 2022 2022 Outpatient Daniele ALEMAN [facility] ANS [id number] Univers 06:43:00 08:20:00 GIULIANO [facility] 2022 2022 [facility] Love, [facility] 1.2.840.114 [id number] Univers 06:43:00 08:20:00 Encounter Giuliano KOTHARI 350.1.13.10 ity of [facility] 4.2.7.2.[place] [id number] [facility] 071 Branch 2022 2022 Surgery Love [facility] 1.2.334.316 [id number] Univers 07:30:00 07:50:00 Giuliano Vasquez TAYE 350.1.13.10 ity of [facility] 4.2.7.2.[place] [id number] [facility] 020 Branch 2022 2022 Orders Doctor JOEL 1.2.840.114 [id number] Univers 00:00:00 00:00:00 Only Unassigned, KESHA 350.1.13.10 ity of [place] [facility] 4.2.7.2.686 Antoine as [id number] [facility] 009 Branch 2022-03-06 2022-03-06 Laboratory Only, Adc Test [facility] 1.2.840. 114 [id number] Univers 11:00:00 11:15:00 Only Giuliano Aleman TAYE 350.1.13.1 0 ity of [facility] 4.2.7.2.[place] [id number] [facility] 353 Branch 2022-03-06 2022-03-06 Outpatient R LOVE [facility] [id number] Univers 11:00:00 11:00:00 GIULIANO ity [facility] 2022-03-06 2022-03-06 Orders Doctor MALDONADO 1.2.840.114 [id number] Univers 00:00:00 00:00:00 Only Unassigned, KESHA 350.1.13.10 ity of [place] [facility] 4.2.7.2.686 Antoine as [id number] [facility] 009 [address] 2022-03-02 2022-03-02 Outpatient R JOHNNY [facility] [id number] Univers 19:40:00 20:21:58 DINORAH el [facility] 2022-03-02 2022-03-02 Remedios Bojorquez [facility] 1.2.840.114 [id number] Univers 19:40:00 20:00:00 Dinorah Marley [facility] 350.1.13.10 ity of [place] 4.2.7.2.686 Antoine as NANI?BLEA [id number] Id jeronimo [address] MEDICAL OFFICE BUILDING 2022-02-23 2022-02-23 Outpatient Daniele [facility] ANS [id number] Univers 07:06:00 09:42:00 GIULIANO ity of [facility] 2022-02-23 2022-02-23 [facility] 1.2.840.114 [id number] Univers 07:06:00 09:42:00 Encounter Giuliano KOTHARI 350.1.13.10 ity of [facility] 4.2.7.2.[place] [id number] [facility] 071 Branch 2022-02-23 2022-02-23 Surgery [facility] 1.2.545.860 [id number] Univers 08:15:00 08:35:00 Giuliano [place] 350.1.13.10 ity of [facility] 4.2.7.2.[place] [id number] [facility] 020 Branch 2022-02-23 2022-02-23 Orders Doctor MALDONADO 1.2.840.114 [id number] Univers 00:00:00 00:00:00 Only Unassigned, KESHA 350.1.13.10 [facility] 4.2.7.2.686 Antoine as [id number] [facility] 009 Branch 2022-02-20 2022-02-20 Laboratory Only, Adc Test [facility] 1.2.840. 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, Wendy Lab Main [facility] 1.2.8 40.114 [id number] Univers 12:15:00 12:30:00 Visit Randell Chávez 350.1.13.10 ity of [place].7.2.[place] [id number] Id dical [address] 2022-02-19 2022-02-19 Outpatient R SAIRA [facility] [id number] [facility] 12:15:00 12:15:00 RANDELL mccallum [facility] 2022-02-19 2022-02-19 Orders Doctor JOEL 1.2.840.114 [id number] Univers 00:00:00 00:00:00 Only Unassigned, KESHA 350.1.13.10 ity of [place] [facility] 4.2.7.2.686 Antoine as [id number] [address] 2022-02-16 2022-02-16 Office Anamaria, 1.2.840.1 [id number] 2099 [id number] Methodi 10:15:00 13:00:19 Visit Inder 05207.1.[address] 3.430.2.7 Hospit a .3.209438 l .8 2022-02-16 2022-02-16 Outpatient [facility]NAM[facility]IA [facility] [id number] Riner 00:00:00 00:00:00 INDER [address] 2022-02-16 2022-02-16 Travel 1.2.840.1 1.2.646.232 5444 [id number] Methodi 00:00:00 00:00:[address] 3.430.2.7 0.2.7.3.698 Ho spita .3.548400 084.8 l .8 2022-01-19 2022-01-19 Office Aanmaria, 1.2.840.2 [id number] 2099 [id number] Methodi 10:00:00 10:44:33 Visit Inder 56184.1.[address] 3.430.2.7 Hospit a .3.498545 l .8 2022-01-19 2022-01-19 Travel 1.2.840.1 1.2.350.600 2423 120002 Methodi 00:00:00 00:00:[address] 3.430.2.7 0.2.7.3.698 Ho spita .3.951328 084.8 l .8 2022-01-19 2022-01-19 Outpatient [facility] [id number] Riner 00:00:00 00:00:[address] INDER [address] 2021-12-22 2021-12-22 Office Anamaria, 1.2.840.7 [id number] 2099 [id number] Methodi 09:45:00 12:00:48 Visit Inder 57925.1.[address] 3.430.2.7 Hospit a .3.553817 l .8 2021-12-22 2021-12-22 Travel 1.2.840.1 1.2.567.550 7291 [id number] Methodi 00:00:00 00:00:[address] 3.430.2.7 0.2.7.3.698 Ho spita .3.226110 084.8 l .8 2021-12-22 2021-12-22 Outpatient [facility] [id number] Riner 00:00:00 00:00:00 INDER [address] 2021-12-01 2021-12-01 Telephone Conrad, 1.2.840.1 [id number] Methodi 00:00:00 00:00:[address] 3.430.2.7 Hospit a .3.878498 l .8 2021-10-20 2021-10-20 Office Anamaria, 1.2.840.1 [id number] 2099 [id number] Methodi 09:45:00 11:25:41 Visit Inder 07881.1.[address] 3.430.2.7 Hospit a .3.079222 l .8 2021-10-20 2021-10-20 Travel 1.2.840.1 1.2.104.042 1582 [id number] Methodi 00:00:00 00:00:[address] 3.430.2.7 0.2.7.3.698 Ho spita .3.760204 084.8 l .8 2021-10-20 2021-10-20 Outpatient [facility] [id number] Riner 00:00:00 00:00:[address] INDER [address] 2021-10-09 2021-10-09 Orders Provider, 1.2.840.3 [id number] Methodi 00:00:00 00:00:00 Only Historical 43607.1.1 661 s [address] 3.430.2.7 Hospit a .3.715454 l .8 2021-10-07 2021-10-07 Overhead Line Worker Lab, Ang - Db [facility] 1.2.840.1 14 [id number] Univers 11:25:23 11:40:23 Visit Fernanda Madden 350.1.13.10 alessio [facility] 4.2.7.2.686 Antoine as NANI?BLEA [id number] [address] MEDICAL OFFICE BUILDING 2021-10-07 2021-10-07 Outpatient Daniele [facility] [id number] Univers 11:15:00 11:15:00 FERNANDA mccallum [facility] 2021-10-07 2021-10-07 Office [place] [facility] 1.2.840.114 [id number] Univers 09:32:53 10:09:32 Visit Fernanda BUTLER 350.1.13.10 it y of [place] [id number] [address] 2021-10-07 2021-10-07 Outpatient Daniele [facility] [id number] Univers 09:30:00 10:09:32 FERNANDA [facility] 2021-10-07 2021-10-07 [facility] [id number] [facility] 09:30:00 09:30:00 FERNANDA [facility] 2021-10-07 2021-10-07 Orders Doctor JOEL 1.2.840.114 [id number] [facility] 00:00:00 00:00:00 Only Unassigned, KESHA 350.1.13.10 ity of [facility] 4.2.7.2.686 Antoine as [id number] [address] 2021-10-03 2021-10-03 [facility]1 [id number] [facility] 10:00:00 23:59:00 Encounter Inder [address]206.1.[address] 3.430.2.7 Hospit a .3.714966 l .8 2021-10-03 2021-10-03 Outpatient [facility] [id number] 00:00:00 00:00:[address] 2021-10-03 2021-10-03 Travel 1.2.840.1 1.2.018.737 [id number] [facility] 00:00:00 00:00:[address] 3.430.2.7 0.2.7.3.698 spita .3.509216 084.8 l .8 2021-08-11 2021[facility]08-11 [facility] [id number] [place] 00:00:00 00:00:00 IN[address] 2021-08-01 2021-08-01 [facility] [id number] 00:00:00 00:00:00 INDER [address] 2021-03-31 2021-03-31 [facility] [id number] [facility] 07:34:00 09:38:00 Encounter Giuliano Kothari 350.1.13.10 ity [facility] [place] [id number] [address] 2021-03-31 2021-03-31 [facility] [id number] Univers 07:34:00 09:38:00 GIULIANO ity [facility] 2021-03-31 2021-03-31 Surgery [facility] [id number] Univers 07:30:00 07:51:00 Giuliano S Dwarf 350.1.13.10 ity [place] [id number] [address] 2021-03-28 2021-03-28 [facility] [id number] Univers 08:15:00 08:15:00 GIULIANO ity [facility] 2021-03-28 2021-03-28 [facility] [id number] Univers 08:15:00 08:15:00 GIULIANO ity [facility] 2021-03-17 2021-03-17 [facility] [id number] Univers 06:52:00 08:28:00 Encounter Giuliano S Dwarf 350.1.13.10 [place] [id number] [address] 2021-03-17 2021-03-17 Surgery [facility] [id number] Univers 07:30:00 07:51:00 Giuliano S Dwarf 350.1.13.10 [place] 4[place].2.[place] [id number] [address] 2021-03-14 2021-03-14 [facility] [id number] Univers 13:00:00 13:00:00 GIULIANO ity [facility] 2021-03-14 2021-03-14 [facility] [id number] Univers 13:00:00 13:00:00 GIULIANO ity [facility] 2021-03-03 2021-03-03 Hospital [facility] [id number] Univers 06:15:00 08:31:00 Encounter Giuliano Kothari 350.1.13.10 [place] [id number] [facility] [address] 2021-03-03 2021-03-03 Anesthesia Majo Andrea [facility] 1.2.840.11 [id number] Univers 07:39:00 07:52:00 Event Bryan Thomas Dwarf 350.1.13. 10 [place] [phone] [facility] [address] 2021-03-03 2021-03-03 Surgery [facility] [id number] Univers 07:30:00 07:51:00 Giuliano Walk[place] 350.1.13.10 it[place] 4[place] [id number] [facility] [address] 2021-03-03 2021-03-03 Orders Doctor JOEL 1.2.840.114 [id number] Univers 00:00:00 00:00:00 Only Unassigned, KESHA 350.1.13.10 ity of [facility] 4.2.7.2.686 Antoine as [id number] [address] 2021-02-28 2021-02-28 Outpatient Daniele A[facility]MAN [facility] [id number] Univers 13:30:00 13:30:00 GIULIANO ity of [facility] 2021-02-28 2021-02-28 Outpatient Danilee [facility] [id number] Univers 13:30:00 13:30:00 GIULIANO ity of [facility] 2021-02-27 2021-02-27 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, Adc Lab Main [facility] 1.2.8 40.114 [id number] Univers 14:47:22 15:02:22 Visit Love, Giuliano Koby Kothari 350.1.13.1 0 [place] [phone] Me dical nal [address] [facility] 2021-02-27 2021-02-27 [facility] [id number] Univers 14:45:00 14:45:00 GIULIANO ity [facility] 2021-02-27 2021-02-27 [facility] [id number] Univers 14:45:00 14:45:00 [facility] 2021-02-27 2021-02-27 Orders Doctor JOEL 1.2.840.114 [id number] Univers 00:00:00 00:00:00 Only Unassigned, KESHA 350.1.13.10 ity of [place] [facility] 4.2.7.2.686 Antoine as [phone] [facility] [address] 2021-02-10 2021-02-10 [facility] 1.2.840.114 [id number] Univers 00:00:00 00:00:00 Outreach Gigi BEARD 350.1.13.10 i ty of [facility] 4.2.7.2.[place] [id number] Id dical [address] 2020-11-19 2020-11-19 [facility] 1.2.840.114 [id number] 10:00:00 23:59:00 Encounter Fernanda Kothari 350.1.13.10 [place] 4.2.7.2.686 [place] [id number] [facility] 2020-11-19 2020-11-19 [facility] 1.2.840.114 [id number] Univers 10:00:00 23:59:00 Encounter Fernanda Kothari 350.1.13.10 [place] [phone] [facility] [address] 2020-11-19 2020-11-19 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, Wendy Lab Main [facility] 1.2.8 40.114 [id number] Univers 10:22:12 10:37:12 Visit Dolores Louis 350.1.13.10 [place].2.[place] [phone] Id dical nal 353 [facility] 2020-11-19 2020-11-19 Outpatient R [facility] [id number] Univers 00:00:00 00:00:00 FERNANDA ity [facility] 2020-11-19 2020-11-19 Orders Doctor MALDONADO 1.2.840.114 [id number] Univers 00:00:00 00:00:00 Only Unassigned, KESHA 350.1.13.10 ity [facility] 4.2.7.2.686 [place] [id number] [address] 2020-10-22 2020-10-22 Outpatient R [facility] [id number] Univers 00:00:00 00:00:00 [facility] 2020-10-08 2020-10-08 [facility] [id number] Univers 00:00:00 00:00:00 Management Fernanda Kothari 350.1.13.10 ity [facility] 4[place]2.7.2.[place] [id number] Id dical nal [address] [facility] 2020-10-07 2020-10-07 Outpatient R [facility] [id number] Univers 13:30:00 13:30:00 FERNANDA alessio [facility] 2020-10-07 2020-10-07 [facility] 1.2.226.431 [id number] 10:40:17 11:56:46 Visit Fernanda Kothari 350.1.13.10 [place] 4.2.7.2.686 Professio [phone] [address] 2020-10-07 2020-10-07 [facility] [id number] Univers 10:40:17 11:56:46 Visit Fernanda Kothari 350.1.13.10 i ty of [place] 4[place]2.[place].2.[place] [id number] Id dical nal 134 [facility] 2020-10-07 2020-10-07 Orders Doctor MALDONADO 1.2.840.114 [id number] Univers 00:00:00 00:00:00 Only Unassigned, KESHA 350.1.13.10 ity of [place] [facility] 4.2.7.2.686 [place] as [id number] [address] 2020-02-06 2020-02-06 [facility] [id number] Univers 15:30:00 15:30:00 [facility] 2020-01-25 2020-01-25 Office [facility] [id number] Univers 14:38:35 15:15:45 Visit Fernanda Kothari 350.1.13.10 i ty of [place] 4.2.7.2.686 [place] Professio [id number] Id dical [address] 2020-01-25 2020-01-25 Outpatient R [facility] [id number] Univers 14:30:00 14:30:00 [facility] Results Test Description Test Time Test Comments Results Result Comments Source POCT Test 2022 11:53:00 Test Item Value Reference Range Interpretation Comme nts POCT PREG (test code = 1605) Negative On board controls acceptable with C Line (test code = 3574) Yes POCT PREG LOT # (test code = 3575) [id number] POCT PREG TEST DATE (test code = 3576) 2023-01-19 [facility] [id number] 11:53:00 Test Item Value Reference Range Interpretation Comments POCT PREG (test code = 1605) Negative On board controls acceptable with Yes C Line (test code = 3574) POCT PREG LOT # (test code = 3575) [id number] POCT PREG TEST DATE (test 2023-01-19 code = 3576) [facility] MOLECULAR [id number] 01:00:26 Test Item Value Reference Range Interpretation Comments POCT Molecular FluA (test code = Negative Negative 95833-6) POCT Molecular FluB (test code = Negative Negative 28965-7) Lab Interpretation (test code = Normal 18090-7) [facility] GLUCOSE (AUTOMATED)2022-02-23 12:28:35 Test Item Value Reference Range Interpretation Comments POCT GLU (test code = 7440159852) 89 mg/dL 70-110 Lab Interpretation (test code = Normal 23198-3) [facility] GLUCOSE (AUTOMATED)2022-02-23 12:28:35 Test Item Value Reference Range Interpretation Comments POCT GLU (test code = 6222460305) 89 mg/dL 70-110 Lab Interpretation (test code = Normal 62291-7) [facility] [id number] 12:26:00 Test Item Value Reference Range Interpretation Comments POCT Glu (age>30days) (test code = 89 mg/dL 70-110 3342) [facility] [id number] 12:26:00 Test Item Value Reference Range Interpretation Comments POCT Glu (age>30days) (test code = 89 mg/dL 70-110 3342) [facility] [id number] 12:23:00 Test Item Value Reference Range Interpretation Comments POCT PREG (test code = 1605) Negative On board controls acceptable with Yes C Line (test code = 3574) POCT PREG LOT # (test code = 3575) [id number] POCT PREG TEST DATE (test 2023-01-19 code = 3576) Lab Interpretation (test code = Normal 36014-0) [facility] [id number] 12:23:00 Test Item Value Reference Range Interpretation Comments POCT PREG (test code = 1605) Negative On board controls acceptable with Yes C Line (test code = 3574) POCT PREG LOT # (test code = 3575) [id number] POCT PREG TEST DATE (test 2023-01-19 code = 3576) Lab Interpretation (test code = Normal 72922-4) [facility] WITH [id number] 17:06:57 Test Item Value Reference Range Interpretation Comments WBC (test code = See_Comment [Automated 0090-2) message] The sy stem which generated this result transmitted reference range : 4.30 - 11.10 10*3/?L. The reference range was not used to interpret this result as normal/abnormal . RBC (test code = See_Comment [Automated 789-8) message] The sy stem which generated this result transmitted reference range : 3.93 - 5.25 10*6/?L. The reference range was not used to interpret this result as normal/abnormal . HGB (test code = 13.4 g/dL 11.6-15.0 718-7) HCT (test code = 40.5 % 35.7-45.2 4544-3) MCV (test code = 84.7 fL 80.6-95.5 787-2) MCH (test code = 28.0 pg 25.9-32.8 785-6) MCHC (test code = 33.1 g/dL 31.6-35.1 786-4) RDW-SD (test code = 46.3 fL 39.0-49.9 46378-7) RDW-CV (test code = 15.0 % 12.0-15.5 788-0) PLT (test code = See_Comment [Automated 777-3) message] The sy stem which generated this result transmitted reference range : 166 - 358 10*3/ ?L. The reference r bright was not used to interpret this result as normal/abnormal . MPV (test code = 9.0 fL 9.5-12.9 L 70925-4) NRBC/100 WBC (test See_Comment [Automat ed code = 5516266166) message] The system which generated this result transmitted reference range : 0.0 - 10.0 /100 WBCs. The refer ence range was not u sed to interpret th is result as normal/abnormal . NRBC x10^3 (test code <0.01 See_Comment [Auto mated = 9051028525) message] The s ystem which generated this result transmitted reference range : 10*3/?L. The reference range was not used to interpret this result as normal/abnormal . GRAN MAT (NEUT) % 58.0 % (test code = 770-8) IMM GRAN % (test code 0.20 % = 6637481656) LYMPH % (test code = 32.2 % 736-9) MONO % (test code = 5.8 % 5905-5) EOS % (test code = 2.7 % 713-8) BASO % (test code = 1.1 % 706-2) GRAN MAT x10^3(ANC) 2.61 10*3/uL 1.88-7.09 (test code = 1599473826) IMM GRAN x10^3 (test <0.03 0.00-0.06 code = 2720735181) LYMPH x10^3 (test code 1.45 10*3/uL 1.32-3.29 = 731-0) MONO x10^3 (test code 0.26 10*3/uL 0.33-0.92 L = 742-7) EOS x10^3 (test code = 0.12 10*3/uL 0.03-0.39 711-2) BASO x10^3 (test code 0.05 10*3/uL 0.01-0.07 = 704-7) Lab Interpretation Abnormal (test code = 49681-2) [facility] [place]
[2022-09-15 17:49] LABS: Urine Blood Trace-intact (Negative); Urine Glucose Negative (Negative); Urine Protein Negative (Negative)
[2022-09-15] MEDS ORDERED: KETOROLAC 30 MG/ML INJ ONE (17:57)
[2022-09-15] MEDS ORDERED: NA CHLORIDE 0.9% 1,000 ML ONE (17:57)
[2022-09-15 18:02] LABS: Absolute Lymphocytes (CBC) 0.5 K/uL (0.7-4.9); Hematocrit 39.1 % (36.0-45.0); MCV 87.2 fL (80-100); MPV 7.2 fL (7.6-11.3); RBC Red Blood Cell Count 4.49 M/uL (3.86-4.86)
[2022-09-15 18:03] LABS: Urine Mucus Slight /HPF (None Seen)
[2022-09-15 18:23] LABS: Albumin 3.5 g/dL (3.4-5.0); Bilirubin Total 0.7 mg/dL (0.2-1.0); Potassium 3.5 mmol/L (3.5-5.1)
--- NOTE | 2022-09-15 19:33 | RAD REPORT ---
EXAM DESCRIPTION: CTAbdomen Pelvis W Contrast - 09/15/2022 7:23 pm CLINICAL HISTORY: LLQ abdominal pain COMPARISON: <Comparisons> TECHNIQUE: CT of the abdomen and pelvis was performed. All CT scans are performed using dose optimization technique as appropriate and may include automated exposure control or mA/KV adjustment according to patient size. FINDINGS: Lower chest: Ground-glass opacities are present in the left lower lung. Fluid in distal es ophagus. Moderately thickened distal esophagus. Liver: No acute abnormality or suspicious lesions. Biliary: No biliary ductal dilatation. Stomach: Gastric banding. Duodenum: No significant focal abnormality. Pancreas: No significant abnormality. Spleen: No significant abnormality. Adrenal: No suspicious lesions. Kidney/ureter: No hydronephrosis. No renal calculi. Retroperitoneum: No retroperitoneal adenopathy. Vascular: No aneurysm. Bowel: No significant focal abnormality. Normal appendix. Peritoneum: No ascites or free air. Bladder: Grossly unremarkable. Reproductive: No adnexal masses. Bones: No acute fracture. Other: n/a IMPRESSION: Fluid distended and thickened distal esophagus status post gastric banding. The gastric band may be too constricting. Nodular airspace disease in the left lower suspicious for aspiration pn eumonitis.
[2022-09-15] MEDS ORDERED: CEFTRIAXONE 1000 MG/VIAL ONE (19:50)
[2022-09-15] MEDS ORDERED: AZITHROMYCIN 250 MG TAB ONE (19:50)
--- NOTE | 2022-09-15 20:30 | RAD REPORT ---
EXAM DESCRIPTION: RAD - Chest Pa And Lat (2 Views) - 09/15/2022 8:18 pm CLINICAL HISTORY: COUGH COMPARISON: Brain W/Wo Cont dated 08/30/2020; MRA Head Wo Cont dated 08/30/2020; Brain Wo Cont dated 1 CHEST SINGLE VIEW dated 09/27/2009; CHEST PA AND LAT 2 VIEW dated 02/06/2008 FINDINGS: Lines: None. Lungs: Ill-defined opacities at the left lung base. Pleural: No significant pleural effusions or pneumothorax. Cardiac: The heart size is within normal limits. Mediastinum: Within normal limits. Bones: No acute fractures. Other: None IMPRESSION: Mild airspace disease at the left lung base concerning for pneumonia.
--- NOTE | 2022-09-15 21:12 | EDPHYS ---
Physician Documentation [facility] Name: Miranda Pacheco Age: 37 yrs Sex: Female : 1985 Arrival Date: 09/15/2022 Time: 17:02 Bed 20 Private MD: Juana Rahman ED Physician Ifrah Burnett HPI: 09/15 17:20 This 37 yrs old Female presents to ER via Ambulatory with complaints of Fever. pm1 17:20 Onset: The symptoms/episode began/occurred this morning. Modifying factors: Recent pm1 medications: acetaminophen, unaware of sick contact. Associated signs and symptoms: Pertinent positives: chills, shortness of breath, vomiting, urinary symptoms with lower abdominal and low back pain. Patient reports back pain likely from sitting for long duration while inflating 1000 balloons yesterday with a machine. Severity of symptoms: in the emergency department the symptoms have improved. The patient has not experienced similar symptoms in the past. The patient has not recently seen a physician. This morning patient went to have a walk and while she was walking she noticed that she was having shortness of breath. Patient typically does not have any shortness of breath with her morning walks. Patient reports getting into her car and experiencing chills and fever. Patient has taken Tylenol for her fever. Patient is also concerned she might have a urinary tract infection. Reports lower abdominal pain left lower quadrant area and low back pain. However she reports low back pain might be due to sitting for prolonged duration while inflating 1000 balloons yesterday with a machine. 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 - Social history:: Smoking status: unknown. ROS: 17:20 Eyes: Negative for injury, pain, redness, and discharge, ENT: Negative for injury, pm1 pain, and discharge, Cardiovascular: Negative for chest pain, palpitations, and edema. 17:20 MS/Extremity: Negative for injury and deformity, Skin: Negative for injury, rash, and discoloration, Neuro: Negative for headache, weakness, numbness, tingling, and seizure. 17:20 Constitutional: Positive for body aches, chills, fever. 17:20 Respiratory: Positive for shortness of breath, Negative for cough. 17:20 Abdomen/GI: Positive for abdominal pain, nausea and vomiting, of the left lower quadrant, Negative for diarrhea. 17:20 Back: Positive for of the left low back and right low back, pain. 17:20 : Positive for urinary symptoms. 17:20 All other systems are negative. Exam: 17:20 Constitutional: This is a well developed, well nourished patient who is awake, alert, pm1 and in no acute distress. Head/Face: Normocephalic, atraumatic. 17:20 Back: No spinal tenderness. No costovertebral tenderness. Full range of motion. Skin: Warm, dry with normal turgor. Normal color with no rashes, no lesions, and no evidence of cellulitis. MS/ Extremity: Pulses equal, no cyanosis. Neurovascular intact. Full, normal range of motion. 17:20 Eyes: Exam is negative for acute changes, Periorbital structures: no acute changes, Extraocular movements: no acute changes, Conjunctiva: no acute changes, no injection. 17:20 Cardiovascular: Exam negative for acute changes, Rate: normal, Rhythm: regular, Pulses: no pulse deficits are appreciated, Heart sounds: normal, normal S1and S2. 17:20 Respiratory: Exam negative for acute changes, respiratory distress, shortness of breath, Breath sounds: are clear throughout. 17:20 Abdomen/GI: Inspection: abdomen appears normal, Palpation: soft, in all quadrants, mild abdominal tenderness, in the left lower quadrant. 17:20 Neuro: Exam negative for acute changes, Orientation: is normal, Mentation: is normal, Motor: is normal, moves all fours. Vital Signs: 17:13 BP 102 / 71; Pulse 109; Resp 18; Temp 98.7; Pulse Ox 100% on R/A; Weight 81.65 kg; em6 Height 5 ft. 9 in. (175.26 cm); Pain 6/10; 17:15 BP 102 / 64; Pulse 95; Resp 16; Pulse Ox 100% ; db 18:30 BP 98 / 47; Pulse 47; Resp 92; Temp 99.0; Pulse Ox 98% ; Pain 6/10; db 19:47 BP 102 / 59; Pulse 78; Resp 16; Pulse Ox 100% on R/A; em6 20:57 BP 106 / 56; Pulse 79; Resp 16; Pulse Ox 10% on R/A; em6 22:30 BP 101 / 61; Pulse 83; Resp 16; Pulse Ox 99% on R/A; em6 17:13 Body Mass Index 26.58 (81.65 kg, 175.26 cm) em6 MDM: 17:10 Patient medically screened. pm1 19:52 ED course: Patient denies any episodes of choking. I do not believe that the patient pm1 has aspiration pneumonia. Patient appeared to have flu-like symptoms with lower abdominal pain and dysuria. I believe that the patient has community-acquired pneumonia. Negative for COVID, strep, flu. Therefore we will treat patient with antibiotics for community-acquired pneumonia. Patient reports that she is aware of her gastric banding issue and actually had the band released this year and also suffers from acid reflux. Patient was also drinking water while waiting for the CT study . 21:11 Data reviewed: vital signs. Data interpreted: Pulse oximetry: on room air is 100 %. pm1 Interpretation: normal. 09/15 17:19 Order name: CBC with Diff; Complete Time: 18:06 pm1 09/15 17:19 Order name: CMP; Complete Time: 18:31 pm1 09/15 17:19 Order name: Lipase; Complete Time: 18:31 pm1 09/15 17:19 Order name: Flu; Complete Time: 18:31 pm1 09/15 17:19 Order name: Strep; Complete Time: 18:31 pm1 09/15 17:19 Order name: COVID-19 SARS RT PCR (Document "Date of Onset" if Symptomatic); Complete pm1 Time: 18:43 09/15 17:19 Order name: CT Abd/Pelvis - IV Contrast Only; Complete Time: 19:34 pm1 09/15 17:20 Order name: Urine Microscopic Only; Complete Time: 18:06 pm1 09/15 17:49 Order name: Urine Dipstick-Ancillary; Complete Time: 17:50 EDMS 09/15 17:50 Order name: Urine --Ancillary (enter results); Complete Time: 19:34 ss 09/15 18:23 Order name: Throat Culture EDMS 09/15 19:44 Order name: Chest Pa And Lat (2 Views) XRAY; Complete Time: 20:33 em6 09/15 17:19 Order name: Urine Dipstick-Ancillary (obtain specimen); Complete Time: 17:50 pm1 09/15 17:19 Order name: Urine Test (obtain specimen); Complete Time: 17:50 pm1 09/15 17:19 Order name: IV Saline Lock; Complete Time: 18:03 pm1 09/15 17:19 Order name: Labs collected and sent; Complete Time: 18:03 pm1 Administered Medications: 17:56 Drug: NS 0.9% 1000 ml Route: IV; Rate: 1000 ml; Site: right forearm; db 19:00 Follow up: Response: No adverse reaction; IV Status: Completed infusion; IV Intake: db 1000ml 17:56 Drug: Ketorolac 30 mg Route: IVP; Site: right forearm; db 19:00 Follow up: Response: No adverse reaction db 20:01 Drug: Rocephin (cefTRIAXone) 1 grams Route: IV; Rate: calculated rate; Site: right em6 forearm; 20:48 Follow up: Response: No adverse reaction; IV Status: Completed infusion; IV Intake: [id number] 20:01 Not Given (Physician Discretion): Zithromax (azithromycin) 500 mg PO once em6 21:29 Drug: Zithromax (azithromycin) 500 mg Route: IVPB; Infused Over: 1 hrs; Site: right em6 antecubital; 22:35 Follow up: Response: No adverse reaction; IV Status: Completed infusion; IV Intake: em6 250ml Disposition Summary: 09/15/22 21:12 Discharge Ordered Location: Home pm1 Problem: new pm1 Symptoms: have improved pm1 Condition: Stable pm1 Diagnosis - Pneumonia, unspecified organism pm1 Followup: pm1 - With: Emergency Department - When: As needed - Reason: Worsening of condition Followup: pm1 - With: Private Physician - When: 2 - 3 days - Reason: Recheck today's complaints, Continuance of care, Re-evaluation by your physician Discharge Instructions: - Discharge Summary Sheet pm1 - Community-Acquired Pneumonia, Adult pm1 Forms: - Medication Reconciliation Form pm1 - Thank You Letter pm1 - Antibiotic Education pm1 - Prescription Opioid Use pm1 Prescriptions: - azithromycin 200 mg/5 mL Oral suspension for reconstitution - take 6.25 milliliter by ORAL route once daily for 4 days; 25 milliliter; pm1 Refills: 0, Product Selection Permitted - Augmentin ES-600 600-42.9 mg/5 mL Oral Suspension for Reconstitution - take 7.2 milliliters by ORAL route every 12 hours for 10 days Max = 875mg/dose; pm1 150 milliliter; Refills: 0, Product Selection Permitted - Guaifenesin AC 10-100 mg/5 mL Oral Liquid - take 10 milliliters by ORAL route every 4 hours As needed; 240 milliliter; pm1 Refills: 0, Product Selection Permitted Signatures: Dispatcher [employer] EDRoberto Frazier NP IVF EMBRYOLOGIST pm1 Linda Redding, RN RN em6 Nhi Geller, RN RN db
--- NOTE | 2022-09-15 21:12 | ER ---
Nurse's Notes [facility] Name: Miranda Pacheco Age: 37 yrs Sex: Female : 1985 Arrival Date: 09/15/2022 Time: 17:02 Bed 20 Private MD: Juana Rahman Diagnosis: Pneumonia, unspecified organism Presentation: 09/15 17:13 Chief complaint: Patient states: "today at 0830 I started having chills shortness of em6 breath and when I eat I cant keep it down. I'm having lower abdominal pain and lower back pain. I took Tylenol dissolve packs 500 mg at 1000 and 1500. Coronavirus screen: Client denies travel out of the [place] in the last 14 days. Ebola Screen: Patient negative for fever greater than or equal to 101.5 degrees Fahrenheit, and additional compatible Ebola Virus Disease symptoms. Initial Sepsis Screen: Does the patient meet any 2 criteria? No. Patient's initial sepsis screen is negative. Does the patient have a suspected source of infection? No. Patient's initial sepsis screen is negative. Risk Assessment: Do you want to hurt yourself or someone else? Patient reports no desire to harm self or others. Onset of symptoms was September 15, 2022. 17:13 Method Of Arrival: Ambulatory em6 17:13 Acuity: LUCIAN 3 em6 Triage Assessment: 17:15 General: Appears comfortable, Behavior is cooperative. Pain: Complains of pain in back em6 and abdomen Pain does not radiate. Pain currently is 6 out of 10 on a pain scale. Quality of pain is described as sharp. EENT: No signs and/or symptoms were reported regarding the EENT system. Neuro: Level of Consciousness is awake, alert, obeys commands, Oriented to person, place, time, situation, Denies headache. Cardiovascular: Patient's skin is warm and dry. Respiratory: Airway is patent Respiratory effort is even, unlabored, Respiratory pattern is regular, symmetrical. GI: Abdomen is non-distended, Abd is soft and non tender X 4 quads. Reports lower abdominal pain, intolerance of fluids, intolerance of food, nausea. : No signs and/or symptoms were reported regarding the genitourinary system. Derm: No signs and/or symptoms reported regarding the dermatologic system. Musculoskeletal: Circulation, motion, and sensation intact. 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 - Social history:: Smoking status: unknown. Screenin:17 Abuse screen: Denies threats or abuse. Nutritional screening: No deficits noted. em6 Tuberculosis screening: No symptoms or risk factors identified. 17:45 Fall Risk IV access (20 points). Total Latif Fall Scale indicates No Risk (0-24 pts). em6 Assessment: 17:45 Reassessment: Patient appears in no apparent distress at this time. Patient is alert, db oriented x 3, equal unlabored respirations, skin warm/dry/pink. Reassessment: patient states has lower pelvic and back pain worse x 2 days but started 1 week ago with menstrual cycle. States had a fever this AM of 102.7. General: Appears. General: Appears in no apparent distress. comfortable, Behavior is calm, cooperative, appropriate for age, quiet. Pain: Complains of pain in pelvis radiating to back. Neuro: No deficits noted. Neuro: Level of Consciousness is awake, alert, obeys commands, Oriented to person, place, time, situation, Appropriate for age. Cardiovascular: No deficits noted. Respiratory: No deficits noted. Airway is patent. GI: Abdomen is flat, non-distended, Abd is soft Abdomen is tender to palpation in pelvic area lower abdomen. : No deficits noted. No signs and/or symptoms were reported regarding the genitourinary system. EENT: No deficits noted. No signs and/or symptoms were reported regarding the EENT system. Derm: No deficits noted. No signs and/or symptoms reported regarding the dermatologic system. 19:14 General: Appears in no apparent distress. comfortable, Behavior is calm, cooperative, em6 appropriate for age. Pain: Complains of pain in abdomen and back. Neuro: Level of Consciousness is awake, alert, obeys commands, Oriented to person, place, time, situation, Appropriate for age. Cardiovascular: No deficits noted. Respiratory: Airway is patent Respiratory effort is even, unlabored, Respiratory pattern is regular, symmetrical. GI: Abdomen is flat, non-distended, Abd is soft X 4 quads. : No signs and/or symptoms were reported regarding the genitourinary system. EENT: No signs and/or symptoms were reported regarding the EENT system. Derm: No signs and/or symptoms reported regarding the dermatologic system. Musculoskeletal: Circulation, motion, and sensation intact. Range of motion:. 20:15 Reassessment: No changes from previously documented assessment. Patient and/or family em6 updated on plan of care and expected duration. Pain level reassessed. Patient is alert, oriented x 3, equal unlabored respirations, skin warm/dry/pink. 21:30 Reassessment: Patient appears in no apparent distress at this time. No changes from em6 previously documented assessment. Patient and/or family updated on plan of care and expected duration. Pain level reassessed. Patient is alert, oriented x 3, equal unlabored respirations, skin warm/dry/pink. waiting for antibiotic to finish to discharge. 22:30 Reassessment: No changes from previously documented assessment. Patient and/or family em6 updated on plan of care and expected duration. Pain level reassessed. Patient is alert, oriented x 3, equal unlabored respirations, skin warm/dry/pink. Vital Signs: 17:13 BP 102 / 71; Pulse 109; Resp 18; Temp 98.7; Pulse Ox 100% on R/A; Weight 81.65 kg; em6 Height 5 ft. 9 in. (175.26 cm); Pain 6/10; 17:15 BP 102 / 64; Pulse 95; Resp 16; Pulse Ox 100% ; db 18:30 BP 98 / 47; Pulse 47; Resp 92; Temp 99.0; Pulse Ox 98% ; Pain 6/10; db 19:47 BP 102 / 59; Pulse 78; Resp 16; Pulse Ox 100% on R/A; em6 20:57 BP 106 / 56; Pulse 79; Resp 16; Pulse Ox 10% on R/A; em6 22:30 BP 101 / 61; Pulse 83; Resp 16; Pulse Ox 99% on R/A; em6 17:13 Body Mass Index 26.58 (81.65 kg, 175.26 cm) em6 ED Course: 17:02 Patient arrived in ED. mr 17:02 Juana Rahman is Private Physician. mr 17:08 Roberto Martini, INTERNET DESIGNER is PHCP. pm1 17:08 Ifrah Burnett MD is Attending Physician. pm1 17:12 Nhi Geller, NENA is Primary Nurse. db 17:15 Triage completed. em6 17:16 Arm band placed on. em6 17:50 Inserted saline lock: 20 gauge in right antecubital area, using aseptic technique. db Blood collected. 19:05 Patient has correct armband on for positive identification. Bed in low position. Call db light in reach. Side rails up X 1. Report given to NENA Mckeon. 19:25 CT Abd/Pelvis - IV Contrast Only In Process Unspecified. EDMS 20:20 Chest Pa And Lat (2 Views) XRAY In Process Unspecified. EDMS 22:35 No provider procedures requiring assistance completed. em6 22:36 IV discontinued, intact, bleeding controlled, No redness/swelling at site. Pressure em6 dressing applied. Administered Medications: 17:56 Drug: NS 0.9% 1000 ml Route: IV; Rate: 1000 ml; Site: right forearm; db 19:00 Follow up: Response: No adverse reaction; IV Status: Completed infusion; IV Intake: db 1000ml 17:56 Drug: Ketorolac 30 mg Route: IVP; Site: right forearm; db 19:00 Follow up: Response: No adverse reaction db 20:01 Drug: Rocephin (cefTRIAXone) 1 grams Route: IV; Rate: calculated rate; Site: right em6 forearm; 20:48 Follow up: Response: No adverse reaction; IV Status: Completed infusion; IV Intake: [id number] 20:01 Not Given (Physician Discretion): Zithromax (azithromycin) 500 mg PO once em6 21:29 Drug: Zithromax (azithromycin) 500 mg Route: IVPB; Infused Over: 1 hrs; Site: right em6 antecubital; 22:35 Follow up: Response: No adverse reaction; IV Status: Completed infusion; IV Intake: em6 250ml Medication: 22:36 VIS not applicable for this client. em6 Intake: 19:00 IV: 1000ml; Total: 1000ml. db 20:48 IV: 10ml; Total: 1010ml. em6 22:35 IV: 250ml; Total: 1260ml. em6 Outcome: 21:12 Discharge ordered by . pm1 22:36 Discharged to home ambulatory. em6 22:36 Condition: stable 22:36 Discharge instructions given to patient, Instructed on discharge instructions, follow up and referral plans. medication usage, Demonstrated understanding of instructions, follow-up care, medications, Prescriptions given X 3. 22:39 Patient left the ED. em6 Signatures: Dispatcher [employer] EDFunmi MckeonRoberto, INTERNET DESIGNER INTERNET DESIGNER pm1 Linda Redding RN RN em6 Nhi Geller RN RN db Corrections: (The following items were deleted from the chart) 17:19 17:13 Chief complaint: Patient states: "today at 0830 I started having chills shortness em6 of breath and when I eat I cant keep it down. I'm having lower abdominal pain and lower back pain. em6 21:39 21:30 Reassessment: Patient appears in no apparent distress at this time. No changes em6 from previously documented assessment. Patient and/or family updated on plan of care and expected duration. Pain level reassessed. Patient is alert, oriented x 3, equal unlabored respirations, skin warm/dry/pink. waiting forantibiotic to finish to discharge em6 21:40 20:58 Response: No adverse reaction em6 em6 21:40 21:40 Response: No adverse reaction; IV Status: Completed infusion; IV Intake: 10ml em6 em6
[2022-09-15] MEDS ORDERED: AZITHROMYCIN 500 MG INJ IVPB ONE (21:17)
[2022-09-15] MEDS ORDERED: NA CHLORIDE 0.9% 250 ML ONE (21:18)
[2022-09-15 23:11] VITALS: TEMP 99
[2022-09-15 23:15] VITALS: BP 101/61; O2SAT 99
== END 2022-09-15 22:39 | disposition home or self-care (01) ==
LOC: ER 17:00
DX: J18.9 Pneumonia, unspecified organism (principal); Z20.822 Contact with and (suspected) exposure to COVID-19
CPT/HCPCS: 87070; 85025; 36415; 81025; 87081; 83690; 80053; 87804 ×2; 74177; 71046; U0003; Q9967; J0456; J7050; J7030; 81003; 81015; 99284